=== PATIENT | male | born 1935 | race Caucasian/White ===

== ENCOUNTER → 2016-07-23 | Outpatient (CLI) | payer MEDICARE, BC ==
--- NOTE | 2016-07-23 10:40 | US ---
EXAMINATION TYPE: US thyroid st tissue head/neck DATE OF EXAM: 07/23/2016 10:11 AM COMPARISON: In PACS CLINICAL HISTORY: 80-year-old male follow-up Thyroid Nodules. TECHNIQUE: Multiple sonographic images of the thyroid gland are obtained. FINDINGS: Right Lobe: 4.6 x 2.1 x 1.4 cm Left Lobe: 3.2 x 1.6 x 1.6 cm Isthmus Thickness: 0.5 cm There is heterogeneous glandular parenchyma. NODULES RIGHT: # of nodules measured on right: 3 1. 1.2 X 0.9 x 1.2 cm heterogeneous isoechoic solid nodule at the lower pole. This Nodule is wider than tall and shows intranodular vascularity. Prior size: 1.1 x 1.4 x 1.3 cm, previously biopsied, stable in size to slightly smaller. 2. 0.6 X 0.4 x 0.5 cm hypoechoic solid nodule at the upper pole with well-defined margins and horse identifier ior through transmission. This nodule is wider than tall and shows intranodular vascularity. Prior size: 0.6 x 0.5 x 0.4 cm, stable. 3. 0.5 X 0.4 x 0.5 cm hypoechoic solid nodule at the posterior mid pole with well-defined margins; T his nodule is wider than tall and shows no intranodular vascularity. Prior size: Not visualized on prior LEFT: # of nodules measured on left: 0 ISTHMUS: # of nodules measured in the isthmus: 0 IMPRESSION: 1. 3 nodules in the right lobe, the largest measures 1.2 cm and is stable to slightly smaller and was previously biopsied. 2. A 5 mm nodule in the posterior mid right lobe may be new and can be reassessed at follow-up.
== END | disposition home or self-care (01) ==
LOC: RADUSWWP 09:49
PROVIDERS: ATTEND Family Medicine
DX: E04.2 Nontoxic multinodular goiter (principal)
CPT/HCPCS: 76536

== ENCOUNTER → 2017-02-05 | Outpatient (CLI) | payer MEDICARE, BC ==
--- NOTE | 2017-02-05 09:41 | US ---
EXAMINATION TYPE: US thyroid st tissue head/neck DATE OF EXAM: 02/05/2017 COMPARISON: 2017 US CLINICAL HISTORY: E04.2 Nontoxic multinodular goiter. follow up on known nodules GLAND SIZE: Right Lobe: 4.4 x 1.7 x 1.3 cm Overall Parenchyma: heterogenous Left Lobe: 3.6 x 2.0 x 1.7 cm Overall Parenchyma: heterogeneous Isthmus Thickness: 0.4 cm NODULES RIGHT: # of nodules measured on right: 3 1. 1.2 X 0.9 x 1.3 cm isoechoic solid nodule at the upper pole with well-defined margins. This nod ule is wider than tall and shows intranodular vascularity. Prior size: 1.2 x 0.9 x 1.2 cm 2. 0.6 X 0.3 x 0.5 cm hypoechoic solid nodule at the upper pole with well-defined margins. This nod ule is wider than tall and shows intranodular vascularity. Prior size: 0.6 x 0.4 x 0.5 cm 3. 0.5 X 0.4 x 0.5 cm hypoechoic solid nodule at the posterior mid pole with well-defined margins. This nodule is wider than tall and shows intranodular vascularity. Prior size: 0.5 x 0.4 x 0.5 cm LEFT: # of nodules measured on left: 0 ISTHMUS: # of nodules measured in the isthmus: 0 Bilateral neck scanned, no evidence of lymphadenopathy. Some exam limitations as the thyroid sits very low and scanning needs to work around the sternal notc h. IMPRESSION: Thyroid nodules are stable from comparison 07/23/2016.
== END | disposition home or self-care (01) ==
LOC: RADUSWWP 09:02
PROVIDERS: ATTEND Family Medicine
DX: E04.2 Nontoxic multinodular goiter (principal)
CPT/HCPCS: 76536

== ENCOUNTER → 2017-08-03 | Outpatient (CLI) | payer MEDICARE, BC ==
--- NOTE | 2017-08-03 15:36 | US ---
EXAMINATION TYPE: US thyroid st tissue head/neck DATE OF EXAM: 08/03/2017 COMPARISON: Thyroid ultrasound February 05, 2017 CLINICAL HISTORY: E04.1 Nontoxic single thyroid nodule. follow up exam, not on meds, no symptoms GLAND SIZE: Right Lobe: 2.6 x 1.4 x 2.7 cm Overall Parenchyma: heterogenous Left Lobe: 2.7 x 1.2 x 2.0 cm Overall Parenchyma: heterogeneous Isthmus Thickness: 0.4 cm NODULES RIGHT: # of nodules measured on right: 1 1. 0.7 X 0.7 x 0.6 cm isoechoic solid nodule at the lower pole with well-defined margins. This nod ule is wider than tall and shows intranodular vascularity. Prior size: 1.2 x 0.9 x 1.3 cm LEFT: # of nodules measured on left: 0 ISTHMUS: # of nodules measured in the isthmus: 0 Bilateral neck scanned, no evidence of lymphadenopathy. Difficult to image IMPRESSION: Thyroid gland remains small in size and heterogeneous in appearance with stable poorly defined small nodule right thyroid lobe. Smaller nodules marked by technologist prior study are not marked on today 's study. No worrisome new greater than 1 cm solid or cystic nodules are seen.
== END | disposition home or self-care (01) ==
LOC: RADUSWWP 14:55
PROVIDERS: ATTEND Family Medicine
DX: E04.1 Nontoxic single thyroid nodule (principal)
CPT/HCPCS: 76536

== ENCOUNTER → 2019-01-26 | Outpatient (CLI) | payer MEDICARE, BC ==
--- NOTE | 2019-01-26 16:02 | US ---
EXAMINATION TYPE: US thyroid st tissue head/neck DATE OF EXAM: 01/26/2019 COMPARISON: 08/03/2017 and 02/05/2017. CLINICAL HISTORY: E04.1 nontoxic single thyroid nodule. follow up exam GLAND SIZE: Right Lobe: 4.1 x 1.4 x 2.4 cm Overall Parenchyma: heterogenous Left Lobe: 3.2 x 1.2 x 1.7 cm Overall Parenchyma: heterogeneous Isthmus Thickness: 0.3 cm NODULES RIGHT: # of nodules measured on right: 2 1. 0.7 x 0.5 x 0.4cm hypoechoic solid nodule at the mid pole with margins; . This nodule is taller than wide and shows intranodular vascularity. Prior size:0.6 x 0.5 x 0.3 cm 2. 0.5 X 0.6 x 0.6 cm solid nodule at the lower pole with poorly defined margins. This nodule is wi sharlene than tall and shows intranodular vascularity. Prior size: 0.7 x 0.7 x 0.6 cm LEFT: # of nodules measured on left: 0 ISTHMUS: # of nodules measured in the isthmus: 0 Bilateral neck scanned, no evidence of lymphadenopathy. Multiple subcentimeter nodule seen, measured largest on the right IMPRESSION: Overall similar size of the subcentimeter right thyroid nodules in comparison to the prior of 08/03/19 18 and 02/05/2017.
== END | disposition home or self-care (01) ==
LOC: RADUSWWP 11:09
PROVIDERS: ATTEND Family Medicine
DX: E04.2 Nontoxic multinodular goiter (principal)
CPT/HCPCS: 76536

== ENCOUNTER → 2020-09-05 | Outpatient (CLI) | payer MEDICARE, BC ==
--- NOTE | 2020-09-05 12:00 | US ---
EXAMINATION TYPE: US thyroid st tissue head/neck DATE OF EXAM: 09/05/2020 COMPARISON: US January 26, 2019 CLINICAL HISTORY: E04.1 Non-toxic. F/U previous GLAND SIZE: Right Lobe: 3.3 x 1.6 x 1.1 cm Overall Parenchyma: heterogenous Left Lobe: 2.6 x 1.3 x 1.2 cm Overall Parenchyma: heterogeneous Isthmus Thickness: 0.3 cm NODULES RIGHT: # of nodules measured on right: 2 1. 0.5 X 0.3 x 0.5 cm solid or almost completely solid, isoechoic nodule, which is wider than tall, with ill-defined margins, without echogenic foci. Prior size: 0.5 x 0.6 x 0.6 cm 2. 0.5 X 0.3 x 0.6 cm mixed cystic and solid, hypoechoic nodule, which is wider than tall, with ill -defined margins, without echogenic foci. Prior size: 0.5 x 0.4 x 0.7 cm Bilateral neck scanned, no evidence of lymphadenopathy. Stable sub-centimeter nodules right lobe. Persistent heterogeneous small sized thyroid with stable small right-sided nodules marked by technolo gist. IMPRESSION: As above. No new or enlarging greater than 1 cm solid nodules.
== END ==
LOC: RADUSWWP 10:55
PROVIDERS: ATTEND Family Medicine
DX: E04.2 Nontoxic multinodular goiter (principal)
CPT/HCPCS: 76536

== ENCOUNTER 2021-04-19 08:44 | Inpatient (IN) | payer MEDICARE, BC ==
[2021-04-19] MEDS ORDERED: SODIUM CHLORIDE 0.9% 1,000 ML IV STA (09:23)
[2021-04-19] MEDS ORDERED: KETOROLAC 15 MG/ML 1 ML VIAL IVP STA (09:26)
--- NOTE | 2021-04-19 09:26 | ED ---
Abdominal Pain HPI - General Chief Complaint: Abdominal Pain Stated Complaint: right side abd pain Time Seen by Provider: 04/19/21 08:58 Source: patient, family, RN notes reviewed Mode of arrival: ambulatory Limitations: no limitations - History of Present Illness Initial Comments: 85-year-old female with a prior history of appendectomy who states he had the onset 2 days ago of right lower quadrant abdominal pain constant somewhat achy nonradiating somewhat worse with movement no overt fevers chills or sweats no nausea vomiting diarrhea. He states is feeling somewhat better than had been currently is about 8/10 severity. No dysuria hematuria no history kidney stones he states. No other complaints or modifying factors MD Complaint: abdominal pain - Related Data Home Medications Medication Instructions Recorded Confirmed Cholecalciferol [Vitamin D3 (25 50 mcg PO DAILY 03/21/14 04/19/21 Mcg = 1000 Iu)] Pravastatin Sodium 40 mg PO HS 03/21/14 04/19/21 Potassium Chloride [Klor-Con 20] 20 meq PO HS 02/20/15 04/19/21 Potassium Chloride [Klor-Con 20] 40 meq PO DAILY 02/20/15 04/19/21 metFORMIN HCL [Glucophage] 500 mg PO AC-BID 12/18/15 04/19/21 Aspirin EC [Ecotrin Low Dose] 81 mg PO DAILY 04/19/21 04/19/21 Atenolol/Chlorthalidone 1 tab PO DAILY 04/19/21 04/19/21 [Atenolol/Chlorthalidone 100-25] Melatonin [Melatonin Disolving 10 mg PO HS 04/19/21 04/19/21 Tablet] Vitamin C/Biotin [Hair, Skin and 1 tab PO DAILY 04/19/21 04/19/21 Nails Chew] lisinopriL [Zestril] 2.5 mg PO DAILY 04/19/21 04/19/21 Allergies Allergy/AdvReac Type Severity Reaction Status Date / Time No Known Allergies Allergy Verified 04/19/21 13:34 Review of Systems ROS Statement: Those systems with pertinent positive or pertinent negative responses have been documented in the HPI. ROS Other: All systems not noted in ROS Statement are negative. Past Medical History Past Medical History: Diabetes Mellitus, Hearing Disorder / Deafness, Hyperlipidemia, Hypertension, Osteoarthritis (OA), Prostate Disorder, Thyroid Disorder Additional Past Medical History / Comment(s): 01/02/15 PT admitted to floor s/p total L knee. Other HX: Bradycardia, diet control diabetic, L neck mass which needs to be bx soon, enlarged prostate, hypothyroid, colon polyp, cataracts bilaterally, pain magangement consult for back pain History of Any Multi-Drug Resistant Organisms: None Reported Past Surgical History: Adenoidectomy, Appendectomy, Joint Replacement, Orthope dic Surgery, Tonsillectomy Additional Past Surgical History / Comment(s): 01/02/15 Total L knee arthroplasty, colonoscopy with polypectomy-benign, KNEE ARTHROSCOPIC LEFT X2, L knee injections, hemorrhoidectomy, PAIN CLINIC INJECTIONS Past Anesthesia/Blood Transfusion Reactions: No Reported Reaction Past Psychological History: No Psychological Hx Reported Smoking Status: Never smoker Past Alcohol Use History: None Reported Past Drug Use History: None Reported - Past Family History Father Family Medical History: COPD Additional Family Medical History / Comment(s): Father was a smoker. Brother(s) Family Medical History: Cancer Additional Family Medical History / Comment(s): colon Sister(s) Family Medical History: Cancer Additional Family Medical History / Comment(s): colon Mother Family Medical History: Cancer Additional Family Medical History / Comment(s): colon-had colostomy. at 82yrs. General Exam - General Exam Comments Initial Comments: This is a well-developed well-nourished awake alert oriented 3 male Limitations: no limitations General appearance: alert, in no apparent distress Head exam: Present: atraumatic, normocephalic, normal inspection Eye exam: Present: normal appearance, PERRL, EOMI. Absent: scleral icterus, conjunctival injection, periorbital swelling ENT exam: Present: normal exam, mucous membranes moist Neck exam: Present: normal inspection, full ROM. Absent: tenderness, meningismus, lymphadenopathy Respiratory exam: Present: normal lung sounds bilaterally. Absent: respiratory distress, wheezes, rales, rhonchi, stridor Cardiovascular Exam: Present: regular rate, normal rhythm, normal heart sounds. Absent: systolic murmur, diastolic murmur, rubs, gallop, clicks GI/Abdominal exam: Present: soft, tenderness, normal bowel sounds. Absent: distended, guarding, rebound, rigid, bruit, pulsatile mass, hernia (Tenderness palpation of the right lower quadrant radiating anterior lateral abdomen no localized guarding rebound masses or bruits however) Rectal exam: Present: deferred exam: Present: normal inspection Extremities exam: Present: normal inspection, full ROM, normal capillary refill. Absent: tenderness, pedal edema, joint swelling, calf tenderness Back exam: Present: normal inspection Neurological exam: Present: alert, oriented X3, CN II-XII intact Psychiatric exam: Present: normal affect, normal mood Skin exam: Present: warm, dry, intact, normal color. Absent: rash Course Vital Signs 04/19/21 04/19/21 04/19/21 08:46 09:52 11:07 Temperature 98.2 F Pulse Rate 82 75 72 Respiratory 18 18 18 Rate Blood Pressure 146/90 122/75 117/72 O2 Sat by Pulse 96 96 100 Oximetry 04/19/21 12:34 Temperature Pulse Rate 70 Respiratory 18 Rate Blood Pressure 111/59 O2 Sat by Pulse 95 Oximetry Medical Decision Making - Medical Decision Making I did discuss findings with patient family and Dr. Mcdowell and Dr. Garza. Patient be admitted place an IV antibiotics and further evaluation patient. - Lab Data Result diagrams: 04/19/21 09:47 04/19/21 09:47 Lab Results 04/19/21 04/19/21 04/19/21 Range/Units 09:47 09:47 09:47 WBC 25.1 H (3.8-10.6) k/uL RBC 5.12 (4.30-5.90) m/uL Hgb 15.6 (13.0-17.5) gm/dL Hct 46.2 (39.0-53.0) % MCV 90.2 (80.0-100.0) fL MCH 30.6 (25.0-35.0) pg MCHC 33.9 (31.0-37.0) g/dL RDW 13.4 (11.5-15.5) % Plt Count 255 (150-450) k/uL MPV 6.7 Neutrophils % 85 % Lymphocytes % 8 % Monocytes % 4 % Eosinophils % 1 % Basophils % 0 % Neutrophils # 21.4 H (1.3-7.7) k/uL Lymphocytes # 2.1 (1.0-4.8) k/uL Monocytes # 1.1 H (0-1.0) k/uL Eosinophils # 0.2 (0-0.7) k/uL Basophils # 0.1 (0-0.2) k/uL Sodium 130 L (137-145) mmol/L Potassium 4.1 (3.5-5.1) mmol/L Chloride 97 L (98-107) mmol/L Carbon Dioxide 23 (22-30) mmol/L Anion Gap 10 mmol/L BUN 15 (9-20) mg/dL Creatinine 0.79 (0.66-1.25) mg/dL Est GFR (CKD-EPI)AfAm >90 (>60 ml/min/1.73 sqM) Est GFR (CKD-EPI)NonAf 82 (>60 ml/min/1.73 sqM) Glucose 153 H (74-99) mg/dL Plasma Lactic Acid Mason 1.3 (0.7-2.0) mmol/L Calcium 9.7 (8.4-10.2) mg/dL Total Bilirubin 2.8 H (0.2-1.3) mg/dL AST 20 (17-59) U/L ALT 13 (4-49) U/L Alkaline Phosphatase 54 (38-126) U/L Troponin I (0.000-0.034) ng/mL Total Protein 7.5 (6.3-8.2) g/dL Albumin 4.1 (3.5-5.0) g/dL Amylase 63 (30-110) U/L Lipase 39 (23-300) U/L Urine Color Urine Appearance (Clear) Urine pH (5.0-8.0) Ur Specific [place] (1.001-1.035) Urine Protein (Negative) Urine Glucose (UA) (Negative) Urine Ketones (Negative) Urine Blood (Negative) Urine Nitrite (Negative) Urine Bilirubin (Negative) Urine Urobilinogen (<2.0) mg/dL Ur Leukocyte Esterase (Negative) 04/19/21 04/19/21 Range/Units 09:47 11:07 WBC (3.8-10.6) k/uL RBC (4.30-5.90) m/uL Hgb (13.0-17.5) gm/dL Hct (39.0-53.0) % MCV (80.0-100.0) fL MCH (25.0-35.0) pg MCHC (31.0-37.0) g/dL RDW (11.5-15.5) % Plt Count (150-450) k/uL MPV Neutrophils % % Lymphocytes % % Monocytes % % Eosinophils % % Basophils % % Neutrophils # (1.3-7.7) k/uL Lymphocytes # (1.0-4.8) k/uL Monocytes # (0-1.0) k/uL Eosinophils # (0-0.7) k/uL Basophils # (0-0.2) k/uL Sodium (137-145) mmol/L Potassium (3.5-5.1) mmol/L Chloride (98-107) mmol/L Carbon Dioxide (22-30) mmol/L Anion Gap mmol/L BUN (9-20) mg/dL Creatinine (0.66-1.25) mg/dL Est GFR (CKD-EPI)AfAm (>60 ml/min/1.73 sqM) Est GFR (CKD-EPI)NonAf (>60 ml/min/1.73 sqM) Glucose (74-99) mg/dL Plasma Lactic Acid Mason (0.7-2.0) mmol/L Calcium (8.4-10.2) mg/dL Total Bilirubin (0.2-1.3) mg/dL AST (17-59) U/L ALT (4-49) U/L Alkaline Phosphatase (38-126) U/L Troponin I <0.012 (0.000-0.034) ng/mL Total Protein (6.3-8.2) g/dL Albumin (3.5-5.0) g/dL Amylase (30-110) U/L Lipase (23-300) U/L Urine Color Yellow Urine Appearance Clear (Clear) Urine pH 6.5 (5.0-8.0) Ur Specific [place] 1.015 (1.001-1.035) Urine Protein Trace H (Negative) Urine Glucose (UA) Negative (Negative) Urine Ketones Negative (Negative) Urine Blood Negative (Negative) Urine Nitrite Negative (Negative) Urine Bilirubin Negative (Negative) Urine Urobilinogen 2.0 (<2.0) mg/dL Ur Leukocyte Esterase Negative (Negative) - Radiology Data Radiology results: report reviewed (Imaging reviewed evidence of cholecystitis with cholelithiasis), image reviewed Disposition Clinical Impression: Abdominal pain, Acute cholecystitis, Cholelithiasis, Leukocytosis Disposition: ADMITTED IP TO THIS HOSP Condition: Fair Referrals: Waldemar Phillips DO [Primary Care Provider] - 1-2 days
--- NOTE | 2021-04-19 09:49 | XR ---
KUB HISTORY: Abdominal pain. COMPARISON: None. TECHNIQUE: 2 upright views the abdomen were obtained. FINDINGS: The visualized lung bases are clear. There is no free air beneath the diaphragm. The bowel gas pattern is nonspecific and there is no evidence of obstruction. No suspicious abdominal or pelvic calcification are seen. The osseous structures are intact. There are degenerative changes in the hips and lumbar spine. IMPRESSION: Nonspecific abdomen without evidence of free air or obstruction.
[2021-04-19 09:53] LABS: Basophils # (A) 0.1 k/uL (0-0.2); Basophils % (A) 0 %; Eosinophils # (A) 0.2 k/uL (0-0.7); Eosinophils % (A) 1 %; HCT 46.2 % (39.0-53.0); HGB 15.6 gm/dL (13.0-17.5); Lymphocytes # (A) 2.1 k/uL (1.0-4.8); Lymphocytes % (A) 8 %; MCH 30.6 pg (25.0-35.0); MCHC 33.9 g/dL (31.0-37.0); MCV 90.2 fL (80.0-100.0); Mean Platelet Volume 6.7; Monocytes # (A) 1.1 k/uL (0-1.0); Monocytes % (A) 4 %; Neutrophils # (A) 21.4 k/uL (1.3-7.7); Neutrophils % (A) 85 %; Platelet Count 255 k/uL (150-450); RBC 5.12 m/uL (4.30-5.90); RDW 13.4 % (11.5-15.5); WBC 25.1 k/uL (3.8-10.6)
[2021-04-19 10:26] LABS: ALT 13 U/L (4-49); AST 20 U/L (17-59); African American GFR (CKD) >90 (>60 ml/min/1.73 sqM); Albumin 4.1 g/dL (3.5-5.0); Alkaline Phosphatase 54 U/L (38-126); Amylase 63 U/L (30-110); Anion Gap 10 mmol/L; Blood Urea Nitrogen 15 mg/dL (9-20); Calcium 9.7 mg/dL (8.4-10.2); Carbon Dioxide 23 mmol/L (22-30); Chloride 97 mmol/L (98-107); Glucose 153 mg/dL (74-99); Lipase 39 U/L (23-300); Non-African American GFR(CKD) 82 (>60 ml/min/1.73 sqM); Potassium 4.1 mmol/L (3.5-5.1); Sodium 130 mmol/L (137-145); Total Bilirubin 2.8 mg/dL (0.2-1.3); Total Protein 7.5 g/dL (6.3-8.2)
[2021-04-19 11:32] LABS: Appearance,Urine Clear (Clear); Bilirubin,Urine Negative (Negative); Blood,Urine Negative (Negative); Color,Urine Yellow; Glucose,Urine (UA) Negative (Negative); Ketones,Urine Negative (Negative); Leukocyte Esterase,Urine Negative (Negative); Nitrite,Urine Negative (Negative); PH, Urine 6.5 (5.0-8.0); Protein,Urine Trace (Negative); Specific Gravity,Urine 1.015 (1.001-1.035)
--- NOTE | 2021-04-19 12:41 | CT ---
EXAMINATION TYPE: CT abdomen pelvis w con DATE OF EXAM: 04/19/2021 COMPARISON: None HISTORY: Right-sided abdominal pain CT DLP: 1328 mGycm Automated exposure control for dose reduction was used. TECHNIQUE: Helical acquisition of images was performed from the lung bases through the pelvis. CONTRAST: 100 mL nonionic IV contrast. FINDINGS: There is mild interstitial scarring or atelectasis the right lung base otherwise the visualized lung bases are clear of significant pleural effusion or airspace consolidation. The gallbladder is mildly distended there are multiple gallstones. The wall is mildly thickened and t here is pericholecystic inflammation. The findings are consistent with acute cholecystitis. There is no intrahepatic biliary ductal dilatation. There is no focal mass within the liver, pancreas spleen o r adrenal glands. The kidneys excrete contrast promptly and symmetrically is no solid renal mass or hydronephrosis. The re is a simple cortical cyst of the right kidney. There is no retroperitoneal adenopathy or hemorrhage in the caliber of the abdominal aorta is normal. The bowel loops are normal in caliber and there is no evidence of obstruction. There is marked divert iculosis of the colon but no CT evidence of diverticulitis. There is a suggestion of a mass along rig ht lateral aspect of the urinary bladder but evaluation of bladder is limited due to lack of contrast within the bladder. There is no pelvic adenopathy or free fluid. The osseous structures are grossly intact. IMPRESSION: 1. Findings consistent with acute cholecystitis with cholelithiasis. 2. questionable mass within the urinary bladder and further evaluation is warranted.
[2021-04-19] MEDS ORDERED: PIPERACILLIN-TAZOBACTAM 3.375 GM in SODIUM CHLORIDE 0.9% 100 ML IVPB STA (13:42)
[2021-04-19] MEDS ORDERED: NALOXONE 0.4 MG/ML 1 ML VIAL IV PRN (13:45)
[2021-04-19] MEDS: SODIUM CHLORIDE 0.9% 1,000 ML IV SCH ×2 (14:15→21:11)
--- NOTE | 2021-04-19 18:31 | P.GSCN ---
History of Present Illness Consult date: 04/19/21 History of present illness: CHIEF COMPLAINT: Right upper quadrant abdominal pain 3 days HISTORY OF PRESENT ILLNESS: The patient is a 85 year old male who presents to the emergency room after developing severe right upper quadrant abdominal pain 3 days ago. Patient reports having chicken soup including ice cream. Denies any prior episodes. He had nausea and vomiting. Since admission, he reports abdominal has improved after medications. Denies any significant cardiac disease. PAST MEDICAL HISTORY: See list and reviewed PAST SURGICAL HISTORY: See list and reviewed MEDICATIONS: See list and reviewed ALLERGIES: See list and reviewed SOCIAL HISTORY: See list and reviewed FAMILY HISTORY: See list and reviewed REVIEW OF ORGAN SYSTEMS: CONSTITUTIONAL: No fevers or chills. EYES: Denies any trouble with vision. Wears glasses. HEENT: Has difficulties with hearing. No nosebleeds. No difficulty swallowing. RESPIRATORY: Denies pneumonia. Denies any troubles with breathing or dyspnea on exertion. CARDIOVASCULAR: Denies any chest pain, palpitations, or recent heart attacks. Has hypertensive heart disease. Has hyperlipidemia. GASTROINTESTINAL: Denies fatty food intolerance. Denies change in bowel habits and gas bloat. GENITOURINARY: Denies any blood in urine or increased urinary frequency. He has enlarged prostate. NEUROLOGICAL: Denies any numbness or tingling along the distal extremities. No seizure disorders or headaches. MUSCULOSKELETAL: Has back pain, stiffness or joint arthritis. SKIN: No current skin cancer. No rash. PSYCHIATRIC: Denies current depression or suicidal thoughts. ENDOCRINE: Has hypothyroidism. Has diabetes type 2 [id number] HEME/LYMPHATIC: Denies any lumps and bumps around the neck. No recent deep venous thrombosis. ALLERGY/IMMUNOLOGY: No immunoglobulin therapy. No immune deficiencies. BREAST: Denies current breast lumps, pain or nipple discharge. PHYSICAL EXAM: VITALS: Reviewed CONSTITUTIONAL: Well developed and in no acute distress. EYES: Conjuctivae without sclera icterus. Extraocular movements grossly intact. HEAD, EARS, NOSE, THROAT: Moist buccal mucosa. Head is atraumatic, normocephalic. Hears conversational speech. No nasal drainage. NECK: Supple. No JV distention. No thyroidomegaly. RESPIRATORY: Non-labored respirations and equal bilateral excursions. No gross wheezes. CARDIOVASCULAR: Regular rate and rhythm. Extremities without moderate edema. Palpable 2+ radial pulses. ABDOMEN: Mild tenderness right upper quadrant. No peritonitis. LYMPH: No neck lymphadenopathy. MUSCULOSKELETAL: Nail and fingers with good capillary refill. SKIN: Warm and well perfused with good skin turgor. NEUROLOGIC: Cranial nerves II through XII grossly intact. Sensation upper and extremities intact. No focal or lateralizing signs. PSYCH: Appropriate affect. Alert and oriented to person, place and time. Displays appropriate insight. CLINCAL LABS: Reviewed. WBC elevated over 25,000. Sodium low at 130. Total bilirubin elevated at 2.8. IMAGING: Independently reviewed CT of the abdomen and pelvis independently reviewed demonstrates diverticulosis. Gallstones with dilated gallbladder inflammatory changes identified with cholecystitis. Left inguinal hernia with sigmoid colon identified. RADIOLOGY: Report reviewed of the CT of the abdomen and pelvis demonstrates questionable mass in the bladder. ASSESSMENT: 1. Acute cholecystitis with leukocytosis and sepsis 2. Left inguinal hernia with large bowel 3. Diabetes type 2, [id number]-hkojkbnot 4. Hypertensive heart disease PLAN: 1. IV antibiotics for sepsis and acute cholecystitis 2. 12-lead EKG advised 3. Robotic cholecystectomy reviewed with the patient and wrists due to hypertensive heart disease including diabetes ADVANCE DIRECTIVE: Thank you for this kind consultation. Past Medical History Past Medical History: Diabetes Mellitus, Hearing Disorder / Deafness, Hyperlipidemia, Hypertension, Osteoarthritis (OA), Prostate Disorder, Thyroid Disorder Additional Past Medical History / Comment(s): 01/02/15 PT admitted to floor s/p total L knee. Other HX: Bradycardia, diet control diabetic, L neck mass which needs to be bx soon, enlarged prostate, hypothyroid, colon polyp, cataracts bilaterally, pain magangement consult for back pain History of Any Multi-Drug Resistant Organisms: None Reported Past Surgical History: Adenoidectomy, Appendectomy, Joint Replacement, Orthopedic Surgery, Tonsillectomy Additional Past Surgical History / Comment(s): 01/02/15 Total L knee arthroplasty, colonoscopy with polypectomy-benign, KNEE ARTHROSCOPIC LEFT X2, L knee injections, hemorrhoidectomy, PAIN CLINIC INJECTIONS Past Anesthesia/Blood Transfusion Reactions: No Reported Reaction Past Psychological History: No Psychological Hx Reported Smoking Status: Never smoker Past Alcohol Use History: None Reported Past Drug Use History: None Reported - Past Family History Father Family Medical History: COPD Additional Family Medical History / Comment(s): Father was a smoker. Brother(s) Family Medical History: Cancer Additional Family Medical History / Comment(s): colon Sister(s) Family Medical History: Cancer Additional Family Medical History / Comment(s): colon Mother Family Medical History: Cancer Additional Family Medical History / Comment(s): colon-had colostomy. at 82yrs. Medications and Allergies Home Medications Medication Instructions Recorded Confirmed Type Cholecalciferol [Vitamin D3 (25 50 mcg PO DAILY 03/21/14 04/19/21 History Mcg = 1000 Iu)] Pravastatin Sodium 40 mg PO HS 03/21/14 04/19/21 History Potassium Chloride [Klor-Con 20] 20 meq PO HS 02/20/15 04/19/21 History Potassium Chloride [Klor-Con 20] 40 meq PO DAILY 02/20/15 04/19/21 History metFORMIN HCL [Glucophage] 500 mg PO AC-BID 12/18/15 04/19/21 History Aspirin EC [Ecotrin Low Dose] 81 mg PO DAILY 04/19/21 04/19/21 History Atenolol/Chlorthalidone 1 tab PO DAILY 04/19/21 04/19/21 History [Atenolol/Chlorthalidone 100-25] Melatonin [Melatonin Disolving 10 mg PO HS 04/19/21 04/19/21 History Tablet] Vitamin C/Biotin [Hair, Skin and 1 tab PO DAILY 04/19/21 04/19/21 History Nails Chew] lisinopriL [Zestril] 2.5 mg PO DAILY 04/19/21 04/19/21 History Allergies Allergy/AdvReac Type Severity Reaction Status Date / Time No Known Allergies Allergy Verified 04/19/21 13:34 Surgical - Exam Vital Signs Temp Pulse Resp BP Pulse Ox 98.2 F 82 18 146/90 96 04/19/21 08:46 04/19/21 08:46 04/19/21 08:46 04/19/21 08:46 04/19/21 08:46 Results - Labs 04/19/21 09:47 04/19/21 09:47 Abnormal Lab Results - Last 24 Hours (Table) 04/19/21 04/19/21 04/19/21 Range/Units 09:47 09:47 11:07 WBC 25.1 H (3.8-10.6) k/uL Neutrophils # 21.4 H (1.3-7.7) k/uL Monocytes # 1.1 H (0-1.0) k/uL Sodium 130 L (137-145) mmol/L Chloride 97 L (98-107) mmol/L Glucose 153 H (74-99) mg/dL Total Bilirubin 2.8 H (0.2-1.3) mg/dL Urine Protein Trace H (Negative) Diabetes panel 04/19/21 Range/Units 09:47 Sodium 130 L (137-145) mmol/L Potassium 4.1 (3.5-5.1) mmol/L Chloride 97 L (98-107) mmol/L Carbon Dioxide 23 (22-30) mmol/L BUN 15 (9-20) mg/dL Creatinine 0.79 (0.66-1.25) mg/dL Glucose 153 H (74-99) mg/dL Calcium 9.7 (8.4-10.2) mg/dL AST 20 (17-59) U/L ALT 13 (4-49) U/L Alkaline Phosphatase 54 (38-126) U/L Total Protein 7.5 (6.3-8.2) g/dL Albumin 4.1 (3.5-5.0) g/dL Calcium panel 04/19/21 Range/Units 09:47 Calcium 9.7 (8.4-10.2) mg/dL Albumin 4.1 (3.5-5.0) g/dL Pituitary panel 04/19/21 Range/Units 09:47 Sodium 130 L (137-145) mmol/L Potassium 4.1 (3.5-5.1) mmol/L Chloride 97 L (98-107) mmol/L Carbon Dioxide 23 (22-30) mmol/L BUN 15 (9-20) mg/dL Creatinine 0.79 (0.66-1.25) mg/dL Glucose 153 H (74-99) mg/dL Calcium 9.7 (8.4-10.2) mg/dL Adrenal panel 04/19/21 Range/Units 09:47 Sodium 130 L (137-145) mmol/L Potassium 4.1 (3.5-5.1) mmol/L Chloride 97 L (98-107) mmol/L Carbon Dioxide 23 (22-30) mmol/L BUN 15 (9-20) mg/dL Creatinine 0.79 (0.66-1.25) mg/dL Glucose 153 H (74-99) mg/dL Calcium 9.7 (8.4-10.2) mg/dL Total Bilirubin 2.8 H (0.2-1.3) mg/dL AST 20 (17-59) U/L ALT 13 (4-49) U/L Alkaline Phosphatase 54 (38-126) U/L Total Protein 7.5 (6.3-8.2) g/dL Albumin 4.1 (3.5-5.0) g/dL Assessment and Plan (1) Sepsis Current Visit: Yes Status: Acute Code(s): A41.9 - SEPSIS, UNSPECIFIED ORGANISM SNOMED Code(s): 12094521 (2) Acute cholecystitis Current Visit: Yes Status: Acute Code(s): K81.0 - ACUTE CHOLECYSTITIS SNOMED Code(s): 46384445 (3) Cholelithiasis Current Visit: Yes Status: Acute Code(s): K80.20 - CALCULUS OF GALLBLADDER W/O CHOLECYSTITIS W/O OBSTRUCTION SNOMED Code(s): 716421102 (4) Leukocytosis Current Visit: Yes Status: Acute Code(s): D72.829 - ELEVATED WHITE BLOOD CELL COUNT, UNSPECIFIED SNOMED Code(s): 691329097
--- NOTE | 2021-04-19 18:54 | XR ---
EXAMINATION TYPE: XR chest 2V DATE OF EXAM: 04/19/2021 COMPARISON: 01/17/2011 HISTORY: Short of breath TECHNIQUE: FINDINGS: Heart is normal. There is some minimal reticular nodular density left upper lobe. There is no pulmonary consolidation. There are no hilar masses. Costophrenic angles are clear. Bony thorax is intact. IMPRESSION: Minimal nodular infiltrate left upper lobe appears new compared to old exam. No suspiciou s pulmonary mass. No heart failure.
[2021-04-19] MEDS: HEPARIN SODIUM,PORCINE/PF 5,000 UNIT/0.5 ML SYRINGE SQ SCH (21:11)
[2021-04-19] MEDS: PRAVASTATIN SODIUM 40 MG TAB PO SCH (21:11)
[2021-04-19] MEDS: MELATONIN 5 MG TABLET PO SCH (21:12)
[2021-04-20] MEDS: PIPERACILLIN-TAZOBACTAM 3.375 GM in SODIUM CHLORIDE 0.9% 100 ML IVPB SCH ×3 (00:19→14:55)
[2021-04-20] MEDS: SODIUM CHLORIDE 0.9% 1,000 ML IV SCH ×2 (05:51→14:55)
[2021-04-20] MEDS: HEPARIN SODIUM,PORCINE/PF 5,000 UNIT/0.5 ML SYRINGE SQ SCH ×2 (07:36→21:22)
[2021-04-20] MEDS: atenoloL 50 MG TAB PO SCH (08:32)
--- NOTE | 2021-04-20 10:03 | P.PN ---
Subjective Progress Note Date: 04/20/21 CHIEF COMPLAINT: Right upper quadrant abdominal pain, cholecystitis. HISTORY OF PRESENT ILLNESS: The patient is a 85 year old male who presented to the emergency room with CT findings of acute cholecystitis and leukocytosis WBC over 20k. He reports he feels well. He does see a cook chill technician, "my heart is a little slow." REVIEW OF ORGAN SYSTEMS: "I have a slow heart." Denies active chest pain. No cur rent shortness of breath. No nausea or vomiting. PHYSICAL EXAM: VITALS: Reviewed CONSTITUTIONAL: Well developed and in no acute distress. EYES: Conjuctivae without sclera icterus. Extraocular movements grossly intact. HEAD, EARS, NOSE, THROAT: Moist buccal mucosa. Head is atraumatic, normocep halic. Hears conversational speech. No nasal drainage. Wears glasses. NECK: Supple. No JV distention. No thyroidomegaly. RESPIRATORY: Non-labored respirations and equal bilateral excursions. No gross wheezes. Oxygen saturation low less than 92%, new. CARDIOVASCULAR: Palpable 2+ radial pulses. ABDOMEN: Mild tenderness right upper quadrant. No peritonitis. MUSCULOSKELETAL: Nail and fingers with good capillary refill. SKIN: Warm and well perfused with good skin turgor. NEUROLOGIC: Cranial nerves II through XII grossly intact. Sensation upper and extremities intact. No focal or lateralizing signs. PSYCH: Appropriate affect. Alert and oriented to person, place and time. Displays appropriate insight. CLINCAL LABS: Reviewed. WBC elevated over 25,000. Current labs pending. EKG: Abnormal with right bundle branch block and 1st degree AV block. (no prior for comparison) ASSESSMENT: 1. Acute cholecystitis with leukocytosis and sepsis 2. Left inguinal hernia with large bowel 3. Diabetes type 2, ovz-roirfmd-tcswqztof 4. Hypertensive heart disease 5. 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 With current abnormalities and high risk surgery, recommend cardiac risk stratification with cardiology consultation. 2. Surgery canceled. 3. Alternatives for less invasive procedures available. 4. Will get HIDA scan for possible cholecystostomy tube placement. 5. Continue IV antibiotics. 6. Recommend incentive spirometry. Objective - Vital Signs Vital signs: Vital Signs Temp 97.9 F 04/20/21 08:00 Pulse 71 04/20/21 08:00 Resp 16 04/20/21 08:00 BP 121/77 04/20/21 08:00 Pulse Ox 92 L 04/20/21 08:00 Intake & Output 04/19/21 04/20/21 04/20/21 18:59 06:59 18:59 Intake Total 360 Balance 360 Weight 83.007 kg Intake: Oral 360 Other: Voiding Method Toilet Urinal # Voids 2 - Labs CBC & Chem 7: 04/19/21 09:47 04/19/21 09:47 Labs: Abnormal Lab Results - Last 24 Hours (Table) 04/19/21 04/19/21 Range/Units 09:47 11:07 Sodium 130 L (137-145) mmol/L Chloride 97 L (98-107) mmol/L Glucose 153 H (74-99) mg/dL Total Bilirubin 2.8 H (0.2-1.3) mg/dL Urine Protein Trace H (Negative) Assessment and Plan (1) Sepsis Current Visit: Yes Status: Acute Code(s): A41.9 - SEPSIS, UNSPECIFIED ORGANISM SNOMED Code(s): 20820926 (2) Acute cholecystitis Current Visit: Yes Status: Acute Code(s): K81.0 - ACUTE CHOLECYSTITIS SNOMED Code(s): 89210346 (3) Cholelithiasis Current Visit: Yes Status: Acute Code(s): K80.20 - CALCULUS OF GALLBLADDER W/O CHOLECYSTITIS W/O OBSTRUCTION SNOMED Code(s): 529637263 (4) Leukocytosis Current Visit: Yes Status: Acute Code(s): D72.829 - ELEVATED WHITE BLOOD CELL COUNT, UNSPECIFIED SNOMED Code(s): 383921965 (5) AV block, 1st degree Current Visit: Yes Status: Acute Code(s): I44.0 - ATRIOVENTRICULAR BLOCK, FIRST DEGREE SNOMED Code(s): 073252453 (6) Right bundle branch block (RBBB) Current Visit: Yes Status: Acute Code(s): I45.10 - UNSPECIFIED RIGHT BUNDLE- BRANCH BLOCK SNOMED Code(s): 58551601
--- NOTE | 2021-04-20 10:05 | CONS ---
CONSULTATION CHIEF COMPLAINT: Preop cardiac evaluation. HISTORY OF PRESENT ILLNESS: This is an 85-year-old gentleman with history of [id number]-ufxycdnfp diabetes, hypertension, dyslipidemia, who presented to hospital with right upper quadrant pain and had been diagnosed with acute cholecystitis. He is to undergo surgery by Dr. Tineo today. We have been consulted for preop cardiac evaluation. His EKG shows sinus rhythm with right bundle branch block and first-degree AV block. The patient carries a history of bradycardia and sees my associate Dr. Salazar on a regular basis. There is no prior history of coronary artery disease or congestive heart failure. There is no prior history of syncope. Prior to this admission, patient has been fairly active and did not have shortness of breath, leg edema, PND, orthopnea, chest pain with activity. I will obtain a 2D echo to document his LV function. I do not see any contraindications for surgery under anesthesia at this time. PAST MEDICAL HISTORY: Significant for ozc-bpervgr-zuhxmkzcz diabetes, hypertension, dyslipidemia, and bradycardia. MEDICATIONS: Include Glucophage 500 b.i.d., Zestril 2.5 daily, pravastatin 40 daily, K-Dur 20 daily, melatonin, Tenoretic, aspirin. ALLERGIES: There are no known drug allergies. FAMILY HISTORY: Negative for premature coronary artery disease. SOCIAL HISTORY: Negative for smoking, EtOH abuse, or drug abuse. REVIEW OF SYSTEMS: HEENT is unremarkable. CARDIAC as described above. RESPIRATORY: Negative. GI as described above. GENITOURINARY negative. ALLERGY/IMMUNOLOGY: None. SKIN negative. MUSCULOSKELETAL negative. ENDOCRINE negative. CONSTITUTIONAL: Negative. ONCOLOGICAL: Negative. BAR ATTENDANT negative. Rest of the system review is not relevant. PHYSICAL EXAMINATION: Afebrile. Heart rate is 70 beats per minute. Blood pressure is 120/77, respiratory 16. There is no jugular venous distention. Carotid upstroke is normal. There is no bruit. Chest exam reveals good air entry bilaterally. Heart exam reveals first and second heart sounds and a systolic murmur at the apex. Abdomen is soft. There is mild tenderness in the right upper quadrant. Examination of the EXTREMITIES did not reveal any edema. Peripheral pulses are felt. EKG shows sinus rhythm with right bundle branch block and first-degree AV block. LABS: Labs show that the hemoglobin is 15.6, white cell count is elevated at 25, potassium is 4.1 creatinine is 0.7. Troponin is negative. ASSESSMENT: 1. Preop cardiac evaluation. 2. Acute cholecystitis. 3. Hypertension. 4. Abnormal EKG. 5. History of bradycardia. PLAN: There are no contraindications to surgery under anesthesia at this time. The patient is not in overt heart failure, is not having acute coronary syndrome and physical exam does not reveal aortic stenosis. I will obtain a 2D echo on him to evaluate his LV function, but proceed with surgery. EZEKIEL / EULALIA: [id number] /
[2021-04-20 11:13] LABS: HCT 42.8 % (39.6-50.0); HGB 14.6 g/dL (13.0-17.0); MCH 30.5 pg (27.0-32.0); MCHC 34.1 g/dL (32.0-37.0); MCV 89.5 fL (80.0-97.0); Mean Platelet Volume 9.4 fL (9.5-12.2); Platelet Count 248 X 10*3/uL (140-440); RBC 4.78 X 10*6/uL (4.40-5.60); RDW 14.3 % (11.5-14.5)
[2021-04-20 11:43] LABS: Basophils # (A) 0.07 X 10*3/uL (0.00-0.10); Basophils % (A) 0.3 %; Eosinophils # (A) 0.07 X 10*3/uL (0.04-0.35); Eosinophils % (A) 0.3 %; Lymphocytes # (A) 2.18 X 10*3/uL (0.90-5.00); Lymphocytes % (A) 10.8 %; Monocytes # (A) 1.55 X 10*3/uL (0.20-1.00); Monocytes % (A) 7.7 %; Neutrophils # (A) 16.22 X 10*3/uL (1.80-7.70); Neutrophils % (A) 80.4 %
[2021-04-20 11:56] LABS: African American GFR (CKD) 88.3 (60.0-200.0); Albumin 3.9 g/dL (3.8-4.9); Albumin/Globulin Ratio 1.33 (1.60-3.17); Anion Gap 14.5 mmol/L (4.00-12.00); BUN/Creat Ratio 14.19 Ratio (12.00-20.00); Blood Urea Nitrogen 12.9 mg/dL (9.0-27.0); Globulin 2.9 g/dL (1.6-3.3); Non-African American GFR(CKD) 76.1 (60.0-200.0); Potassium 3.6 mmol/L (3.5-5.5); Total Bilirubin 2.2 mg/dL (0.30-1.20); Total Protein 6.8 g/dL (6.2-8.2)
[2021-04-20] MEDS ORDERED: PIPERACILLIN-TAZOBACTAM 3.375 GM in SODIUM CHLORIDE 0.9% 100 ML IVPB SCH (12:05)
--- NOTE | 2021-04-20 13:42 | P.HPIM ---
History of Present Illness H&P Date: 04/20/21 Chief Complaint: Abdominal pain History of presenting complaint: This is a pleasant 85 year old patient of Dr. Phillips. Chronic stable medical conditions include diabetes, hypertension, osteoarthritis, hyperlipidemia, hypothyroid, BPH chronic back pain. Lives with his . Patient is very active for his age. Walks 2 or 3 blocks everyday. Does water aerobics and plays golf. Patient does deny started having abdominal pain and felt a bit better on Wednesday. Did have some nausea vomiting. Pain came back again. Which was in the upper abdomen. No fever no chills. Otherwise appetite has been good. Ultrasound did show cholecystitis. Patient denies any cardiac history. Review of systems: GEN.: Tired EYES: None HEENT: Decreased hearing NECK: None RESPIRATORY: None CARDIOVASCULAR: None GASTROINTESTINAL: As above GENITOURINARY: None MUSCULOSKELETAL: Joint pains LYMPHATICS: None HEMATOLOGICAL: None PSYCHIATRY: None NEUROLOGICAL: None Past medical history to include: Diabetes mellitus, heart of hearing, hypertension, hyperlipidemia, osteoarthritis, BPH, hypothyroid, left neck mass for workup, colon polyps, low back pain, Social history: . Has been using a cane since August 2014. Does drive a car. No smoking. Occasional cigar. Stopped in 1979. No alcohol. Family history: COPD Physical examination: VITAL SIGNS: 97.9, 71, 16, 121/77, 92% room air GENERAL: BMI 27, sitting up, comfortable,. EYES: Pupils equal. Conjunctiva normal. HEENT: External appearance of nose and ears normal, oral cavity grossly normal. NECK: JVD not raised; masses not palpable. HEART: First and second heart sounds are normal; no edema. LUNGS: Respiratory rate normal; clear to auscultation. ABDOMEN: Soft, right upper quadrant tenderness, no guarding rigidity, liver spleen not palpable, no masses palpable. PSYCH: Alert and oriented x3; mood and affect normal. MUSCULAR skeletal: Evidence of OA NEUROLOGICAL: Cranial nerves grossly intact; no facial asymmetry, power and sensation grossly intact. LYMPHATICS: No lymph nodes palpable in the axilla and neck INVESTIGATIONS, reviewed in the clinical context: April 20: WBC 20.2 hemoglobin 14.6 platelets 248 potassium 3.6 creatinine 0.9 Admission labs: UA negative Coronavirus [PCR]: Not detected Sodium 1:30 WBC 25.1 Chest x-ray film personally reviewed by me-borderline currently. Some chronic changes. EKG tracing personally reviewed by me-normal sinus rhythm. Right bundle-branch block. Rate 69 Computed tomography scan of the abdomen pelvis with contrast: Gallbladder is mildly distended and multiple gallstones. One is mildly taken that is pericholecystic inflammation. Assessment and plan: -Acute cholecystitis with symptoms coming on 3 days ago. Underlying gallstones. IV Zosyn. Surgery consulted. -Diabetes mellitus type 2, on oral hypoglycemic Hold Glucophage. Follow Accu-Cheks -Hard of hearing -Hyperlipidemia Pravastatin 40 mg daily at bedtime -Essential hypertension Zestril 2.5 mg daily -Primary osteoarthritis multiplebilateral Pain medications as needed -BPH Follow clinically Care was discussed with the patient. IV Zosyn. IV fluids. Subcu heparin. Medically stable to proceed for surgery. Cardiovascular perioperative risk assessment: Patient is elderly with some chronic stable medical conditions. Patient has no active cardiac symptoms and no cardiac history. Patient is very active walking 2-3 blocks and is moderate aerobics. Patient is a higher risk for cardiovascular complications with no medical contact indications to proceed for surgery. This was discussed with the patient and conveyed to Dr. Garza. Past Medical History Past Medical History: Diabetes Mellitus, Hearing Disorder / Deafness, Hyp erlipidemia, Hypertension, Osteoarthritis (OA), Prostate Disorder, Thyroid Disorder Additional Past Medical History / Comment(s): 01/02/15 PT admitted to floor s/p total L knee. Other HX: Bradycardia, diet control diabetic, L neck mass which needs to be bx soon, enlarged prostate, hypothyroid, colon polyp, cataracts bilaterally, pain magangement consult for back pain History of Any Multi-Drug Resistant Organisms: None Reported Past Surgical History: Adenoidectomy, Appendectomy, Joint Replacement, Orthopedic Surgery, Tonsillectomy Additional Past Surgical History / Comment(s): 01/02/15 Total L knee arthroplasty, colonoscopy with polypectomy-benign, KNEE ARTHROSCOPIC LEFT X2, L knee injections, hemorrhoidectomy, PAIN CLINIC INJECTIONS Past Anesthesia/Blood Transfusion Reactions: No Reported Reaction Past Psychological History: No Psychological Hx Reported Smoking Status: Never smoker Past Alcohol Use History: None Reported Past Drug Use History: None Reported - Past Family History Father Family Medical History: COPD Additional Family Medical History / Comment(s): Father was a smoker. Brother(s) Family Medical History: Cancer Additional Family Medical History / Comment(s): colon Sister(s) Family Medical History: Cancer Additional Family Medical History / Comment(s): colon Mother Family Medical History: Cancer Additional Family Medical History / Comment(s): colon-had colostomy. at 82yrs. Medications and Allergies Home Medications Medication Instructions Recorded Confirmed Type Cholecalciferol [Vitamin D3 (25 50 mcg PO DAILY 03/21/14 04/19/21 History Mcg = 1000 Iu)] Pravastatin Sodium 40 mg PO HS 03/21/14 04/19/21 History Potassium Chloride [Klor-Con 20] 20 meq PO HS 02/20/15 04/19/21 History Potassium Chloride [Klor-Con 20] 40 meq PO DAILY 02/20/15 04/19/21 History metFORMIN HCL [Glucophage] 500 mg PO AC-BID 12/18/15 04/19/21 History Aspirin EC [Ecotrin Low Dose] 81 mg PO DAILY 04/19/21 04/19/21 History Atenolol/Chlorthalidone 1 tab PO DAILY 04/19/21 04/19/21 History [Atenolol/Chlorthalidone 100-25] Melatonin [Melatonin Disolving 10 mg PO HS 04/19/21 04/19/21 History Tablet] Vitamin C/Biotin [Hair, Skin and 1 tab PO DAILY 04/19/21 04/19/21 History Nails Chew] lisinopriL [Zestril] 2.5 mg PO DAILY 04/19/21 04/19/21 History Allergies Allergy/AdvReac Type Severity Reaction Status Date / Time No Known Allergies Allergy Verified 04/19/21 13:34 Physical Exam Vitals: Vital Signs Temp Pulse Pulse Resp BP BP Pulse Ox 04/20/21 08:00 97.9 F 71 16 121/77 92 L 04/20/21 02:03 98.8 F 89 16 113/72 91 L 04/19/21 19:30 98.6 F 81 18 115/70 91 L 04/19/21 18:17 98.3 F 73 17 123/79 96 04/19/21 14:22 82 18 111/59 100 04/19/21 12:34 70 18 111/59 95 Intake and Output 04/19/21 04/20/21 04/20/21 22:59 06:59 14:59 Intake Total 360 Balance 360 Intake: Oral 360 Other: Voiding Method Toilet Toilet Urinal Urinal # Voids 2 Results CBC & Chem 7: 04/20/21 07:05 04/20/21 07:05 Labs: Abnormal Lab Results - Last 24 Hours (Table) 04/20/21 04/20/21 Range/Units 07:05 07:05 WBC 20.20 H (4.50-10.00) X 10*3/uL MPV 9.4 L (9.5-12.2) fL Immature Gran # 0.11 H (0.00-0.04) X 10*3/uL Neutrophils # 16.22 H (1.80-7.70) X 10*3/uL Monocytes # 1.55 H (0.20-1.00) X 10*3/uL Sodium 134 L (135-145) mmol/L Carbon Dioxide 21.0 L (21.6-31.8) mmol/L Anion Gap 14.50 H (4.00-12.00) mmol/L Total Bilirubin 2.20 H (0.30-1.20) mg/dL Albumin/Globulin Ratio 1.33 L (1.60-3.17) g/dL Thrombosis Risk Factor Assmnt - Choose All That Apply Any of the Below Risk Factors Present?: No
[2021-04-20] MEDS ORDERED: MELATONIN 10 MG PO SCH (21:00)
[2021-04-20] MEDS: PRAVASTATIN SODIUM 40 MG TAB PO SCH (21:22)
[2021-04-20] MEDS: MELATONIN 5 MG TABLET PO SCH (21:22)
[2021-04-21] MEDS: PIPERACILLIN-TAZOBACTAM 3.375 GM in SODIUM CHLORIDE 0.9% 100 ML IVPB SCH ×3 (01:10→21:35)
[2021-04-21] MEDS: SODIUM CHLORIDE 0.9% 1,000 ML IV SCH (05:31)
[2021-04-21 07:19] LABS: Basophils # (A) 0.1 k/uL (0-0.2); Basophils % (A) 0 %; Eosinophils # (A) 0.1 k/uL (0-0.7); Eosinophils % (A) 1 %; HCT 47.2 % (39.0-53.0); HGB 15.8 gm/dL (13.0-17.5); Lymphocytes # (A) 2.4 k/uL (1.0-4.8); Lymphocytes % (A) 10 %; MCH 30.4 pg (25.0-35.0); MCHC 33.4 g/dL (31.0-37.0); MCV 91.1 fL (80.0-100.0); Mean Platelet Volume 6.9; Monocytes # (A) 1.1 k/uL (0-1.0); Monocytes % (A) 5 %; Neutrophils # (A) 18.6 k/uL (1.3-7.7); Neutrophils % (A) 83 %; Platelet Count 260 k/uL (150-450); RBC 5.18 m/uL (4.30-5.90); RDW 13.5 % (11.5-15.5); WBC 22.5 k/uL (3.8-10.6)
[2021-04-21 07:46] LABS: ALT 17 U/L (4-49); AST 28 U/L (17-59); African American GFR (CKD) >90 (>60 ml/min/1.73 sqM); Albumin 3.7 g/dL (3.5-5.0); Alkaline Phosphatase 87 U/L (38-126); Anion Gap 12 mmol/L; Blood Urea Nitrogen 9 mg/dL (9-20); Calcium 9.1 mg/dL (8.4-10.2); Carbon Dioxide 24 mmol/L (22-30); Chloride 98 mmol/L (98-107); Globulin 3.6 g/dL; Glucose 129 mg/dL (74-99); Non-African American GFR(CKD) 83 (>60 ml/min/1.73 sqM); Potassium 3.2 mmol/L (3.5-5.1); Sodium 134 mmol/L (137-145); Total Bilirubin 3.7 mg/dL (0.2-1.3); Total Protein 7.3 g/dL (6.3-8.2)
[2021-04-21] MEDS ORDERED: POTASSIUM CHLORIDE 20 MEQ in WATER FOR INJECTION 1 100ML.BAG IVPB ONE ×2 (10:00→14:00)
--- NOTE | 2021-04-21 11:05 | CDI ---
Documentation Clarification Form Date: 04/21/2021 10:51:21 AM From: Estella Beebe RN CCDS Admit Date: 04/19/2021 01:45:00 PM Patient Name: Mauro Chong Visit Number: [id number] Discharge Date: ATTENTION: The Clinical Documentation Specialists (CDI) and [facility] Coding Staff appreciate your assistance in clarifying documentation. Please respond to the clarification below the line at the bottom and electronically sign. The CDI & [facility] Coding staff will review the response and follow-up if needed. Please note: Queries are made part of the Legal Health Record. If you have any questions, please contact the author of this message via ITS. Dr. Harlan Broussard Sepsis is documented Surgical consult, 04/19 and Surgical progress note 04/20, but is not noted in subsequent documentation. Clarification is requested. History/Risk Factors: 85-year-old male presents to the ED for right lower quadrant pain for two days pain is 8/10. Medical History: Bradycardia, DM diet controlled, HTN and HLD. Clinical Indicators: VSS 04/19: B/P 146/90, HR 82, Temp 98.2 Oral F, RR 18, 96% room air Labs 04/19: Wbc 25.1, Neutrophils 21.4, CT ABD Pelvis 04/19: Findings consistent with acute cholecystitis with cholelithiasis. Treatment: 04/19 Piperacillin 3.375gm IVPB X1, 04/21 to current Piperacillin 3.375 IVPB Q8HR, 04/19 d/c 04/19 0.9ns 130cchr, 04/19 to current 0.9NS 75cchr. Please clarify if the Sepsis is: [ ] Sepsis confirmed, remains under treatment [ ] Sepsis confirmed, resolved [ ] Sepsis ruled out [ ] Other condition, please specify [ ] Unable to determine sepsis ruled out (Template Last Revised: September 2020) MTDD
--- NOTE | 2021-04-21 11:28 | NM ---
Nuclear medicine hepatobiliary scan. HISTORY: Pain. DOSAGE: The patient received 5 mCi of Technetium 99m Choletec. FINDINGS: There is normal hepatic extraction. The gallbladder is not seen by 240 minutes. There is biliary to bowel clearance by 20 minutes. IMPRESSION: 1. All bladder is not seen at 240 minutes correlate for cholecystitis.
[2021-04-21] MEDS: HEPARIN SODIUM,PORCINE/PF 5,000 UNIT/0.5 ML SYRINGE SQ SCH ×2 (11:38→21:36)
[2021-04-21] MEDS: atenoloL 50 MG TAB PO SCH (11:38)
--- NOTE | 2021-04-21 15:06 | P.PN ---
Progress Note - Text Progress Note Date: 04/21/21 Chief Complaint: Abdominal pain History of presenting complaint: This is a pleasant 85 [address] patient of Dr. Phillips. Chronic stable medical conditions include diabetes, hypertension, osteoarthritis, hyperlipidemia, hypothyroid, BPH chronic back pain. Lives with his . Patient is very active for his age. Walks 2 or 3 blocks everyday. Does water aerobics and plays golf. Patient does deny started having abdominal pain and felt a bit better on Wednesday. Did have some nausea vomiting. Pain came back again. Which was in the upper abdomen. No fever no chills. Otherwise appetite has been good. Ultrasound did show cholecystitis. Patient denies any cardiac history. 04/21/2021: Sitting up in a chair. Abdominal pain present. No nausea vomiting. IV Zosyn. IV fluids. Has been placed on low-fat diet by surgery. Surgery planned for tomorrow Review of systems: Was done for constitutional, cardiovascular, GI, pulmonary. relevant finding as above Active Medications Atenolol (Atenolol 50 Mg Tab) 100 mg PO DAILY [facility] Last Admin: 04/21/21 11:38 Dose: 100 mg Documented by: Heparin Sodium (Porcine) (Heparin Sodium,Porcine/Pf 5,000 Unit/0.5 Ml Syringe) 5,000 unit SQ Q12HR [facility] Last Admin: 04/21/21 11:38 Dose: Not Given Documented by: Sodium Chloride (Saline 0.9%) 1,000 mls @ 75 mls/hr IV .[id number] [facility] Last Admin: 04/21/21 05:31 Dose: Not Given Documented by: Piperacillin Sod/Tazobactam (Sod 3.375 gm/ Sodium Chloride) 100 mls @ 200 mls/hr IVPB Q8H [facility] Last Admin: 04/21/21 11:39 Dose: 200 mls/hr Documented by: Potassium Chloride 20 meq/ IV (Solution) 100 mls @ 50 mls/hr IVPB ONCE ONE Stop: 04/21/21 15:59 Lisinopril (Lisinopril 2.5 Mg Tab) 2.5 mg PO DAILY [facility] Last Admin: 04/21/21 11:38 Dose: 2.5 mg Documented by: Melatonin (Melatonin 5 Mg Tablet) 10 mg PO HS [facility] Last Admin: 04/20/21 21:22 Dose: 10 mg Documented by: Naloxone HCl (Naloxone 0.4 Mg/Ml 1 Ml Vial) 0.2 mg IV Q2M PRN PRN Reason: Opioid Reversal Pravastatin Sodium (Pravastatin Sodium 40 Mg Tab) 40 mg PO HS [facility] Last Admin: 04/20/21 21:22 Dose: 40 mg Documented by: Past medical history to include: Diabetes mellitus, heart of hearing, hypertension, hyperlipidemia, osteoarthritis, BPH, hypothyroid, left neck mass for workup, colon polyps, low back pain, Social history: . Has been using a cane since August 2014. Does drive a car. No smoking. Occasional cigar. Stopped in 1979. No alcohol. Family history: COPD Physical examination: VITAL SIGNS: 98.2, 101, 18, 10 7 x 60, 92% room air GENERAL: Sitting up in a chair, but uncomfortable,. EYES: Pupils equal. Conjunctiva normal. HEENT: External appearance of nose and ears normal, oral cavity grossly normal. NECK: JVD not raised; masses not palpable. HEART: First and second heart sounds are normal; no edema. LUNGS: Respiratory rate normal; clear to auscultation. ABDOMEN: Soft, right upper quadrant tenderness, no guarding rigidity, liver spleen not palpable, no masses palpable. PSYCH: Alert and oriented x3; mood and affect normal. MUSCULAR skeletal: Evidence of OA INVESTIGATIONS, reviewed in the clinical context: April 21: WBC 22.5 hemoglobin 15.8 potassium 3.2 creatinine 0.76 April 20: WBC 20.2 hemoglobin 14.6 platelets 248 potassium 3.6 creatinine 0.9 Admission labs: UA negative Coronavirus [PCR]: Not detected Sodium 1:30 WBC 25.1 Chest x-ray film personally reviewed by me-borderline currently. Some chronic changes. EKG tracing personally reviewed by me-normal sinus rhythm. Right bundle-branch block. Rate 69 Computed tomography scan of the abdomen pelvis with contrast: Gallbladder is mildly distended and multiple gallstones. One is mildly taken that is pericholecystic inflammation. Assessment and plan: -Acute cholecystitis with symptoms coming on 3 days ago. Underlying gallstones: Not improving. IV Zosyn. Pending surgery -Diabetes mellitus type 2, on oral hypoglycemic Hold Glucophage. Follow Accu-Cheks -Hard of hearing -Hyperlipidemia Pravastatin 40 mg daily at bedtime -Essential hypertension Zestril 2.5 mg daily -Primary osteoarthritis multiplebilateral Pain medications as needed -BPH Follow clinically -Hypokalemia Replace potassium Continue IV Zosyn. Change IV fluids to LR.. Surgeries being arranged for tomorrow. Replace potassium Cardiovascular perioperative risk assessment: Patient is elderly with some chronic stable medical conditions. Patient has no active cardiac symptoms and no cardiac history. Patient is very active walking 2-3 blocks and is moderate aerobics. Patient is a higher risk for cardiovascular complications with no medical contact indications to proceed for surgery. This was discussed with the patient and conveyed to Dr. Garza.
[2021-04-21] MEDS: LACTATED RINGERS 1,000 ML IV SCH (16:54)
--- NOTE | 2021-04-21 17:07 | P.PN ---
Subjective Progress Note Date: 04/21/21 CHIEF COMPLAINT: Right upper quadrant abdominal pain, cholecystitis. HISTORY OF PRESENT ILLNESS: The patient is a 85 year old male who presented to the emergency room with CT findings of acute cholecystitis and leukocytosis WBC over 20k. Family is at bedside. He had an ECHO and nuclear study on his gal lbladder today. He is tolerating low fat diet. REVIEW OF ORGAN SYSTEMS: Denies active chest pain. No shortness of breath. No nausea or vomiting. No fevers or chills. PHYSICAL EXAM: VITALS: Reviewed CONSTITUTIONAL: Well developed and in no acute distress. EYES: Conjuctivae without sclera icterus. Extraocular movements grossly intact. HEAD, EARS, NOSE, THROAT: Moist buccal mucosa. Head is atraumatic, normocephalic. Hears conversational speech. No nasal drainage. Wears glasses. RESPIRATORY: Non-labored respirations and equal bilateral excursions. CARDIOVASCULAR: Palpable 2+ radial pulses. ABDOMEN: Mild tenderness right upper quadrant. No peritonitis. MUSCULOSKELETAL: Nail and fingers with good capillary refill. SKIN: Warm and well perfused with good skin turgor. NEUROLOGIC: Cranial nerves II through XII grossly intact. Sensation upper and extremities intact. No focal or lateralizing signs. PSYCH: Appropriate affect. Alert and oriented to person, place and time. Displays appropriate insight. CLINCAL LABS: Reviewed. WBC elevated over 25,000 down to 22,000. Hgb A1c 6.0%. LFTs are normal. STUDIES: HIDA scan independently reviewed by me demonstrates no visualization of the gallbladder after 3 hrs. This is my independent interpretation. ASSESSMENT: 1. Acute cholecystitis with leukocytosis and sepsis 2. Left inguinal hernia with large bowel 3. Diabetes type 2, [id number] 4. Hypertensive heart disease 5. 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 Still pending final report from ECHO 2. Robotic cholecystectomy reviewed where he is elevated risk for complications with leukocytosis. Objective - Vital Signs Vital signs: Vital Signs Temp 98.2 F 04/21/21 14:50 Pulse 101 H 04/21/21 14:50 Resp 18 04/21/21 14:50 BP 107/60 04/21/21 14:50 Pulse Ox 92 L 04/21/21 14:50 Intake & Output 04/20/21 04/21/21 04/21/21 18:59 06:59 18:59 Intake Total 550 Balance 550 Intake: Intake, IV Titration 100 Amount Piperacillin-Tazobactam 3 100 .375 gm In Sodium Chloride 0.9% 100 ml @ 200 mls/hr IVPB Q8HR [facility] Rx#:[id number] Oral 450 Other: Voiding Method Toilet Urinal - Labs CBC & Chem 7: 04/21/21 06:56 04/21/21 06:56 Labs: Abnormal Lab Results - Last 24 Hours (Table) 04/21/21 04/21/21 Range/Units 06:56 06:56 WBC 22.5 H (3.8-10.6) k/uL Neutrophils # 18.6 H (1.3-7.7) k/uL Monocytes # 1.1 H (0-1.0) k/uL Sodium 134 L (137-145) mmol/L Potassium 3.2 L (3.5-5.1) mmol/L Glucose 129 H (74-99) mg/dL Total Bilirubin 3.7 H (0.2-1.3) mg/dL Assessment and Plan (1) Sepsis Current Visit: Yes Status: Acute Code(s): A41.9 - SEPSIS, UNSPECIFIED ORGANISM SNOMED Code(s): 47764823 (2) Acute cholecystitis Current Visit: Yes Status: Acute Code(s): K81.0 - ACUTE CHOLECYSTITIS SNOMED Code(s): 44063169 (3) Cholelithiasis Current Visit: Yes Status: Acute Code(s): K80.20 - CALCULUS OF GALLBLADDER W/O CHOLECYSTITIS W/O OBSTRUCTION SNOMED Code(s): 272851427 (4) Leukocytosis Current Visit: Yes Status: Acute Code(s): D72.829 - ELEVATED WHITE BLOOD CELL COUNT, UNSPECIFIED SNOMED Code(s): 898923053 (5) AV block, 1st degree Current Visit: Yes Status: Acute Code(s): I44.0 - ATRIOVENTRICULAR BLOCK, FIRST DEGREE SNOMED Code(s): 713709651 (6) Right bundle branch block (RBBB) Current Visit: Yes Status: Acute Code(s): I45.10 - UNSPECIFIED RIGHT BUNDLE- BRANCH BLOCK SNOMED Code(s): 38154365
--- NOTE | 2021-04-21 17:58 | ECHOF ---
Referral Reason:LV function MEASUREMENTS -------- HEIGHT: 175.3 cm WEIGHT: 83.0 kg BP: 121/77 IVSd: 1.5 cm (0.6 - 1.1) LVIDd: 3.9 cm (3.9 - 5.3) LVPWd: 1.5 cm (0.6 - 1.1) EDV(Teich): 65 ml IVSs: 1.9 cm LVIDs: 2.2 cm LVPWs: 1.9 cm %IVS Thck: 27 % ESV(Teich): 15 ml EF(Teich): 77 % %FS: 45 % SV(Teich): 50 ml RVIDd: 3.8 cm (< 3.3) RA Diam: 3.9 cm LALs A4C: 5.7 cm LAAs A4C: 15.7 cm LAESV A-L A4C: 37 ml LAESV MOD A4C: 34 ml LALs A2C: 5.8 cm LAAs A2C: 21.1 cm LAESV A-L A2C: 64 ml LAESV MOD A2C: 61 ml LAESV(A-L): 49 ml LAESV Index (A-L): 24.70 ml/m Ao Diam: 4.0 cm (2.0 - 3.7) AV Cusp: 1.9 cm (1.5 - 2.6) EPSS: 0.9 cm MV Vmax: 1.46 m/s MV Vmean: 0.80 m/s MV maxP.47 mmHg MV meanP.37 mmHg MV VTI: 25.6 cm AV Vmax: 1.17 m/s AV maxP.47 mmHg TR Vmax: 3.15 m/s TR maxP.61 mmHg RAP: 5.00 mmHg RVSP: 44.61 mmHg MV EF SLOPE: 127.82 mm/s (70 - 150) MV EXCURSION: 16.22 mm (> 18.000) FINDINGS -------- This was a technically adequate study. The left ventricular size is normal. There is moderate concentric left ventricular hypertrophy. O verall left ventricular systolic function is normal with, an EF between 55 - 60 %. The right ventricle is mild to moderately enlarged. Normal LA size by volume 22+/-6 ml/m2. The right atrial size is normal. Interatrial and interventricular septum intact. There is no evidence of aortic regurgitation. There is no evidence of aortic stenosis. Mild mitral regurgitation is present. Ytkq-uj-wvjomqdx tricuspid regurgitation present. There is mild to moderate pulmonary hypertension. The right ventricular systolic pressure, as measured by Doppler, is 44.61mmHg. There is no pulmonic regurgitation present. The aortic root size is normal. IVC Not well visulized. There is no pericardial effusion. CONCLUSIONS -------- 1. The left ventricular size is normal. 2. There is moderate concentric left ventricular hypertrophy. 3. Overall left ventricular systolic function is normal with, an EF between 55 - 60 %. 4. The right ventricle is mild to moderately enlarged. 5. Mild mitral regurgitation is present. 6. Gioh-rb-owwpeuso tricuspid regurgitation present. 7. There is mild to moderate pulmonary hypertension. 8. The right ventricular systolic pressure, as measured by Doppler, is 44.61mmHg. JUNK DEALER: Simin Langford RDCS
[2021-04-21] MEDS ORDERED: HYDROmorphone 1 MG/ML 1 ML SYRINGE IVP PRN (19:46)
[2021-04-21] MEDS: ACETAMINOPHEN IV (For NPO) 1,000 MG in EMPTY BAG 1 BAG IVPB SCH (21:33)
[2021-04-21] MEDS: MELATONIN 5 MG TABLET PO SCH (21:35)
[2021-04-21] MEDS: PRAVASTATIN SODIUM 40 MG TAB PO SCH (21:35)
[2021-04-22] MEDS: ACETAMINOPHEN IV (For NPO) 1,000 MG in EMPTY BAG 1 BAG IVPB SCH ×4 (01:17→18:07)
[2021-04-22] MEDS: PIPERACILLIN-TAZOBACTAM 3.375 GM in SODIUM CHLORIDE 0.9% 100 ML IVPB SCH ×3 (04:48→18:49)
[2021-04-22] MEDS: LACTATED RINGERS 1,000 ML IV SCH ×3 (06:10→18:35)
[2021-04-22 06:22] LABS: Basophils % (A) 0 %; Eosinophils # (A) 0.2 k/uL (0-0.7); Eosinophils % (A) 1 %; HCT 39.7 % (39.0-53.0); HGB 13.2 gm/dL (13.0-17.5); Lymphocytes # (A) 1.9 k/uL (1.0-4.8); Lymphocytes % (A) 11 %; MCH 30.8 pg (25.0-35.0); MCHC 33.2 g/dL (31.0-37.0); MCV 92.8 fL (80.0-100.0); Mean Platelet Volume 7.1; Monocytes # (A) 0.9 k/uL (0-1.0); Monocytes % (A) 6 %; Neutrophils # (A) 13.1 k/uL (1.3-7.7); Neutrophils % (A) 81 %; Platelet Count 257 k/uL (150-450); RBC 4.27 m/uL (4.30-5.90); RDW 13.5 % (11.5-15.5); WBC 16.2 k/uL (3.8-10.6)
[2021-04-22 06:37] LABS: African American GFR (CKD) >90 (>60 ml/min/1.73 sqM); Anion Gap 8 mmol/L; Blood Urea Nitrogen 13 mg/dL (9-20); Calcium 8.1 mg/dL (8.4-10.2); Carbon Dioxide 25 mmol/L (22-30); Chloride 101 mmol/L (98-107); Glucose 116 mg/dL (74-99); Non-African American GFR(CKD) 79 (>60 ml/min/1.73 sqM); Potassium 3.5 mmol/L (3.5-5.1); Sodium 134 mmol/L (137-145)
[2021-04-22] MEDS: HEPARIN SODIUM,PORCINE/PF 5,000 UNIT/0.5 ML SYRINGE SQ SCH ×2 (08:13→21:45)
[2021-04-22] MEDS: atenoloL 50 MG TAB PO SCH (08:14)
--- NOTE | 2021-04-22 09:14 | P.PN ---
Subjective Progress Note Date: 04/22/21 CHIEF COMPLAINT: Right upper quadrant abdominal pain, cholecystitis. HISTORY OF PRESENT ILLNESS: The patient is a 85 year old male who presented with acute cholecystitis and leukocytosis. He has completed his cardiac work-up. Additionally, overnight he had pain moderate 10/10. He is sitting comfortably in the chair at bedside. REVIEW OF ORGAN SYSTEMS: Denies active chest pain. No shortness of breath. No nausea or vomiting. No fevers or chills. PHYSICAL EXAM: VITALS: Reviewed CONSTITUTIONAL: Well developed and in no acute distress. EYES: Conjuctivae without sclera icterus. Extraocular movements grossly intact. HEAD, EARS, NOSE, THROAT: Moist buccal mucosa. Head is atraumatic, normocep halic. Wears glasses. RESPIRATORY: Non-labored respirations and equal bilateral excursions. CARDIOVASCULAR: Palpable 2+ radial pulses. ABDOMEN: Tenderness right upper quadrant. No peritonitis. MUSCULOSKELETAL: Nail and fingers with good capillary refill. SKIN: Warm and well perfused with good skin turgor. NEUROLOGIC: Cranial nerves II through XII grossly intact. No focal or lateralizing signs. PSYCH: Appropriate affect. Alert and oriented to person, place and time. Displays appropriate insight. CLINCAL LABS: Reviewed. WBC elevated over 25,000 down to over 17,000 REPORT: ECHO reviewed with EF over 55%. Mild to moderate pulmonary hypertension. ASSESSMENT: 1. Acute cholecystitis with leukocytosis and sepsis 2. Left inguinal hernia with large bowel 3. Diabetes type 2, mrr-wxyifxk-hhzigjckg 4. Hypertensive heart disease 5. 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 Robotic cholecystectomy reviewed where he is elevated risk for complications including drain placement, injury to the common bile duct and open surgery. 2. All questions reviewed. Objective - Vital Signs Vital signs: Vital Signs Temp 97.5 F L 04/22/21 08:00 Pulse 66 04/22/21 08:00 Resp 20 04/22/21 08:00 BP 116/68 04/22/21 08:00 Pulse Ox 92 L 04/22/21 08:00 Intake & Output 04/21/21 04/22/21 04/22/21 18:59 06:59 18:59 Intake Total 300 Output Total 300 Balance 0 Intake: Oral 300 Output: Urine 300 Other: Voiding Method Toilet # Voids 5 4 # Bowel Movements 0 - Labs CBC & Chem 7: 04/22/21 05:33 04/22/21 05:33 Labs: Abnormal Lab Results - Last 24 Hours (Table) 04/22/21 04/22/21 Range/Units 05:33 05:33 WBC 16.2 H (3.8-10.6) k/uL RBC 4.27 L (4.30-5.90) m/uL Neutrophils # 13.1 H (1.3-7.7) k/uL Sodium 134 L (137-145) mmol/L Glucose 116 H (74-99) mg/dL Calcium 8.1 L (8.4-10.2) mg/dL Assessment and Plan (1) Sepsis Current Visit: Yes Status: Acute Code(s): A41.9 - SEPSIS, UNSPECIFIED ORGANISM SNOMED Code(s): 94839453 (2) Acute cholecystitis Current Visit: Yes Status: Acute Code(s): K81.0 - ACUTE CHOLECYSTITIS SNOMED Code(s): 23813008 (3) Cholelithiasis Current Visit: Yes Status: Acute Code(s): K80.20 - CALCULUS OF GALLBLADDER W/O CHOLECYSTITIS W/O OBSTRUCTION SNOMED Code(s): 797624332 (4) Leukocytosis Current Visit: Yes Status: Acute Code(s): D72.829 - ELEVATED WHITE BLOOD CELL COUNT, UNSPECIFIED SNOMED Code(s): 572393086 (5) AV block, 1st degree Current Visit: Yes Status: Acute Code(s): I44.0 - ATRIOVENTRICULAR BLOCK, FIRST DEGREE SNOMED Code(s): 600870119 (6) Right bundle branch block (RBBB) Current Visit: Yes Status: Acute Code(s): I45.10 - UNSPECIFIED RIGHT BUNDLE- BRANCH BLOCK SNOMED Code(s): 79776754
[2021-04-22] MEDS ORDERED: LACTATED RINGERS 1,000 ML IV ONE ×2 (11:25→15:18)
[2021-04-22] MEDS ORDERED: ONDANSETRON 4 MG/2 ML VIAL ONE (11:29)
[2021-04-22] MEDS ORDERED: ONDANSETRON 4 MG/2 ML VIAL IVP ONE ×2 (11:31→18:04)
[2021-04-22 11:34] LABS: Glucose,Whole Blood 104 mg/dL (75-99)
[2021-04-22] MEDS ORDERED: HEPARIN SODIUM,PORCINE 5,000 UNIT/ML 1 ML VIAL SQ ONE (11:38)
[2021-04-22] MEDS ORDERED: PHENYLEPHRINE-0.9% NACL SYG 1,000 MCG/10 ML SYRINGE ONE (12:56)
[2021-04-22] MEDS ORDERED: GLYCOPYRROLATE 0.2 MG/ML 2 ML VIAL ONE (12:56)
[2021-04-22] MEDS ORDERED: HYDROmorphone (PF) 1 MG/ML ONE (12:56)
[2021-04-22] MEDS ORDERED: INDOCYANINE GREEN 25 MG VIAL IV ONE (12:56)
[2021-04-22] MEDS ORDERED: fentaNYL (PF) 50 MCG/ML 2 ML AMP ONE (12:56)
[2021-04-22] MEDS ORDERED: PROPOFOL 10 MG/ML 20 ML VIAL IV ONE (12:56)
[2021-04-22] MEDS ORDERED: ceFAZolin 1,000 MG VIAL ONE (12:56)
[2021-04-22] MEDS ORDERED: LIDOCAINE 1% INJ 10MG/ML (20 ML MDV) ONE (12:56)
[2021-04-22] MEDS ORDERED: SUCCINYLCHOLINE CHLORIDE 100 MG/5 ML SYR IV ONE (12:56)
[2021-04-22] MEDS ORDERED: SODIUM CHLORIDE 0.9% 100 ML BAG ONE (12:56)
[2021-04-22] MEDS ORDERED: NEOSTIGMINE 1 MG/ML 10 ML VIAL ONE (12:56)
[2021-04-22] MEDS ORDERED: ROCURONIUM 10 MG/ML (5 ML VIAL) IV ONE (12:56)
[2021-04-22] MEDS ORDERED: LIDOCAINE 1%-EPI 1:100,000 20 ML VIAL SQ ONE (13:46)
[2021-04-22] MEDS ORDERED: PIPERACILLIN-TAZOBACTAM 3.375 GM in SODIUM CHLORIDE 0.9% 100 ML IVPB SCH (16:00)
--- NOTE | 2021-04-22 16:15 | P.PN ---
Progress Note - Text Progress Note Date: 04/22/21 Chief Complaint: Abdominal pain History of presenting complaint: This is a pleasant 85 [address] old patient of Dr. Phillips. Chronic stable medical conditions include diabetes, hypertension, osteoarthritis, hyperlipidemia, hypothyroid, BPH chronic back pain. Lives with his . Patient is very active for his age. Walks 2 or 3 blocks everyday. Does water aerobics and plays golf. Patient does deny started having abdominal pain and felt a bit better on Wednesday. Did have some nausea vomiting. Pain came back again. Which was in the upper abdomen. No fever no chills. Otherwise appetite has been good. Ultrasound did show cholecystitis. Patient denies any cardiac history. 04/21/2021: Sitting up in a chair. Abdominal pain present. No nausea vomiting. IV Zosyn. IV fluids. Has been placed on low-fat diet by surgery. Surgery planned for tomorrow 04/22/2021: Sitting up in a chair. Grandson visiting. Pending surgery this afternoon. No new issues. Pain present. Review of systems: Was done for constitutional, cardiovascular, GI, pulmonary. relevant finding as above Active Medications Atenolol (Atenolol 50 Mg Tab) 100 mg PO DAILY [facility] Last Admin: 04/22/21 08:14 Dose: 100 mg Documented by: Heparin Sodium (Porcine) (Heparin Sodium,Porcine/Pf 5,000 Unit/0.5 Ml Syringe) 5,000 unit SQ Q12HR [facility] Last Admin: 04/22/21 08:13 Dose: Not Given Documented by: Hydromorphone HCl (Hydromorphone 1 Mg/Ml 1 Ml Syringe) 1 mg IVP Q3HR PRN PRN Reason: Moderate to Severe Pain Lactated Ringer's (Lactated Ringers) 1,000 mls @ 75 mls/hr IV .[id number] [facility] Last Admin: 04/22/21 06:10 Dose: 75 mls/hr Documented by: Piperacillin Sod/Tazobactam (Sod 3.375 gm/ Sodium Chloride) 100 mls @ 200 mls/hr IVPB Q8HR [facility] Lisinopril (Lisinopril 2.5 Mg Tab) 2.5 mg PO DAILY [facility] Last Admin: 04/22/21 08:14 Dose: 2.5 mg Documented by: Melatonin (Melatonin 5 Mg Tablet) 10 mg PO HS [facility] Last Admin: 04/21/21 21:35 Dose: 10 mg Documented by: Naloxone HCl (Naloxone 0.4 Mg/Ml 1 Ml Vial) 0.2 mg IV Q2M PRN PRN Reason: Opioid Reversal Pravastatin Sodium (Pravastatin Sodium 40 Mg Tab) [address] [facility] Last Admin: 04/21/21 21:35 Dose: 40 mg Documented by: Past medical history to include: Diabetes mellitus, heart of hearing, hypertension, hyperlipidemia, osteoarthritis, BPH, hypothyroid, left neck mass for workup, colon polyps, low back pain, Social history: . Has been using a cane since August 2014. Does drive a car. No smoking. Occasional cigar. Stopped in 1979. No alcohol. Family history: COPD Physical examination: VITAL SIGNS: 97.9, 71, 18, 155/75, 96% room air GENERAL: Sitting up in a chair, awake EYES: Pupils equal. Conjunctiva normal. HEENT: External appearance of nose and ears normal, oral cavity grossly normal. NECK: JVD not raised; masses not palpable. HEART: First and second heart sounds are normal; no edema. LUNGS: Respiratory rate normal; clear to auscultation. ABDOMEN: Soft, right upper quadrant tenderness, no guarding rigidity, liver spleen not palpable, no masses palpable. PSYCH: Alert and oriented x3; mood and affect normal. MUSCULAR skeletal: Evidence of OA INVESTIGATIONS, reviewed in the clinical context: April 22: WBC 16.2 hemoglobin 13.2 potassium 3.5 creatinine 0.84 April 21: WBC 22.5 hemoglobin 15.8 potassium 3.2 creatinine 0.76 April 20: WBC 20.2 hemoglobin 14.6 platelets 248 potassium 3.6 creatinine 0.9 Admission labs: UA negative Coronavirus [PCR]: Not detected Sodium 1:30 WBC 25.1 Chest x-ray film personally reviewed by me-borderline currently. Some chronic changes. EKG tracing personally reviewed by me-normal sinus rhythm. Right bundle-branch block. Rate 69 Computed tomography scan of the abdomen pelvis with contrast: Gallbladder is mildly distended and multiple gallstones. One is mildly taken that is pericholecystic inflammation. Assessment and plan: -Acute cholecystitis with symptoms coming on 3 days ago. Underlying gallstones: Not improving. IV Zosyn. Pending surgery, this afternoon -Diabetes mellitus type 2, on oral hypoglycemic Hold Glucophage. Follow Accu-Cheks -Hard of hearing -Hyperlipidemia Pravastatin 40 mg daily at bedtime -Essential hypertension Zestril 2.5 mg daily -Primary osteoarthritis multiplebilateral Pain medications as needed -BPH Follow clinically -Hypokalemia Replace potassium IV Zosyn. IV fluids. Pending surgery this afternoon. Discussed with the patient and grandson of the bedside.
[2021-04-22] MEDS ORDERED: ONDANSETRON 4 MG/2 ML VIAL IVP PRN (16:37)
[2021-04-22] MEDS: KETOROLAC 15 MG/ML 1 ML VIAL IVP SCH (17:06)
[2021-04-22] MEDS ORDERED: HYDROmorphone 0.5 MG/0.5 ML SYRINGE IVP PRN (18:04)
[2021-04-22] MEDS: TAMSULOSIN 0.4 MG CAP.ER.24H PO SCH (18:07)
[2021-04-22] MEDS: SIMETHICONE 40 MG/0.6 ML DROPS 2,000 MG/30 ML BOTTLE PO SCH ×2 (18:07→21:44)
[2021-04-22] MEDS: MELATONIN 5 MG TABLET PO SCH (21:44)
[2021-04-22] MEDS: PRAVASTATIN SODIUM 40 MG TAB PO SCH (21:44)
[2021-04-22] MEDS: DOCUSATE 100 MG CAP PO SCH (21:44)
[2021-04-23] MEDS: KETOROLAC 15 MG/ML 1 ML VIAL IVP SCH ×5 (00:22→23:30)
[2021-04-23] MEDS: ACETAMINOPHEN IV (For NPO) 1,000 MG in EMPTY BAG 1 BAG IVPB SCH ×3 (00:23→12:19)
[2021-04-23] MEDS: PIPERACILLIN-TAZOBACTAM 3.375 GM in SODIUM CHLORIDE 0.9% 100 ML IVPB SCH ×3 (02:49→16:45)
[2021-04-23] MEDS: LACTATED RINGERS 1,000 ML IV SCH ×2 (06:12→16:48)
[2021-04-23] MEDS: atenoloL 50 MG TAB PO SCH (08:47)
[2021-04-23] MEDS: DOCUSATE 100 MG CAP PO SCH ×2 (08:48→09:09)
[2021-04-23] MEDS: PANTOPRAZOLE 40 MG/10 ML VIAL IV SCH (08:52)
[2021-04-23] MEDS: HEPARIN SODIUM,PORCINE/PF 5,000 UNIT/0.5 ML SYRINGE SQ SCH ×2 (09:03→22:00)
[2021-04-23 10:13] LABS: Basophils # (A) 0.06 X 10*3/uL (0.00-0.10); Basophils % (A) 0.4 %; Eosinophils # (A) 0.19 X 10*3/uL (0.04-0.35); Eosinophils % (A) 1.3 %; HCT 40.3 % (39.6-50.0); HGB 13.3 g/dL (13.0-17.0); Lymphocytes # (A) 1.69 X 10*3/uL (0.90-5.00); Lymphocytes % (A) 11.3 %; MCH 30.4 pg (27.0-32.0); Mean Platelet Volume 9.1 fL (9.5-12.2); Monocytes # (A) 1.08 X 10*3/uL (0.20-1.00); Monocytes % (A) 7.3 %; Neutrophils # (A) 11.72 X 10*3/uL (1.80-7.70); Neutrophils % (A) 78.7 %; Platelet Count 276 X 10*3/uL (140-440); RBC 4.38 X 10*6/uL (4.40-5.60); RDW 14.3 % (11.5-14.5); WBC 14.89 X 10*3/uL (4.50-10.00)
[2021-04-23] MEDS: SIMETHICONE 40 MG/0.6 ML DROPS 2,000 MG/30 ML BOTTLE PO SCH ×5 (10:57→22:00)
[2021-04-23] MEDS: FUROSEMIDE 10 MG/ML 2 ML VIAL IV SCH (12:18)
[2021-04-23 12:33] LABS: African American GFR (CKD) 89.3 (60.0-200.0); Albumin 3.2 g/dL (3.8-4.9); Albumin/Globulin Ratio 1.14 (1.60-3.17); Anion Gap 14.1 mmol/L (4.00-12.00); BUN/Creat Ratio 14.56 Ratio (12.00-20.00); Blood Urea Nitrogen 13.1 mg/dL (9.0-27.0); Calcium 8.2 mg/dL (8.7-10.3); Carbon Dioxide 23.9 mmol/L (21.6-31.8); Globulin 2.8 g/dL (1.6-3.3); Non-African American GFR(CKD) 77.1 (60.0-200.0); Potassium 3.3 mmol/L (3.5-5.5); Total Bilirubin 0.9 mg/dL (0.30-1.20)
--- NOTE | 2021-04-23 16:37 | P.PN ---
Subjective Progress Note Date: 04/23/21 CHIEF COMPLAINT: Right upper quadrant abdominal pain, cholecystitis. HISTORY OF PRESENT ILLNESS: The patient is a 85 year old male status post cholecystectomy, 04/22/2021 with findings of gangrenous cholecystitis. "I filled great." Family is at bedside. He is tolerating diet. Pain is well-controlled. REVIEW OF ORGAN SYSTEMS: Denies active chest pain. No shortness of breath. No nausea or vomiting. No fevers or chills. PHYSICAL EXAM: VITALS: Reviewed CONSTITUTIONAL: Well developed and in no acute distress. EYES: Conjuctivae without sclera icterus. Extraocular movements grossly intact. HEAD, EARS, NOSE, THROAT: Moist buccal mucosa. Head is atraumatic, normocephalic. Wears glasses. RESPIRATORY: Non-labored respirations and equal bilateral excursions. CARDIOVASCULAR: Palpable 2+ radial pulses. ABDOMEN: Dressing clean dry and intact. MUSCULOSKELETAL: Nail and fingers with good capillary refill. SKIN: Warm and well perfused with good skin turgor. NEUROLOGIC: Cranial nerves II through XII grossly intact. No focal or lateralizing signs. PSYCH: Appropriate affect. Alert and oriented to person, place and time. Displays appropriate insight. CLINCAL LABS: Reviewed. WBC elevated over 25,000 down to over 17,000, now 14,000. Liver enzymes improving, total bilirubin normal. ASSESSMENT: 1. Acute cholecystitis with leukocytosis and sepsis 2. Left inguinal hernia with large bowel 3. Diabetes type 2, [id number] 4. Hypertensive heart disease 5. 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 Gangrenous cholecystitis PLAN: 1. Clinically, patient reports moderate improvement of abdominal pain and feels well. 2. Continue hospitalization due to sepsis. 3. Continue IV antibiotics. 4. May need discharge home with oral antibiotics for gangrenous cholecystitis 5. Disposition home in 24-48 hours pending resolution of leukocytosis Objective - Vital Signs Vital signs: Vital Signs Temp 98.1 F 04/23/21 12:59 Pulse 68 04/23/21 12:59 Resp 17 04/23/21 12:59 BP 108/60 04/23/21 12:59 Pulse Ox 96 04/23/21 07:00 Intake & Output 04/22/21 04/23/21 04/23/21 18:59 06:59 18:59 Intake Total 1600 Output Total 20 600 112 Balance 1580 -600 -112 Weight 83.007 kg Intake: IV 1600 Output: Urine 600 Post Void Residual 112 Estimated Blood Loss 20 Other: Voiding Method Toilet Toilet Urinal Urinal # Voids 2 1 - Labs CBC & Chem 7: 04/23/21 06:22 04/23/21 06:22 Labs: Abnormal Lab Results - Last 24 Hours (Table) 04/23/21 04/23/21 Range/Units 06:22 06:22 WBC 14.89 H (4.50-10.00) X 10*3/uL RBC 4.38 L (4.40-5.60) X 10*6/uL MPV 9.1 L (9.5-12.2) fL Immature Gran # 0.15 H (0.00-0.04) X 10*3/uL Neutrophils # 11.72 H (1.80-7.70) X 10*3/uL Monocytes # 1.08 H (0.20-1.00) X 10*3/uL Potassium 3.3 L (3.5-5.5) mmol/L Anion Gap 14.10 H (4.00-12.00) mmol/L Calcium 8.2 L (8.7-10.3) mg/dL AST 46 H (14-35) U/L Total Protein 6.0 L (6.2-8.2) g/dL Albumin 3.2 L (3.8-4.9) g/dL Albumin/Globulin Ratio 1.14 L (1.60-3.17) g/dL Microbiology - Last 24 Hours (Table) 04/22/21 15:33 Gram Stain - Preliminary Abdomen Wound Culture - Preliminary 04/22/21 15:33 Anaerobic Culture - Preliminary Gallbladder Fluid Assessment and Plan (1) Sepsis Current Visit: Yes Status: Acute Code(s): A41.9 - SEPSIS, UNSPECIFIED ORGANISM SNOMED Code(s): 26409149 (2) Acute cholecystitis Current Visit: Yes Status: Acute Code(s): K81.0 - ACUTE CHOLECYSTITIS SNOMED Code(s): 78323902 (3) Cholelithiasis Current Visit: Yes Status: Acute Code(s): K80.20 - CALCULUS OF GALLBLADDER W/O CHOLECYSTITIS W/O OBSTRUCTION SNOMED Code(s): 737546054 (4) Leukocytosis Current Visit: Yes Status: Acute Code(s): D72.829 - ELEVATED WHITE BLOOD CELL COUNT, UNSPECIFIED SNOMED Code(s): 918931337 (5) AV block, 1st degree Current Visit: Yes Status: Acute Code(s): I44.0 - ATRIOVENTRICULAR BLOCK, FIRST DEGREE SNOMED Code(s): 630088867 (6) Right bundle branch block (RBBB) Current Visit: Yes Status: Acute Code(s): I45.10 - UNSPECIFIED RIGHT BUNDLE- BRANCH BLOCK SNOMED Code(s): 90169875 (7) Gangrene of gallbladder in cholecystitis Current Visit: Yes Status: Acute Code(s): K82.A1 - GANGRENE OF GALLBLADDER IN CHOLECYSTITIS SNOMED Code(s): 708697380
[2021-04-23] MEDS: TAMSULOSIN 0.4 MG CAP.ER.24H PO SCH (16:47)
--- NOTE | 2021-04-23 21:19 | P.PN ---
Progress Note - Text Progress Note Date: 04/23/21 Chief Complaint: Abdominal pain History of presenting complaint: This is a pleasant 85 year old patient of Dr. Phillips. Chronic stable medical conditions include diabetes, hypertension, osteoarthritis, hyperlipidemia, hypothyroid, BPH chronic back pain. Lives with his . Patient is very active for his age. Walks 2 or 3 blocks everyday. Does water aerobics and plays golf. Patient does deny started having abdominal pain and felt a bit better on Wednesday. Did have some nausea vomiting. Pain came back again. Which was in the upper abdomen. No fever no chills. Otherwise appetite has been good. Ultrasound did show cholecystitis. Patient denies any cardiac history. 04/21/2021: Sitting up in a chair. Abdominal pain present. No nausea vomiting. IV Zosyn. IV fluids. Has been placed on low-fat diet by surgery. Surgery planned for tomorrow 04/22/2021: Sitting up in a chair. Grandson visiting. Pending surgery this afternoon. No new issues. Pain present. 04/23/2021: Underwent cholecystectomy yesterday. Tolerating a soft bland diet. Family at the bedside. No nausea vomiting. Pain much better controlled. Has been up to the bathroom. Review of systems: Was done for constitutional, cardiovascular, GI, pulmonary. relevant finding as above Active Medications Atenolol (Atenolol 50 Mg Tab) 100 mg PO DAILY [facility] Last Admin: 04/23/21 08:47 Dose: 100 mg Documented by: Docusate Sodium (Docusate 100 Mg Cap) 100 mg PO BID [facility] Last Admin: 04/23/21 09:09 Dose: 100 mg Documented by: Furosemide (Furosemide 10 Mg/Ml 2 Ml Vial) 20 mg IV DAILY [facility] Last Admin: 04/23/21 12:18 Dose: 20 mg Documented by: Heparin Sodium (Porcine) (Heparin Sodium,Porcine/Pf 5,000 Unit/0.5 Ml Syringe) 5,000 unit SQ Q12HR [facility] Last Admin: 04/23/21 09:03 Dose: 5,000 unit Documented by: Hydromorphone HCl (Hydromorphone 1 Mg/Ml 1 Ml Syringe) 1 mg IVP Q3HR PRN PRN Reason: Moderate to Severe Pain Hydromorphone HCl (Hydromorphone 0.5 Mg/0.5 Ml Syringe) 0.5 mg IVP Q5M PRN PRN Reason: Pain Control Stop: 04/23/21 23:00 Lactated Ringer's (Lactated Ringers) 1,000 mls @ 20 mls/hr IV .Q24H [facility] Last Admin: 04/23/21 16:48 Dose: Not Given Documented by: Piperacillin Sod/Tazobactam (Sod 3.375 gm/ Sodium Chloride) 100 mls @ 200 mls/hr IVPB Q8H [facility] Last Admin: 04/23/21 16:45 Dose: 200 mls/hr Documented by: Ketorolac Tromethamine (Ketorolac 15 Mg/Ml 1 Ml Vial) 15 mg IVP Q6HR [facility] Stop: 04/25/21 16:38 Last Admin: 04/23/21 16:43 Dose: 15 mg Documented by: Lisinopril (Lisinopril 2.5 Mg Tab) 2.5 mg PO DAILY [facility] Last Admin: 04/23/21 08:47 Dose: 2.5 mg Documented by: Melatonin (Melatonin 5 Mg Tablet) 10 mg PO [facility] Last Admin: 04/22/21 21:44 Dose: 10 mg Documented by: Naloxone HCl (Naloxone 0.4 Mg/Ml 1 Ml Vial) 0.2 mg IV Q2M PRN PRN Reason: Opioid Reversal Ondansetron HCl (Ondansetron 4 Mg/2 Ml Vial) 4 mg IVP Q6HR PRN PRN Reason: Nausea And Vomiting Pantoprazole Sodium (Pantoprazole 40 Mg/10 Ml Vial) 40 mg IV DAILY [facility] Last Admin: 04/23/21 08:52 Dose: 40 mg Documented by: Pravastatin Sodium (Pravastatin Sodium 40 Mg Tab) 40 mg PO [facility] Last Admin: 04/22/21 21:44 Dose: 40 mg Documented by: Simethicone (Simethicone 40 Mg/0.6 Ml Drops 2,000 Mg/30 Ml Bottle) 80 mg PO [facility] Last Admin: 04/23/21 16:47 Dose: 80 mg Documented by: Tamsulosin HCl (Tamsulosin 0.4 Mg Cap.Er.24h) 0.4 mg PO -SUPPER [facility] Last Admin: 04/23/21 16:47 Dose: 0.4 mg Documented by: Past medical history to include: Diabetes mellitus, heart of hearing, hypertension, hyperlipidemia, osteoarthritis, BPH, hypothyroid, left neck mass for workup, colon polyps, low back pain, Social history: . Has been using a cane since August 2014. Does drive a car. No smoking. Occasional cigar. Stopped in 1979. No alcohol. Family history: COPD Physical examination: VITAL SIGNS: 98.1, 68, 17, 1 8 x 60, 93% on room air GENERAL: Sitting up in a chair, awake EYES: Pupils equal. Conjunctiva normal. HEENT: External appearance of nose and ears normal, oral cavity grossly normal. NECK: JVD not raised; masses not palpable. HEART: First and second heart sounds are normal; no edema. LUNGS: Respiratory rate normal; some basal crackles ABDOMEN: Soft, right upper quadrant tenderness, no guarding rigidity, liver spleen not palpable, no masses palpable. Dressing over the incision site. PSYCH: Alert and oriented x3; mood and affect normal. MUSCULAR skeletal: Evidence of OA INVESTIGATIONS, reviewed in the clinical context: April 23: WBC 14.8 potassium 3.3 creatinine 0.9 April 22: WBC 16.2 hemoglobin 13.2 potassium 3.5 creatinine 0.84 April 21: WBC 22.5 hemoglobin 15.8 potassium 3.2 creatinine 0.76 April 20: WBC 20.2 hemoglobin 14.6 platelets 248 potassium 3.6 creatinine 0.9 Admission labs: UA negative Coronavirus [PCR]: Not detected Sodium 1:30 WBC 25.1 Chest x-ray film personally reviewed by me-borderline currently. Some chronic changes. EKG tracing personally reviewed by me-normal sinus rhythm. Right bundle-branch block. Rate 69 Computed tomography scan of the abdomen pelvis with contrast: Gallbladder is mildly distended and multiple gallstones. One is mildly taken that is pericholecystic inflammation. Assessment and plan: -Acute cholecystitis with symptoms coming on 3 days ago. Underlying gallstones: IV Zosyn. Cholecystectomy in April 22. Diet advanced. -Diabetes mellitus type 2, on oral hypoglycemic Hold Glucophage. Follow Accu-Cheks -Hard of hearing -Hyperlipidemia Pravastatin 40 mg daily at bedtime -Essential hypertension Zestril 2.5 mg daily -Primary osteoarthritis multiplebilateral Pain medications as needed -BPH Follow clinically -Hypokalemia Replace potassium IV Zosyn. DC IV fluids.. 1 dose of IV Lasix 20 mg. Increase activity. Repeat labs. Hopefully home tomorrow.
[2021-04-23] MEDS: PRAVASTATIN SODIUM 40 MG TAB PO SCH (22:00)
[2021-04-23] MEDS: MELATONIN 5 MG TABLET PO SCH (22:00)
[2021-04-23 22:21] LABS: Glucose,Whole Blood 168 mg/dL (75-99)
[2021-04-23] MEDS: INSULIN ASPART (NovoLOG) 100 UNIT/ML VIAL SQ SCH (23:30)
[2021-04-24] MEDS: PIPERACILLIN-TAZOBACTAM 3.375 GM in SODIUM CHLORIDE 0.9% 100 ML IVPB SCH ×3 (02:57→17:01)
[2021-04-24] MEDS: KETOROLAC 15 MG/ML 1 ML VIAL IVP SCH ×3 (06:14→17:01)
[2021-04-24 07:25] LABS: Glucose,Whole Blood 105 mg/dL (75-99)
[2021-04-24] MEDS: INSULIN ASPART (NovoLOG) 100 UNIT/ML VIAL SQ SCH ×4 (07:44→21:45)
[2021-04-24] MEDS: atenoloL 50 MG TAB PO SCH (07:51)
[2021-04-24] MEDS: DOCUSATE 100 MG CAP PO SCH ×2 (07:51→21:44)
[2021-04-24] MEDS: HEPARIN SODIUM,PORCINE/PF 5,000 UNIT/0.5 ML SYRINGE SQ SCH ×2 (07:51→21:44)
[2021-04-24] MEDS: SIMETHICONE 40 MG/0.6 ML DROPS 2,000 MG/30 ML BOTTLE PO SCH ×4 (07:51→21:45)
[2021-04-24] MEDS: FUROSEMIDE 10 MG/ML 2 ML VIAL IV SCH (07:51)
[2021-04-24] MEDS: PANTOPRAZOLE 40 MG/10 ML VIAL IV SCH (07:52)
--- NOTE | 2021-04-24 08:51 | P.OP ---
Date of Procedure: 04/22/21 Procedure(s) Performed: Robotic cholecystectomy for gangrenous cholecysitis. Description of Procedure: SURGEON: MARCOS MORRISON MD PREOPERATIVE DIAGNOSES: 1. Acute cholecystitis with sepsis 2. Symptomatic gallstones 3. Hypertensive heart disease 4. Abnormal EKG with 1st degree AV block 5. Diabetes type 2, [id number] 6. Hyperlipidemia 7. Hearing disorder 8. Obstructive uropathy due to prostate disorder POSTOPERATIVE DIAGNOSES: 1. Acute hemorrhagic gangrenous cholecystitis with cystic duct obstruction due to gallstones 2. Symptomatic gallstones 3. Hypertensive heart disease 4. Abnormal EKG with 1st degree AV block 5. Diabetes type 2, [id number] 6. Hyperlipidemia 7. Hearing disorder 8. Obstructive uropathy due to prostate disorder OPERATION: 1. Robotic-assisted da Lincoln Xi laparoscopic lysis of adhesions over 1 hour 2. Robotic-assisted da Lincoln Xi laparoscopic cholecystectomy, multiport with FIREFLY ESTIMATED BLOOD LOSS: 20 mL. SPECIMENS REMOVED: Gallbladder. COMPLICATIONS: None. OPERATIVE FINDINGS: 1. Acute hemorrhagic gangrenous cholecystitis with hydrops and distended gallbladder 2. Indocyanine green confirms acute cholecystitis with lack of contrast in gallbladder 3. Common bile duct within normal limits, without dilation INDICATIONS: The patient is a 85 year-old female who presents with epigastric right upper quadrant pain, symptomatic gallstones, WBC over 25,000, and clinical features of acute cholecystitis with presentation of sepsis. Antibiotic management including pain management was prescribed to manage her cholecystitis. Cardiac risk assessment was performed prior to surgery. Surgical intervention with cholecystectomy was described. Robotic assisted laparoscopic approach was described. Benefits and risks of the procedure including but not limited to bleeding, infection, injury to the biliary tree was reviewed. Informed consent was obtained. DESCRIPTION OF PROCEDURE: Patient was brought to the operating room, placed in supine position. After general induction, the abdomen had been prepped and draped in standard sterile fashion. The robotic da Lincoln XI system was primed. After a timeout protocol was performed, the patient had been prepped and draped in standard sterile fashion. The patient was injected with indocyanine green. A 5 mm 0 degrees laparoscopic trocar entry was performed along the left upper quadrant. The abdomen insufflated to 15 mmHg pressure which was tolerated well. Diagnostic laparoscopy demonstrated no injury to bowel viscera or mesentery. The liver surface was unremarkable. A moderately distended gallbladder was identified adding complexity to the case. Next, two 8 mm robotic ports were placed along the right upper abdomen. The camera 8-mm port was maintained along the epigastrium. Another 8 mm port was placed along the left upper abdominal wall after exchanging the 5 mm port. Please note that the ports were placed at least 10 to 15 cm away from the target anatomy of the gallbladder. The robot was docked along the left lateral abdomen. The patient was repositioned in reverse Trendelenburg position at 21 with the right side up 7. Using a grasper for arm 3, a grasper for arm 4, including hook cautery for arm 1, the robotic system was docked and primed as described. Instruments were interchanged by the animal assistant including hook cautery, Bovie cautery and clip appliers. Additional instruments including vessel sealer, robotic suction rehabilitation clerk, robotic stapler were made available. I had sat at the console. The gallbladder was encased in surrounding tissue including the proximal small bowel, omentum adding complexity to the case and requiring extensive lysis of adhesions using blunt and sharp dissection using vessel sealer including hook artery for over one hour. The gallbladder was reflected towards the dome of the liver. The gallbladder was moderately distended adding complexity to the case. Edema was found along the cystic triangle including infundibulum. Initial dissection was performed on the gallbladder infundibulum using indocyanine green to illuminate the cystic duct and common bile duct. Due to moderate distention of the infundibulum, dome down technique was performed removing the gallbladder from the hepatic fossa starting from the fundus towards the infundibulum. Using a sponge, the liver was reflected towards the diaphragm and starting at the gallbladder fundus, hook cautery was used between the liver and the gallbladder. The patient pre-existing easy bleeding from her skin incisions and from the liver bed requiring hemostatic agents such as fibular. As the gallbladder was dissected from the hepatic fossa, hemostasis was checked using vessel sealer along the posterior gallbladder. Next, indocyanine green was used to confirm the common bile duct as well as cystic duct. The entire gallbladder was without contrast consistent with acute cholecystitis. The gallbladder was decompressed to allow manipulation of the gallbladder. The infundibulum was retracted laterally away from the common bile duct. The left upper quadrant trocar was exchanged for a 12 mm robotic trocar. FIREFLY was used to identify the common bile duct. Robotic 45 mm blue staple loads were fired across the infundibulum as the cystic duct and cystic structures were moderately edematous. Additionally, gallstone was impacted along the neck of the gallbladder. Bleeding along the liver bed was controlled and hemostatic agents. The abdomen was irrigated with normal saline solution of 1 L. Indocyanine green was used to confirm no bile leak from the staple line. Sponges were removed from the abdomen. The robot was undocked. I re-scrubbed into the case. A 10 mm Endo Catch bag was used to remove the gallbladder in total via the left upper quadrant incision after widening the incision. The specimen was removed from the abdominal cavity. Kp Adorno and 0 Vicryl was used to close the fascial defect of the left upper quadrant. All pneumoperitoneum instruments were evacuated from the abdominal cavity. The incisions were cleansed using dilute hydrogen peroxide. The incisions were reapproximated using 4-0 Monocryl in an interrupted subcuticular fashion. P lease note along the trocar sites, local anesthetic was placed as a field block prior to insertion of all instruments. Liquid glue was applied to the skin. Optifoam was placed along left upper quad rant. At the end of the procedure needle, sponge, and instrument count had been verified correct by the catheterization laboratory technician. The patient was transferred to postanesthesia care unit in stable condition. Intraoperative films were shared with the patient's family who were pleased with the level of care.
[2021-04-24 09:53] LABS: Basophils # (A) 0.05 X 10*3/uL (0.00-0.10); Basophils % (A) 0.4 %; Eosinophils # (A) 0.31 X 10*3/uL (0.04-0.35); Eosinophils % (A) 2.6 %; HCT 37.6 % (39.6-50.0); HGB 12.9 g/dL (13.0-17.0); Lymphocytes # (A) 1.46 X 10*3/uL (0.90-5.00); Lymphocytes % (A) 12.1 %; MCH 30.8 pg (27.0-32.0); MCHC 34.3 g/dL (32.0-37.0); MCV 89.7 fL (80.0-97.0); Mean Platelet Volume 9.4 fL (9.5-12.2); Monocytes # (A) 0.91 X 10*3/uL (0.20-1.00); Monocytes % (A) 7.5 %; Neutrophils # (A) 9.21 X 10*3/uL (1.80-7.70); Neutrophils % (A) 76.3 %; Platelet Count 273 X 10*3/uL (140-440); RBC 4.19 X 10*6/uL (4.40-5.60); RDW 14.2 % (11.5-14.5); WBC 12.07 X 10*3/uL (4.50-10.00)
[2021-04-24 12:07] LABS: Glucose,Whole Blood 122 mg/dL (75-99)
--- NOTE | 2021-04-24 13:28 | P.PN ---
Subjective Progress Note Date: 04/24/21 CHIEF COMPLAINT: Right upper quadrant abdominal pain, cholecystitis. HISTORY OF PRESENT ILLNESS: The patient is a 85 year old male status post cholecystectomy, 04/22/2021 with findings of gangrenous cholecystitis. Family is at bedside. Patient reports inability to sleep as he takes melatonin 10 mg each night and sleeps 3 hours. No reports of abdominal pain. REVIEW OF ORGAN SYSTEMS: Denies active chest pain. No shortness of breath. No nausea or vomiting. No fevers or chills. PHYSICAL EXAM: VITALS: Reviewed CONSTITUTIONAL: Well developed and in no acute distress. EYES: Conjuctivae without sclera icterus. Extraocular movements grossly intact. HEAD, EARS, NOSE, THROAT: Moist buccal mucosa. Head is atraumatic, normocephalic. Wears glasses. RESPIRATORY: Non-labored respirations and equal bilateral excursions. CARDIOVASCULAR: Palpable 2+ radial pulses. ABDOMEN: Incisions clean dry and intact. MUSCULOSKELETAL: Nail and fingers with good capillary refill. SKIN: Warm and well perfused with good skin turgor. NEUROLOGIC: Cranial nerves II through XII grossly intact. No focal or la teralizing signs. PSYCH: Appropriate affect. Alert and oriented to person, place and time. Displays appropriate insight. CLINCAL LABS: Reviewed. WBC elevated over 25,000 down 12,000. Liver enzymes almost normal. ASSESSMENT: 1. Acute cholecystitis with leukocytosis and sepsis 2. Left inguinal hernia with large bowel 3. Diabetes type 2, [id number] 4. Hypertensive heart disease 5. 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 Gangrenous cholecystitis PLAN: 1. His white count is trending downward however continue IV antibiotics due to gangrenous cholecystitis. 2. Likely disposition in 24 hours. 3. Medications for sleep reviewed. 4. Continue low-fat diet. Objective - Vital Signs Vital signs: Vital Signs Temp 98.3 F 04/24/21 08:00 Pulse 81 04/24/21 08:00 Resp 16 04/24/21 08:00 BP 123/81 04/24/21 08:00 Pulse Ox 94 L 04/24/21 10:17 Intake & Output 04/23/21 04/24/21 04/24/21 18:59 06:59 18:59 Output Total 112 Balance -112 Output: Post Void Residual 112 Other: Voiding Method Toilet Toilet Urinal # Voids 1 - Labs CBC & Chem 7: 04/24/21 05:59 04/23/21 06:22 Labs: Abnormal Lab Results - Last 24 Hours (Table) 04/23/21 04/24/21 04/24/21 Range/Units 22:19 05:59 07:05 WBC 12.07 H (4.50-10.00) X 10*3/uL RBC 4.19 L (4.40-5.60) X 10*6/uL Hgb 12.9 L (13.0-17.0) g/dL Hct 37.6 L (39.6-50.0) % MPV 9.4 L (9.5-12.2) fL Immature Gran # 0.13 H (0.00-0.04) X 10*3/uL Neutrophils # 9.21 H (1.80-7.70) X 10*3/uL POC Glucose (mg/dL) 168 H 105 H (75-99) mg/dL 04/24/21 Range/Units 12:00 WBC (4.50-10.00) X 10*3/uL RBC (4.40-5.60) X 10*6/uL Hgb (13.0-17.0) g/dL Hct (39.6-50.0) % MPV (9.5-12.2) fL Immature Gran # (0.00-0.04) X 10*3/uL Neutrophils # (1.80-7.70) X 10*3/uL POC Glucose (mg/dL) 122 H (75-99) mg/dL Microbiology - Last 24 Hours (Table) 04/22/21 15:33 Gram Stain - Preliminary Abdomen Wound Culture - Preliminary Assessment and Plan (1) Sepsis Current Visit: Yes Status: Acute Code(s): A41.9 - SEPSIS, UNSPECIFIED ORGANISM SNOMED Code(s): 07040619 (2) Acute cholecystitis Current Visit: Yes Status: Acute Code(s): K81.0 - ACUTE CHOLECYSTITIS SNOMED Code(s): 03172327 (3) Cholelithiasis Current Visit: Yes Status: Acute Code(s): K80.20 - CALCULUS OF GALLBLADDER W/O CHOLECYSTITIS W/O OBSTRUCTION SNOMED Code(s): 731441469 (4) Leukocytosis Current Visit: Yes Status: Acute Code(s): D72.829 - ELEVATED WHITE BLOOD CELL COUNT, UNSPECIFIED SNOMED Code(s): 150388855 (5) AV block, 1st degree Current Visit: Yes Status: Acute Code(s): I44.0 - ATRIOVENTRICULAR BLOCK, FIRST DEGREE SNOMED Code(s): 721880789 (6) Right bundle branch block (RBBB) Current Visit: Yes Status: Acute Code(s): I45.10 - UNSPECIFIED RIGHT BUNDLE- BRANCH BLOCK SNOMED Code(s): 31010353 (7) Gangrene of gallbladder in cholecystitis Current Visit: Yes Status: Acute Code(s): K82.A1 - GANGRENE OF GALLBLADDER IN CHOLECYSTITIS SNOMED Code(s): 769055974
[2021-04-24 13:44] VITALS: BMI 27.0
[2021-04-24] MEDS ORDERED: FUROSEMIDE 10 MG/ML 2 ML VIAL IV ONE (14:00)
[2021-04-24 15:56] LABS: African American GFR (CKD) 85.5 (60.0-200.0); Albumin/Globulin Ratio 1.18 (1.60-3.17); Anion Gap 13.1 mmol/L (4.00-12.00); BUN/Creat Ratio 16.83 Ratio (12.00-20.00); Blood Urea Nitrogen 15.7 mg/dL (9.0-27.0); Calcium 8.1 mg/dL (8.7-10.3); Carbon Dioxide 23.7 mmol/L (21.6-31.8); Globulin 2.6 g/dL (1.6-3.3); Non-African American GFR(CKD) 73.8 (60.0-200.0); Potassium 3.2 mmol/L (3.5-5.5); Total Bilirubin 0.6 mg/dL (0.30-1.20); Total Protein 5.6 g/dL (6.2-8.2)
--- NOTE | 2021-04-24 16:35 | XR ---
EXAMINATION TYPE: XR chest 2V DATE OF EXAM: 04/24/2021 COMPARISON: 04/19/2021 HISTORY: Shortness of breath TECHNIQUE: Frontal and lateral views of the chest are obtained. FINDINGS: Scattered senescent parenchymal changes noted. Hyperinflation compatible with COPD. Minimal reticulonodular infiltrate left upper lobe is stable and of uncertain chronicity. Heart size is stable. Mediastinal structures are stable and grossly unremarkable. No evidence for hilar prominence. Degenerative changes dorsal spine. IMPRESSION: 1. Minimal reticulonodular infiltrate left upper lobe is stable and of uncertain chronicity.
[2021-04-24 16:49] LABS: Glucose,Whole Blood 139 mg/dL (75-99)
[2021-04-24] MEDS: TAMSULOSIN 0.4 MG CAP.ER.24H PO SCH (17:00)
[2021-04-24] MEDS: LACTATED RINGERS 1,000 ML IV SCH (17:01)
[2021-04-24 20:30] LABS: Glucose,Whole Blood 118 mg/dL (75-99)
[2021-04-24] MEDS: MELATONIN 5 MG TABLET PO SCH (21:44)
[2021-04-24] MEDS: PRAVASTATIN SODIUM 40 MG TAB PO SCH (21:44)
--- NOTE | 2021-04-25 00:24 | P.PN ---
Progress Note - Text Progress Note Date: 04/24/21 Chief Complaint: Abdominal pain History of presenting complaint: This is a pleasant 85 year old patient of Dr. Phillips. Chronic stable medical conditions include diabetes, hypertension, osteoarthritis, hyperlipidemia, hypothyroid, BPH chronic back pain. Lives with his . Patient is very active for his age. Walks 2 or 3 blocks everyday. Does water aerobics and plays golf. Patient does deny started having abdominal pain and felt a bit better on Wednesday. Did have some nausea vomiting. Pain came back again. Which was in the upper abdomen. No fever no chills. Otherwise appetite has been good. Ultrasound did show cholecystitis. Patient denies any cardiac history. 04/21/2021: Sitting up in a chair. Abdominal pain present. No nausea vomiting. IV Zosyn. IV fluids. Has been placed on low-fat diet by surgery. Surgery planned for tomorrow 04/22/2021: Sitting up in a chair. Grandson visiting. Pending surgery this afternoon. No new issues. Pain present. 04/23/2021: Underwent cholecystectomy yesterday. Tolerating a soft bland diet. Family at the bedside. No nausea vomiting. Pain much better controlled. Has been up to the bathroom. 04/24/2021: Was given 1 dose of Lasix yesterday. Naselle to be fluid overloaded. From IV fluids. Pulse ox 89% room air. On nasal cannula. Some shortness of breath. 2 more doses of IV Lasix ordered. Check stat x-ray ordered. Abdominal pain better. Review of systems: Was done for constitutional, cardiovascular, GI, pulmonary. relevant finding as above Active Medications Atenolol (Atenolol 50 Mg Tab) 100 mg PO DAILY [facility] Last Admin: 04/24/21 07:51 Dose: 100 mg Documented by: Docusate Sodium (Docusate 100 Mg Cap) 100 mg PO BID [facility] Last Admin: 04/24/21 21:44 Dose: 100 mg Documented by: Furosemide (Furosemide 10 Mg/Ml 2 Ml Vial) 20 mg IV DAILY [facility] Last Admin: 04/24/21 07:51 Dose: 20 mg Documented by: Heparin Sodium (Porcine) (Heparin Sodium,Porcine/Pf 5,000 Unit/0.5 Ml Syringe) 5,000 unit SQ Q12HR [facility] Last Admin: 04/24/21 21:44 Dose: 5,000 unit Documented by: Hydromorphone HCl (Hydromorphone 1 Mg/Ml 1 Ml Syringe) 1 mg IVP Q3HR PRN PRN Reason: Moderate to Severe Pain Lactated Ringer's (Lactated Ringers) 1,000 mls @ 20 mls/hr IV .Q24H [facility] Last Admin: 04/24/21 17:01 Dose: Not Given Documented by: Piperacillin Sod/Tazobactam (Sod 3.375 gm/ Sodium Chloride) 100 mls @ 200 mls/hr IVPB Q8H [facility] Last Admin: 04/24/21 17:01 Dose: 200 mls/hr Documented by: Insulin Aspart (Insulin Aspart (Novolog) 100 Unit/Ml Vial) 0 unit SQ [facility]; Protocol Last Admin: 04/24/21 21:45 Dose: Not Given Documented by: Ketorolac Tromethamine (Ketorolac 15 Mg/Ml 1 Ml Vial) 15 mg IVP Q6HR [facility] Stop: 04/25/21 16:38 Last Admin: 04/24/21 17:01 Dose: 15 mg Documented by: Lisinopril (Lisinopril 2.5 Mg Tab) 2.5 mg PO DAILY [facility] Last Admin: 04/24/21 07:50 Dose: 2.5 mg Documented by: Melatonin (Melatonin 5 Mg Tablet) 10 mg PO [facility] Last Admin: 04/24/21 21:44 Dose: 10 mg Documented by: Naloxone HCl (Naloxone 0.4 Mg/Ml 1 Ml Vial) 0.2 mg IV Q2M PRN PRN Reason: Opioid Reversal Ondansetron HCl (Ondansetron 4 Mg/2 Ml Vial) 4 mg IVP Q6HR PRN PRN Reason: Nausea And Vomiting Pantoprazole Sodium (Pantoprazole 40 Mg/10 Ml Vial) 40 mg IV DAILY [facility] Last Admin: 04/24/21 07:52 Dose: 40 mg Documented by: Pravastatin Sodium (Pravastatin Sodium 40 Mg Tab) 40 mg PO [facility] Last Admin: 04/24/21 21:44 Dose: 40 mg Documented by: Simethicone (Simethicone 40 Mg/0.6 Ml Drops 2,000 Mg/30 Ml Bottle) 80 mg PO [facility] Last Admin: 04/24/21 21:45 Dose: 80 mg Documented by: Tamsulosin HCl (Tamsulosin 0.4 Mg Cap.Er.24h) 0.4 mg PO PC-SUPPER [facility] Last Admin: 04/24/21 17:00 Dose: 0.4 mg Documented by: Past medical history to include: Diabetes mellitus, heart of hearing, hypertension, hyperlipidemia, osteoarthritis, BPH, hypothyroid, left neck mass for workup, colon polyps, low back pain, Social history: . Has been using a cane since August 2014. Does drive a car. No smoking. Occasional cigar. Stopped in 1979. No alcohol. Family history: COPD Physical examination: VITAL SIGNS: 97.8, 86, 16, 123 with 78, 89% on room air GENERAL: Sitting up in a chair, awake EYES: Pupils equal. Conjunctiva normal. HEENT: External appearance of nose and ears normal, oral cavity grossly normal. NECK: JVD not raised; masses not palpable. HEART: First and second heart sounds are normal; no edema. LUNGS: Respiratory rate normal; some basal crackles ABDOMEN: Soft, right upper quadrant tenderness, no guarding rigidity, liver spleen not palpable, no masses palpable. Dressing over the incision site. PSYCH: Alert and oriented x3; mood and affect normal. MUSCULAR skeletal: Evidence of OA INVESTIGATIONS, reviewed in the clinical context: April 24: WBC 12 globin 12.9 potassium 3.2 creatinine 0.9 April 23: WBC 14.8 potassium 3.3 creatinine 0.9 April 22: WBC 16.2 hemoglobin 13.2 potassium 3.5 creatinine 0.84 April 21: WBC 22.5 hemoglobin 15.8 potassium 3.2 creatinine 0.76 April 20: WBC 20.2 hemoglobin 14.6 platelets 248 potassium 3.6 creatinine 0.9 Admission labs: UA negative Coronavirus [PCR]: Not detected Sodium 1:30 WBC 25.1 Chest x-ray film personally reviewed by me-borderline currently. Some chronic changes. EKG tracing personally reviewed by me-normal sinus rhythm. Right bundle-branch block. Rate 69 Computed tomography scan of the abdomen pelvis with contrast: Gallbladder is mildly distended and multiple gallstones. One is mildly taken that is pericholecystic inflammation. Assessment and plan: -Acute cholecystitis with symptoms coming on 3 days ago. Underlying gallstones: IV Zosyn. Cholecystectomy in April 22. Diet advanced. -Acute pulmonary edema from IV fluids IV Lasix. DC IV fluids. -Acute hypoxic respiratory failure from pulmonary edema Oxygen supplement -Diabetes mellitus type 2, on oral hypoglycemic Hold Glucophage. Follow Accu-Cheks -Hard of hearing -Hyperlipidemia Pravastatin 40 mg daily at bedtime -Essential hypertension Zestril 2.5 mg daily -Primary osteoarthritis multiplebilateral Pain medications as needed -BPH Follow clinically -Hypokalemia Replace potassium IV Zosyn. IV Lasix 20 mg 2 today. Care was discussed with the patient. X-ray repeated late in the afternoon. Repeat labs in the morning.
[2021-04-25] MEDS: KETOROLAC 15 MG/ML 1 ML VIAL IVP SCH ×3 (00:51→11:48)
[2021-04-25] MEDS: PIPERACILLIN-TAZOBACTAM 3.375 GM in SODIUM CHLORIDE 0.9% 100 ML IVPB SCH ×2 (02:33→09:12)
[2021-04-25 04:30] LABS: Basophils % (A) 0 %; Eosinophils # (A) 0.3 k/uL (0-0.7); Eosinophils % (A) 3 %; HCT 38.1 % (39.0-53.0); HGB 12.5 gm/dL (13.0-17.5); Lymphocytes # (A) 1.8 k/uL (1.0-4.8); Lymphocytes % (A) 16 %; MCH 30.1 pg (25.0-35.0); MCHC 32.9 g/dL (31.0-37.0); MCV 91.4 fL (80.0-100.0); Mean Platelet Volume 6.8; Monocytes # (A) 0.7 k/uL (0-1.0); Monocytes % (A) 6 %; Neutrophils # (A) 8.7 k/uL (1.3-7.7); Neutrophils % (A) 74 %; Platelet Count 290 k/uL (150-450); RBC 4.16 m/uL (4.30-5.90); RDW 13.4 % (11.5-15.5); WBC 11.7 k/uL (3.8-10.6)
[2021-04-25 04:37] LABS: ALT 29 U/L (4-49); AST 34 U/L (17-59); African American GFR (CKD) >90 (>60 ml/min/1.73 sqM); Albumin 2.9 g/dL (3.5-5.0); Alkaline Phosphatase 70 U/L (38-126); Anion Gap 9 mmol/L; Blood Urea Nitrogen 18 mg/dL (9-20); Carbon Dioxide 25 mmol/L (22-30); Chloride 99 mmol/L (98-107); Glucose 117 mg/dL (74-99); Non-African American GFR(CKD) 80 (>60 ml/min/1.73 sqM); Potassium 3.1 mmol/L (3.5-5.1); Sodium 133 mmol/L (137-145); Total Bilirubin 0.9 mg/dL (0.2-1.3); Total Protein 5.9 g/dL (6.3-8.2)
[2021-04-25] MEDS: INSULIN ASPART (NovoLOG) 100 UNIT/ML VIAL SQ SCH ×2 (07:03→12:04)
[2021-04-25 07:10] LABS: Glucose,Whole Blood 99 mg/dL (75-99)
[2021-04-25] MEDS: SIMETHICONE 40 MG/0.6 ML DROPS 2,000 MG/30 ML BOTTLE PO SCH ×2 (08:08→12:48)
[2021-04-25] MEDS: DOCUSATE 100 MG CAP PO SCH (08:08)
[2021-04-25] MEDS: atenoloL 50 MG TAB PO SCH (08:08)
[2021-04-25] MEDS: HEPARIN SODIUM,PORCINE/PF 5,000 UNIT/0.5 ML SYRINGE SQ SCH (08:08)
[2021-04-25] MEDS: PANTOPRAZOLE 40 MG/10 ML VIAL IV SCH (08:37)
[2021-04-25] MEDS: FUROSEMIDE 10 MG/ML 2 ML VIAL IV SCH (08:37)
[2021-04-25] MEDS ORDERED: POTASSIUM CHLORIDE ER 20 MEQ TAB.ER PO SCH (09:00)
[2021-04-25 09:50] VITALS: BP 144/88; PULSE 78; RESP 16; TEMP 98
[2021-04-25] MEDS: LACTATED RINGERS 1,000 ML IV SCH (11:49)
[2021-04-25 11:51] LABS: Glucose,Whole Blood 106 mg/dL (75-99)
--- NOTE | 2021-04-25 14:56 | P.PN ---
Subjective Progress Note Date: 04/25/21 CHIEF COMPLAINT: Right upper quadrant abdominal pain, cholecystitis. HISTORY OF PRESENT ILLNESS: The patient is a 85 year old male status post cholecystectomy, 04/22/2021 with findings of gangrenous cholecystitis. Family is at bedside. Patient reports inability to sleep as he takes melatonin 10 mg each night and sleeps 3 hours. No reports of abdominal pain. Patient had 2 bowel movements yesterday and 3 today. REVIEW OF ORGAN SYSTEMS: Denies active chest pain. No shortness of breath. No nausea or vomiting. No fevers or chills. PHYSICAL EXAM: VITALS: Reviewed CONSTITUTIONAL: Well developed and in no acute distress. EYES: Conjuctivae without sclera icterus. Extraocular movements grossly intact. HEAD, EARS, NOSE, THROAT: Moist buccal mucosa. Head is atraumatic, normocephalic. Wears glasses. RESPIRATORY: Non-labored respirations and equal bilateral excursions. CARDIOVASCULAR: Palpable 2+ radial pulses. ABDOMEN: Incisions clean dry and intact. MUSCULOSKELETAL: Nail and fingers with good capillary refill. SKIN: Warm and well perfused with good skin turgor. NEUROLOGIC: Cranial nerves II through XII grossly intact. No focal or lateralizing signs. PSYCH: Appropriate affect. Alert and oriented to person, place and time. Displays appropriate insight. CLINCAL LABS: Reviewed. WBC elevated over 25,000 down 11,700. Liver enzymes normal. ASSESSMENT: 1. Acute cholecystitis with leukocytosis and sepsis 2. Left inguinal hernia with large bowel 3. Diabetes type 2, [id number] 4. Hypertensive heart disease 5. 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 Gangrenous cholecystitis PLAN: 1. His white count is trending downward however recommend outpatient antibiotics, which have been sent to pharmacy 2. Continue low-fat diet 3. The patient is cleared from general surgery for discharge once otherwise medically stable The impression and plan of care has been dictated as directed. I performed a history and examination of this patient, discussed the same with the dictator. I agree with the dictator's note ,documented as a scribe. Any additional findings or plans will be noted. Objective - Vital Signs Vital signs: Vital Signs Temp 98 F 04/25/21 08:00 Pulse 78 04/25/21 08:00 Resp 16 04/25/21 08:00 BP 144/88 04/25/21 08:00 Pulse Ox 93 L 04/25/21 08:00 Intake & Output 04/24/21 04/25/21 04/25/21 18:59 06:59 18:59 Intake Total 400 500 Output Total 3 Balance 400 -3 500 Weight 83.007 kg Intake: Oral 400 500 Output: Urine 3 Other: Voiding Method Toilet Toilet # Voids 2 - Labs CBC & Chem 7: 04/25/21 03:47 04/25/21 03:47 Labs: Abnormal Lab Results - Last 24 Hours (Table) 04/24/21 04/24/21 04/24/21 Range/Units 05:59 16:47 20:28 WBC (3.8-10.6) k/uL RBC (4.30-5.90) m/uL Hgb (13.0-17.5) gm/dL Hct (39.0-53.0) % Neutrophils # (1.3-7.7) k/uL Sodium (137-145) mmol/L Potassium 3.2 L (3.5-5.5) mmol/L Anion Gap 13.10 H (4.00-12.00) mmol/L Glucose 115 H (70-110) mg/dL POC Glucose (mg/dL) 139 H 118 H (75-99) mg/dL Calcium 8.1 L (8.7-10.3) mg/dL Total Protein 5.6 L (6.2-8.2) g/dL Albumin 3.0 L (3.8-4.9) g/dL Albumin/Globulin Ratio 1.18 L (1.60-3.17) g/dL 04/25/21 04/25/21 04/25/21 Range/Units 03:47 03:47 11:50 WBC 11.7 H (3.8-10.6) k/uL RBC 4.16 L (4.30-5.90) m/uL Hgb 12.5 L (13.0-17.5) gm/dL Hct 38.1 L (39.0-53.0) % Neutrophils # 8.7 H (1.3-7.7) k/uL Sodium 133 L (137-145) mmol/L Potassium 3.1 L (3.5-5.5) mmol/L Anion Gap (4.00-12.00) mmol/L Glucose 117 H (70-110) mg/dL POC Glucose (mg/dL) 106 H (75-99) mg/dL Calcium 8.0 L (8.7-10.3) mg/dL Total Protein 5.9 L (6.2-8.2) g/dL Albumin 2.9 L (3.8-4.9) g/dL Albumin/Globulin Ratio (1.60-3.17) g/dL Microbiology - Last 24 Hours (Table) 04/22/21 15:33 Anaerobic Culture - Preliminary Gallbladder Fluid 04/22/21 15:33 Gram Stain - Final Abdomen Wound Culture - Final Assessment and Plan (1) AV block, 1st degree Status: Acute Code(s): I44.0 - ATRIOVENTRICULAR BLOCK, FIRST DEGREE SNOMED Code(s): 781619726 (2) Acute cholecystitis Status: Acute Code(s): K81.0 - ACUTE CHOLECYSTITIS SNOMED Code(s): 67861237 (3) Cholelithiasis Status: Acute Code(s): K80.20 - CALCULUS OF GALLBLADDER W/O CHOLECYSTITIS W/O OBSTRUCTION SNOMED Code(s): 825053292 (4) Gangrene of gallbladder in cholecystitis Status: Acute Code(s): K82.A1 - GANGRENE OF GALLBLADDER IN CHOLECYSTITIS SNOMED Code(s): 382705943 (5) Leukocytosis Status: Acute Code(s): D72.829 - ELEVATED WHITE BLOOD CELL COUNT, UNSPECIFIED SNOMED Code(s): 331307526 (6) Right bundle branch block (RBBB) Status: Acute Code(s): I45.10 - UNSPECIFIED RIGHT BUNDLE-BRANCH BLOCK SNOMED Code(s): 85600515 (7) Sepsis Status: Acute Code(s): A41.9 - SEPSIS, UNSPECIFIED ORGANISM SNOMED Code(s): 50101221
--- NOTE | 2021-04-25 17:39 | P.DS ---
Providers Date of admission: 04/19/21 13:45 Expected date of discharge: 04/25/21 Attending physician: Harlan Broussard Consults: 04/19/21 13:46 Consult Physician Urgent Consulting Provider: Lisa Tineo Consult Reason/Comments: Cholecystitis with cholelithiasis Do you want consulting provider notified?: Already Contacted 04/19/21 16:19 Consult Physician Routine Consulting Provider: [facility] Consult Reason/Comments: [facility] Do you want consulting provider notified?: Yes Primary care physician: [facility] Course: Chief Complaint: Abdominal pain History of presenting complaint: This is a pleasant 85 [address] old patient of Dr. Phillips. Chronic stable medical conditions include diabetes, hypertension, osteoarthritis, hyperlipidemia, hypothyroid, BPH chronic back pain. Lives with his . Patient is very active for his age. Walks 2 or 3 blocks everyday. Does water aerobics and plays golf. Patient does deny started having abdominal pain and felt a bit better on Wednesday. Did have some nausea vomiting. Pain came back again. Which was in the upper abdomen. No fever no chills. Otherwise appetite has been good. Ultrasound did show cholecystitis. Patient denies any cardiac history. April 22 patient underwent cholecystectomy. Subsequently had pulmonary edema from IV fluids. He required IV Lasix. Respond well. Also IV Zosyn. Today: Sitting up in chair. Breathing well. Fair oral intake. Feeling well. Care was discussed with the patient. Also with Dr. Garza. Cleared for discharge. Home with antibiotics. Discussion and discharge planning more than 35 minutes Consultation: Dr. Garza from [facility] Past medical history to include: Diabetes mellitus, heart of hearing, hypertension, hyperlipidemia, osteoarthritis, BPH, hypothyroid, left neck mass for workup, colon polyps, low back pain, Social history: . Has been using a cane since August 2014. Does drive a car. No smoking. Occasional cigar. Stopped in 1979. No alcohol. Family history: COPD Physical examination: VITAL SIGNS: 98, 78, 16, 144 cans 88, 93% room air GENERAL: Sitting up in a chair, awake EYES: Pupils equal. Conjunctiva normal. HEENT: External appearance of nose and ears normal, oral cavity grossly normal. NECK: JVD not raised; masses not palpable. HEART: First and second heart sounds are normal; no edema. LUNGS: Respiratory rate normal; improved air entry ABDOMEN: Soft, minimal right upper quadrant tenderness, no guarding rigidity, li nick spleen not palpable, no masses palpable. Dressing over the incision site. PSYCH: Alert and oriented x3; mood and affect normal. MUSCULAR skeletal: Evidence of OA INVESTIGATIONS, reviewed in the clinical context: April 25: WBC 11.7 hemoglobin 12.5 potassium 3.1 creatinine 0.83 April 20: WBC 20.2 hemoglobin 14.6 platelets 248 potassium 3.6 creatinine 0.9 Admission labs: UA negative Coronavirus [PCR]: Not detected Sodium 1:30 WBC 25.1 Chest x-ray film personally reviewed by me-borderline currently. Some chronic changes. EKG tracing personally reviewed by me-normal sinus rhythm. Right bundle-branch block. Rate 69 Computed tomography scan of the abdomen pelvis with contrast: Gallbladder is mildly distended and multiple gallstones. One is mildly taken that is pericholecystic inflammation. Assessment and plan: -Acute cholecystitis with symptoms coming on 3 days ago. Underlying gallstones: IV Zosyn. Cholecystectomy in April 22. Diet tolerated. Discharged on Augmentin for 10 days -Acute pulmonary edema from IV fluids IV Lasix. Given -Acute hypoxic respiratory failure from pulmonary edema, improved Oxygen supplement -Diabetes mellitus type 2, on oral hypoglycemic Glucophage. Follow Accu-Cheks -Hard of hearing -Hyperlipidemia Pravastatin 40 mg daily at bedtime -Essential hypertension Zestril 2.5 mg daily -Primary osteoarthritis multiplebilateral Pain medications as needed -BPH Follow clinically -Hypokalemia Replace potassium Disposition: Home Patient Condition at Discharge: Fair Plan - Discharge Summary Discharge Rx Participant: No New Discharge Prescriptions: New Acetaminophen Tab [Tylenol Tab] 1,000 mg PO Q6HR PRN #30 tablet PRN Reason: Pain Tamsulosin [Flomax] 0.4 mg PO PC-SUPPER #30 Tamsulosin [Flomax] 0.4 mg PO PC-SUPPER #30 cap Simethicone [Gas-X] 125 mg PO AC-TID PRN #20 cap PRN Reason: Pain Ibuprofen [Motrin] 600 mg PO Q8HR PRN #30 tab PRN Reason: Pain Amoxic-Pot Clav 875-125Mg [Augmentin 875-125] 1 each PO Q12HR #20 tab Continue Pravastatin Sodium 40 mg PO HS Cholecalciferol [Vitamin D3 (25 Mcg = 1000 Iu)] 50 mcg PO DAILY Potassium Chloride [Klor-Con 20] 40 meq PO DAILY Potassium Chloride [Klor-Con 20] 20 meq PO HS metFORMIN HCL [Glucophage] 500 mg PO AC-BID Vitamin C/Biotin [Hair, Skin and Nails Chew] 1 tab PO DAILY Aspirin EC [Ecotrin Low Dose] 81 mg PO DAILY lisinopriL [Zestril] 2.5 mg PO DAILY Melatonin [Melatonin Disolving Tablet] 10 mg PO HS Atenolol/Chlorthalidone [Atenolol/Chlorthalidone 100-25] 1 tab PO DAILY Discharge Medication List Cholecalciferol [Vitamin D3 (25 Mcg = 1000 Iu)] 50 mcg PO DAILY 03/21/14 [History] Pravastatin Sodium 40 mg PO HS 03/21/14 [History] Potassium Chloride [Klor-Con 20] 20 meq PO HS 02/20/15 [History] Potassium Chloride [Klor-Con 20] 40 meq PO DAILY 02/20/15 [History] metFORMIN HCL [Glucophage] 500 mg PO AC-BID 12/18/15 [History] Aspirin EC [Ecotrin Low Dose] 81 mg PO DAILY 04/19/21 [History] Atenolol/Chlorthalidone [Atenolol/Chlorthalidone 100-25] 1 tab PO DAILY 04/19/21 [History] Melatonin [Melatonin Disolving Tablet] 10 mg PO HS 04/19/21 [History] Vitamin C/Biotin [Hair, Skin and Nails Chew] 1 tab PO DAILY 04/19/21 [History] lisinopriL [Zestril] 2.5 mg PO DAILY 04/19/21 [History] Acetaminophen Tab [Tylenol Tab] 1,000 mg PO Q6HR PRN #30 tablet 04/24/21 [Rx] Ibuprofen [Motrin] 600 mg PO Q8HR PRN #30 tab 04/24/21 [Rx] Simethicone [Gas-X] 125 mg PO AC-TID PRN #20 cap 04/24/21 [Rx] Amoxic-Pot Clav 875-125Mg [Augmentin 875-125] 1 each PO Q12HR #20 tab 04/25/21 [Rx] Tamsulosin [Flomax] 0.4 mg PO PC-SUPPER #30 04/25/21 [Rx] Tamsulosin [Flomax] 0.4 mg PO PC-SUPPER #30 cap 04/25/21 [Rx] Follow up Appointment(s)/Referral(s): Waldemar Phillips DO [Primary Care Provider] - 06/12/21 1:40 pm (They are putting you on the cancelation list they will call you if they have a cancelation. ) Lisa Tineo MD [STAFF PHYSICIAN] - 04/29/21 1:30 pm Patient Instructions/Handouts: *[facility] - Managing Your Pain After Surgery Without Opioids, How to Use an Incentive Spirometer (DC), Low Fat Diet (DC), Laparoscopic Cholecystectomy (GEN) Activity/Diet/Wound Care/Special Instructions: GRAB MEDICATIONS FROM PHARMACY THAT ARE LOCKED UP. TICKET IN CHART THANK YOU Recommend low-fat diet for the next 2 days. No lifting over 10 pounds in 2 weeks until May 06. November shower. No bath tub soaks for two weeks until May 06. Diet as tolerated. Use Tylenol, simethicone and ibuprofen or Aleve scheduled for the next 24-48 hours for best pain relief. Use ice along incisions for today to prevent swelling. Discharge Disposition: HOME SELF-CARE
== END 2021-04-25 13:55 | disposition home or self-care (01) | DRG 417 ==
LOC: EC 08:44 → 5NMEDONC 13:45 → 4SSUR 16:49
PROVIDERS: ADMIT Hospitalist; ATTEND Hospitalist
PROC: 0FN44ZZ Release Gallbladder, Percutaneous Endoscopic Approach (ICD-10-PCS; 2021-04-22)
PROC: 8E0W4CZ Robotic Assisted Procedure of Trunk Region, Percutaneous Endoscopic Approach (ICD-10-PCS; 2021-04-22)
PROC: BF53200 Other Imaging of Gallbladder and Bile Ducts using Fluorescing Agent, Indocyanine Green Dye, Intraoperative (ICD-10-PCS; 2021-04-22)
PROC: 0FT44ZZ Resection of Gallbladder, Percutaneous Endoscopic Approach (ICD-10-PCS; principal; 2021-04-22 12:30)
DX: K80.01 Calculus of gallbladder with acute cholecystitis with obstruction (principal); J81.0 Acute pulmonary edema; J96.01 Acute respiratory failure with hypoxia; N13.8 Other obstructive and reflux uropathy; J81.1 Chronic pulmonary edema; E03.9 Hypothyroidism, unspecified; K80.10 Calculus of gallbladder with chronic cholecystitis without obstruction; E11.9 Type 2 diabetes mellitus without complications; E78.5 Hyperlipidemia, unspecified; Z20.822 Contact with and (suspected) exposure to COVID-19; E87.6 Hypokalemia; E87.70 Fluid overload, unspecified; F17.290 Nicotine dependence, other tobacco product, uncomplicated; G47.00 Insomnia, unspecified; G89.29 Other chronic pain; H91.90 Unspecified hearing loss, unspecified ear; I11.9 Hypertensive heart disease without heart failure; R00.1 Bradycardia, unspecified; M54.9 Dorsalgia, unspecified; I44.0 Atrioventricular block, first degree; I45.10 Unspecified right bundle-branch block; K40.90 Unilateral inguinal hernia, without obstruction or gangrene, not specified as recurrent; K82.A1 Gangrene of gallbladder in cholecystitis; M19.91 Primary osteoarthritis, unspecified site; N40.1 Benign prostatic hyperplasia with lower urinary tract symptoms; Z79.84 Long term (current) use of oral hypoglycemic drugs; Z79.899 Other long term (current) drug therapy; Z82.5 Family history of asthma and other chronic lower respiratory diseases; Z96.652 Presence of left artificial knee joint; Z79.82 Long term (current) use of aspirin
CPT/HCPCS: 36415; 71046; 74018; 74177; 78226; 80048; 80053; 81003; 82150; 83036; 83605; 83690; 84484; 85025; 87070; 87075; 87205; 87635; 88304; 93005; 93306; 96365; 96366; 96375; 99285

== ENCOUNTER → 2021-05-02 | Outpatient (CLI) | payer MEDICARE, BC ==
[2021-05-02 19:43] LABS: Basophils # (A) 0.09 X 10*3/uL (0.00-0.10); Basophils % (A) 0.7 %; Eosinophils # (A) 0.36 X 10*3/uL (0.04-0.35); Eosinophils % (A) 2.8 %; HGB 13.4 g/dL (13.0-17.0); Lymphocytes # (A) 2.35 X 10*3/uL (0.90-5.00); Lymphocytes % (A) 18.4 %; MCH 29.6 pg (27.0-32.0); MCHC 32.7 g/dL (32.0-37.0); MCV 90.7 fL (80.0-97.0); Mean Platelet Volume 8.7 fL (9.5-12.2); Monocytes % (A) 6.3 %; Neutrophils # (A) 9.01 X 10*3/uL (1.80-7.70); Neutrophils % (A) 70.6 %; Platelet Count 518 X 10*3/uL (140-440); RBC 4.52 X 10*6/uL (4.40-5.60); RDW 13.9 % (11.5-14.5); WBC 12.76 X 10*3/uL (4.50-10.00)
[2021-05-02 20:09] LABS: African American GFR (CKD) 78.6 (60.0-200.0); Albumin 3.9 g/dL (3.8-4.9); Albumin/Globulin Ratio 1.22 (1.60-3.17); BUN/Creat Ratio 13.4 Ratio (12.00-20.00); Blood Urea Nitrogen 13.4 mg/dL (9.0-27.0); Calcium 9.5 mg/dL (8.7-10.3); Globulin 3.2 g/dL (1.6-3.3); Non-African American GFR(CKD) 67.8 (60.0-200.0); Potassium 5.1 mmol/L (3.5-5.5); Total Bilirubin 0.5 mg/dL (0.30-1.20); Total Protein 7.1 g/dL (6.2-8.2)
== END | disposition home or self-care (01) ==
LOC: LABWHC1 12:00
PROVIDERS: ATTEND Surgery Plastic and Reconstructive Surgery
DX: K80.10 Calculus of gallbladder with chronic cholecystitis without obstruction (principal)
CPT/HCPCS: 36415; 80053; 85025

== ENCOUNTER → 2021-10-15 | Outpatient (CLI) | payer MEDICARE, BC ==
--- NOTE | 2021-10-16 10:44 | US ---
EXAMINATION TYPE: US thyroid st tissue head/neck DATE OF EXAM: 10/15/2021 COMPARISON: 09/05/2020 CLINICAL HISTORY: 85-year-old male E04.1. Follow up thyroid nodules. TECHNIQUE: Multiple sonographic images of the thyroid gland are obtained. FINDINGS: GLAND SIZE: Right Lobe: 2.9 x 1.7 x 1.8 cm Overall Parenchyma: Left Lobe: 2.0 x 1.1 x 1.3 cm Overall Parenchyma: Isthmus Thickness: 0.1 cm NODULES RIGHT: # of nodules measured on right: 2 1. 0.5 X 0.4 x 0.4 cm, upper , solid or almost completely solid, hypoechoic nodule, which is wider than tall, with smooth margins, without echogenic foci. Prior size: 0.5 x 0.3 x 0.5 cm 2. 0.5 X 0.3 x 0.4 cm, medial, mixed cystic and solid, hypoechoic nodule, which is wider than tall, with smooth margins, without echogenic foci. Prior size: 0.5 x 0.3 x 0.6 cm There is an additional rounded area seen on the provided images. Exhibit Carpenter reports that this is par tial volume imaging and represents adjacent soft tissue outside of the thyroid gland parenchyma. LEFT: # of nodules measured on left: 0 ISTHMUS: # of nodules measured in the isthmus: 0 Bilateral neck scanned, no evidence of lymphadenopathy. IMPRESSION: 1. Small thyroid gland may reflect chronic hypothyroidism. Clinically correlate. 2. A couple small nodules on the right measuring up to 5 mm. Not significantly changed.
== END | disposition home or self-care (01) ==
LOC: RADUSWWP 16:15
PROVIDERS: ATTEND Family Medicine
DX: E04.1 Nontoxic single thyroid nodule (principal)
CPT/HCPCS: 76536

== ENCOUNTER 2022-01-05 07:21 | Emergency (ER) | payer MEDICARE, BC ==
[2022-01-05 07:27] VITALS: RESP 18; TEMP 97.6
[2022-01-05] MEDS ORDERED: ALBUTEROL HFA INHALER INHALATION STA (07:37)
--- NOTE | 2022-01-05 07:45 | ED ---
URI HPI - General Chief Complaint: Upper Respiratory Infection Stated Complaint: Congestion Time Seen by Provider: 01/05/22 07:30 Source: patient, family, RN notes reviewed, old records reviewed Mode of arrival: ambulatory Limitations: no limitations - History of Present Illness Initial Comments: This is a well-appearing 86-year-old male who presents ambulatory with his complaining of cough, congestion and sore throat for the past 4 days. No nausea, vomiting, diarrhea or abdominal pain. Patient denies any fevers. No chest pain. States that his cough is productive and green in color. States he has been trying ALLERGY medication recommended by the pharmacist which has helped. is at bedside concerned for viral illness, states that she is going out of the country soon. Patient has gotten his coronavirus vaccine and booster. MD Complaint: cough, sore throat, nasal congestion -: days(s) (4) Severity scale (1-10): 0 Associated Symptoms: nasal congestion, sore throat, cough Treatments Prior to Arrival: other (allergy medication) - Related Data Home Medications Medication Instructions Recorded Confirmed Cholecalciferol [Vitamin D3 (25 50 mcg PO DAILY 03/21/14 04/19/21 Mcg = 1000 Iu)] Pravastatin Sodium 40 mg PO HS 03/21/14 04/19/21 Potassium Chloride [Klor-Con 20] 20 meq PO HS 02/20/15 04/19/21 Potassium Chloride [Klor-Con 20] 40 meq PO DAILY 02/20/15 04/19/21 metFORMIN HCL [Glucophage] 500 mg PO AC-BID 12/18/15 04/19/21 Aspirin EC [Ecotrin Low Dose] 81 mg PO DAILY 04/19/21 04/19/21 Atenolol/Chlorthalidone 1 tab PO DAILY 04/19/21 04/19/21 [Atenolol/Chlorthalidone 100-25] Melatonin [Melatonin Dissolving 10 mg PO HS 04/19/21 04/19/21 Tablet] Vitamin C/Biotin [Hair, Skin and 1 tab PO DAILY 04/19/21 04/19/21 Nails Chew] lisinopriL [Zestril] 2.5 mg PO DAILY 04/19/21 04/19/21 Previous Rx's Medication Instructions Recorded Acetaminophen Tab [Tylenol Tab] 1,000 mg PO Q6HR PRN #30 tablet 04/24/21 Ibuprofen [Motrin] 600 mg PO Q8HR PRN #30 tab 04/24/21 Simethicone [Gas-X] 125 mg PO AC-TID PRN #20 cap 04/24/21 Amoxic-Pot Clav 875-125Mg 1 each PO Q12HR #20 tab 04/25/21 [Augmentin 875-125] Tamsulosin [Flomax] 0.4 mg PO PC-SUPPER #30 04/25/21 Tamsulosin [Flomax] 0.4 mg PO PC-SUPPER #30 cap 04/25/21 Azithromycin [Zithromax] 500 mg PO DAILY 3 Days #3 tab 01/05/22 Allergies Allergy/AdvReac Type Severity Reaction Status Date / Time No Known Allergies Allergy Verified 01/05/22 07:27 Review of Systems ROS Statement: Those systems with pertinent positive or pertinent negative responses have been documented in the HPI. ROS Other: All systems not noted in ROS Statement are negative. Past Medical History Past Medical History: Diabetes Mellitus, Hearing Disorder / Deafness, Hyperlipidemia, Hypertension, Osteoarthritis (OA), Prostate Disorder, Thyroid Disorder Additional Past Medical History / Comment(s): 01/02/15 PT admitted to floor s/p total L knee. Other HX: Bradycardia, diet control diabetic, L neck mass which needs to be bx soon, enlarged prostate, hypothyroid, colon polyp, cataracts bilaterally, pain magangement consult for back pain History of Any Multi-Drug Resistant Organisms: None Reported Past Surgical History: Adenoidectomy, Appendectomy, Joint Replacement, Orthopedic Surgery, Tonsillectomy Additional Past Surgical History / Comment(s): 01/02/15 Total L knee arthroplasty, colonoscopy with polypectomy-benign, KNEE ARTHROSCOPIC LEFT X2, L knee injections, hemorrhoidectomy, PAIN CLINIC INJECTIONS Past Anesthesia/Blood Transfusion Reactions: No Reported Reaction Past Psychological History: No Psychological Hx Reported Smoking Status: Never smoker Past Alcohol Use History: None Reported Past Drug Use History: None Reported - Past Family History Father Family Medical History: COPD Additional Family Medical History / Comment(s): Father was a smoker. Brother(s) Family Medical History: Cancer Additional Family Medical History / Comment(s): colon Sister(s) Family Medical History: Cancer Additional Family Medical History / Comment(s): colon Mother Family Medical History: Cancer Additional Family Medical History / Comment(s): colon-had colostomy. at 82yrs. General Exam Limitations: no limitations General appearance: alert, in no apparent distress Eye exam: Absent: scleral icterus, conjunctival injection ENT exam: Present: mucous membranes moist, other (Erythematous oropharynx) Expanded Mouth exam: Present: tongue normal. Absent: drooling, trismus, muffled voice Throat exam: negative: tonsillar erythema, tonsillomegaly, tonsillar exudate, R peritonsillar mass, L peritonsillar mass Neck exam: Present: full ROM. Absent: tenderness, meningismus Respiratory exam: Present: normal lung sounds bilaterally. Absent: respiratory distress, rhonchi, stridor, accessory muscle use Cardiovascular Exam: Present: regular rate, normal rhythm GI/Abdominal exam: Present: soft. Absent: distended, tenderness Extremities exam: Present: normal inspection, full ROM, normal capillary refill. Absent: tenderness, pedal edema Back exam: Absent: tenderness, CVA tenderness (R), CVA tenderness (L), rash noted Neurological exam: Present: alert, oriented X3, normal gait Psychiatric exam: Present: normal affect, normal mood Skin exam: Present: warm, dry, normal color. Absent: cyanosis, diaphoretic, petechiae, pallor Course Vital Signs 01/05/22 01/05/22 01/05/22 07:23 07:50 09:28 Temperature 97.6 F Pulse Rate 82 72 Respiratory 18 18 Rate Blood Pressure 165/92 122/74 O2 Sat by Pulse 97 94 L 91 L Oximetry Medical Decision Making - Medical Decision Making 86-year-old well-appearing male presents ambulatory with complaints of congestion for 4 days with productive green cough and sore throat. States his symptoms are getting better after starting ALLERGY medication. He has received his coronavirus vaccine and booster. Denies chest pain or difficulty in breathing. No fevers, abdominal pain, nausea, vomiting or diarrhea. Last normal bowel movement was today. Patient denies any chronic lung disease. Lungs sounds are clear to auscultation oxygen saturation 97%. Chest x-ray done shows no acute cardiopulmonary disease, COPD changes. Considering patient's symptoms of 4 days of productive green sputum and x-ray showing COPD changes, patient was placed on Zithromax. They were directed to return back to the emergency room with any new or concerning symptoms including difficulty breathing or chest pain. He was instructed to follow up with his primary care doctor next week. Patient and his are agreeable to this plan of care. Case discussed with Dr. Joel. - Lab Data Lab Results 01/05/22 01/05/22 Range/Units 07:41 07:41 Coronavirus (PCR) Not Detected (Not Detectd) Influenza Type A RNA Not Detected (Not Detectd) Influenza Type B (PCR) Not Detected (Not Detectd) Disposition Clinical Impression: Bronchitis, Acute upper respiratory infection Disposition: HOME SELF-CARE Condition: Good Instructions (If sedation given, give patient instructions): Upper Respiratory Infection (ED), Acute Bronchitis (ED) Additional Instructions: Increase your fluid intake. Continue taking ALLERGY medicine in addition to taking the Zithromax antibiotic as prescribed. Follow-up with the primary care doctor next week. Return to the emergency room with any new or concerning symptoms including chest pain or difficulty breathing. Prescriptions: Azithromycin [Zithromax] 500 mg PO DAILY 3 Days #3 tab Is patient prescribed a controlled substance at d/c from ED?: No Referrals: Waldemar Phillips DO [Primary Care Provider] - 1-2 days Time of Disposition: 08:48
--- NOTE | 2022-01-05 08:02 | XR ---
EXAMINATION TYPE: XR chest 2V DATE OF EXAM: 01/05/2022 7:51 AM COMPARISON: Chest radiographs from 04/24/2021 TECHNIQUE: XR chest 2V Frontal and lateral views of the chest. CLINICAL INDICATION:Male, 86 years old with history of cough; FINDINGS: Lungs/Pleura: There is flattening of the diaphragm with increased lucency of the lungs. No evidence o f pneumothorax, pleural effusion or focal consolidation. Pulmonary vascularity: Unremarkable. Heart/mediastinum: Cardiomediastinal silhouette is unremarkable. Musculoskeletal: No acute osseous pathology. IMPRESSION: 1. No acute cardiopulmonary disease/process no significant change from priors given patient position ing. 2. COPD changes
[2022-01-05 09:28] VITALS: BP 122/74; PULSE 72
== END 2022-01-05 09:33 | disposition home or self-care (01) ==
LOC: EC 07:21
DX: J40 Bronchitis, not specified as acute or chronic (principal); E11.9 Type 2 diabetes mellitus without complications; E78.5 Hyperlipidemia, unspecified; I10 Essential (primary) hypertension; Z20.822 Contact with and (suspected) exposure to COVID-19
CPT/HCPCS: 71046; 87502; 87635; 99284

== ENCOUNTER → 2022-09-22 | Outpatient (CLI) | payer MEDICARE, BC ==
--- NOTE | 2022-09-22 14:39 | US ---
EXAMINATION TYPE: US thyroid st tissue head/neck DATE OF EXAM: 09/22/2022 COMPARISON: US October 2021 CLINICAL HISTORY: E04.1 Thyroid nodule. follow up on known right nodules GLAND SIZE: Right Lobe: 3.2 x 1.7 x 1.3 cm Overall Parenchyma: somewhat heterogeneous Left Lobe: 3.4 x 1.2 0.8 cm Overall Parenchyma: homogeneous Isthmus Thickness: 0.4 cm NODULES RIGHT: # of nodules measured on right: 3; scattered small nodules 1. 0.6 X 0.4 x 0.7 cm, lower mid, solid or almost completely solid, isoechoic nodule, which is wide r than tall, with smooth margins, without echogenic foci. Prior size: 0.5 x 0.3 x 0.4 cm 2. 0.6 X 0.4 x 0.5 cm, mid mid, solid or almost completely solid, hypoechoic nodule, which is wider than tall, with smooth margins, without echogenic foci. Prior size: 0.5 x 0.4 x 0.4 cm 3. 0.9 X 0.6 x 0.8 cm, lower mid, solid or almost completely solid, hyperechoic nodule, which is wi sharlene than tall, with smooth margins, without echogenic foci. Prior size: no prior measurements LEFT: # of nodules measured on left: 0 ISTHMUS: # of nodules measured in the isthmus: 0 Bilateral neck scanned, no evidence of lymphadenopathy. IMPRESSION: 1. Scattered small thyroid nodules. No suspicious nodules are evident.
== END | disposition home or self-care (01) ==
LOC: RADUSWWP 13:44
PROVIDERS: ATTEND Family Medicine
DX: E04.2 Nontoxic multinodular goiter (principal)
CPT/HCPCS: 76536

== ENCOUNTER → 2023-05-12 | Outpatient (CLI) | payer MEDICARE, BC ==
[2023-05-12 17:01] LABS: Blood Urea Nitrogen 18.2 mg/dL (9.0-27.0); Carbon Dioxide 24.4 mmol/L (21.6-31.8); Chloride 100 mmol/L (96-109); Potassium 4.7 mmol/L (3.5-5.5); Sodium 136 mmol/L (135-145)
[2023-05-12 17:17] LABS: HCT 49.5 % (39.6-50.0); HGB 16.7 g/dL (13.0-17.0); MCH 29.7 pg (27.0-32.0); MCHC 33.7 g/dL (32.0-37.0); MCV 88.1 FL (80.0-97.0); NRBC Per 100 WBC 0 X 10*3/uL (0.00-0.01); Platelet Count 268 X 10*3/uL (140-440); RBC 5.62 X 10*6/uL (4.40-5.60); RDW 14.2 % (11.5-14.5); WBC 9.33 X 10*3/uL (4.50-10.00)
== END | disposition home or self-care (01) ==
LOC: LABPAT 09:53
PROVIDERS: ATTEND Internal Medicine Interventional Cardiology
DX: Z01.812 Encounter for preprocedural laboratory examination (principal); R06.02 Shortness of breath
CPT/HCPCS: 80051; 82565; 84520; 85027

== ENCOUNTER → 2023-05-24 | Day surgery (SDC) | payer MEDICARE, BC ==
[~2023-05-24] MED LIST: ALPRAZolam 0.25 MG TAB PO PRN; ALPRAZolam 0.5 MG TAB PO PRN; ASPIRIN 325 MG TAB PO STA; HEPARIN SODIUM 1,000 UN/ML (10ML VL) IV ONE; HEPARIN SODIUM 1,000 UN/ML (10ML VL) ONE; HEPARIN SODIUM,PORCINE (1 ML) 2,500 UNIT in SODIUM CHLORIDE 0.9% 250 ML IRRIGATION PRN; HEPARIN SODIUM,PORCINE 10,000 UNIT in SODIUM CHLORIDE 0.9% 1,000 ML IRRIGATION PRN; IOPAMIDOL-370 100ML BTL INJ ONE; LIDOCAINE 1% INJ 10MG/ML (20 ML MDV) SQ ONE; METOPROLOL SUCCINATE (ER) 25 MG TAB.ER.24H PO SCH; MIDAZOLAM 2 MG/2 ML VIAL IVP ONE; NITROGLYCERIN SL TABS 0.4 MG TAB SUBLINGUAL PRN; RX INFO: IV CONTRAST WAS GIVEN 1 EACH MISC MISCELLANE PRN; SODIUM CHLORIDE 0.9% 1,000 ML IV ONE; SODIUM CHLORIDE 0.9% 1,000 ML IV SCH; SODIUM CHLORIDE 0.9% 1,000 ML in EMPTY BAG 1 BAG IV SCH; VERAPAMIL 2.5 MG/ML 2 ML AMP ONE; VERAPAMIL SYRINGE (5 MG/10 ML) INTRAARTER ONE
[2023-05-24 08:58] VITALS: RESP 16; TEMP 97.1
[2023-05-24 09:01] LABS: Glucose,Whole Blood 91 mg/dL (70-110)
--- NOTE | 2023-05-24 10:13 | P.PCN ---
Date of Procedure: 05/24/23 Operative Findings: CARDIAC CATHETERIZATION PERFORMING PHYSICIAN: Henry Jarrell MD, RPVI PROCEDURE PERFORMED: 1. Selective right and left coronary angiogram 2. Left heart catheterization 3. Ultrasound-guided access of the right radial artery INDICATION: This is an 87-year-old gentleman with diabetes and hypertension and dyslipidemia who was experiencing symptoms of shortness of breath with exertion. He underwent myocardial perfusion imaging stress test and that showed an anterior ischemia and in the light of that a heart catheterization was advised COMPLICATION: None APPROACH: Right radial artery LEVEL OF SEDATION: Moderate with a sedation length of 16 minutes PROCEDURE DESCRIPTION: After obtaining an informed consent, the patient was brought to cardiac section laborer. Local anesthesia was performed using lidocaine subcutaneously. The right radial artery was cannulated using Seldinger technique, the guidewire passed easily, following that we advanced a 5-Malay sheath dilator assembly, the wire and dilator were removed and sheath was flushed. Following that, 2 mg of verapamil along with 5000 unit heparin were given. Selective right and left coronary angiogram using a 6-Malay JR4 and JL 3.5 catheters. Following that we did left heart catheterization using 6-Malay pigtail catheter. The procedure was completed there was no complication. SELECTIVE CORONARY ANGIOGRAM: The right coronary artery: Large caliber vessel and a dominant vessel. The RCA in the proximal and mid and distal portions appear to have mild disease only. Gives rises into PDA and PLV branches. The PDA has intermediate lesion appeared to be in the range of 50% Left main: Large-caliber vessel with severe disease distally appears to be in the range of of 70-80% with hazy lesion. The left circumflex: Large caliber vessel none dominant vessel. The LCx gives rises into an OM which appears to be angiographically normal. Proximal to that has intermediate to severe lesion. The left anterior descending artery: The LAD proximally is a large caliber vessel with no severe disease. The LAD appeared to be dual LAD system and gives rises into a large diagonal branch seems to be as big as the LAD with mild disease only. CONCLUSION: 1. Severe distal left main disease with hazy lesion appeared to be in the range of 70% 2. Intermediate to severe disease involving the PDA branch of the RCA and left circumflex coronary artery POSTPROCEDURE MANAGEMENT: Consult surgeon further evaluation of CABG
--- NOTE | 2023-05-24 10:35 | XR ---
EXAMINATION TYPE: XR chest 1V portable DATE OF EXAM: 05/24/2023 10:30 AM CLINICAL INDICATION:Male, 87 years old with history of preop cardiac surgery; [facility] COMPARISON: Chest radiographs from 01/05/2022 TECHNIQUE: XR chest 1V portable Frontal view of the chest. FINDINGS: Lungs/Pleura: There is no evidence of pleural effusion, focal consolidation, or pneumothorax. Pulmonary vascularity: Pulmonary vascular congestion. Heart/mediastinum: Cardiomediastinal silhouette is enlarged and stable. Musculoskeletal: No acute osseous pathology. IMPRESSION: Cardiomegaly and mild pulmonary vascular congestion. Correlate with BNP for congestive heart failure.
--- NOTE | 2023-05-24 11:27 | US ---
EXAMINATION TYPE: US carotid duplex BILAT DATE OF EXAM: 05/24/2023 COMPARISON: US 2010 CLINICAL INDICATION: Male, 87 years old with history of preop cardiac surgery; TECHNIQUE: Carotid duplex ultrasound examination. Indirect Doppler criteria was utilized. FINDINGS: EXAM MEASUREMENTS: RIGHT: Peak Systolic Velocity (PSV) cm/sec ----- Right CCA: 83.9 ----- Right ICA: 106.0 ----- Right ECA: 79.2 ICA/CCA ratio: 1.3 RIGHT: End Diastole cm/sec ----- Right CCA: 10.6 ----- Right ICA: 25.1 ----- Right ECA: 0.0 LEFT: Peak Systolic Velocity (PSV) cm/sec ----- Left CCA: 117.0 ----- Left ICA: 80.9 ----- Left ECA: 85.5 ICA/CCA ratio: 0.7 LEFT: End Diastole cm/sec ----- Left CCA: 9.1 ----- Left ICA: 15.4 ----- Left ECA: 0.0 VERTEBRALS (direction of flow): Right Vertebral: Antegrade Left Vertebral: Antegrade Rhythm: Normal No significant stenosis IMPRESSION: No hemodynamic significant stenosis. Criteria for Assigning % of Stenosis / Diameter reduction (Estimation based on the indirect measurements of the internal carotid artery velocities (ICA PSV). 1. Normal (no stenosis)=ICA PSV < 125 cm/s: ratio < 2.0: ICA EDV<40 cm/s. 2. Less than 50% stenosis=ICA PSV < 125 cm/s: ratio < 2.0: ICA EDV<40 cm/s. 3. 50 to 69% stenosis=ICA PSV of 125 to 230 cm/s: ration 2.0 ? 4.0: ICA EDV 40-100 cm/s. 4. Greater than 70% stenosis to near occlusion= ICA PSV > 230 cm/s: ratio > 4.0: ICA EDV > 100 cm/s. 5. Near occlusion= ICA PSV velocities may be low or undetectable: variable ratio and ICA EDV. 6. Total occlusion=unable to detect flow.
--- NOTE | 2023-05-24 11:28 | US ---
EXAMINATION TYPE: US vein mapping BILAT DATE OF EXAM: 05/24/2023 11:17 AM COMPARISON: NONE CLINICAL INDICATION: Male, 87 years old with history of preop cardiac surgery; SIDE PERFORMED: Bilateral TECHNIQUE: Lower extremity saphenous vein is examined and measured utilizing real time linear array sonography. DUPLEX FINDINGS: Greater Saphenous: Color flow seen Lesser Saphenous: Color flow seen Measurements in mm: Right Greater Saphenous: Groin: 5.5 x 6.6 mm High Thigh: 5.7 x 5.5 mm Mid Thigh: 2.9 x 3.7 mm Above Knee: 2.4 x 2.5 mm Knee: 2.4 x 2.8 mm Below Knee: 3.0 x 2.8 mm Mid Calf: 1.4 x 1.7 mm At Ankle: 1.5 x 2.0 mm Left Greater Saphenous: Groin: 5.3 x 6.0 mm High Thigh: 5.9 x 6.6 mm Mid Thigh: 3.5 x 3.7 mm Above Knee: 2.8 x 3.6 mm Knee: 2.3 x 3.0 mm Below Knee: 2.0 x 2.4 mm Mid Calf: 2.3 x 2.7 mm At Ankle: 1.7 x 1.9 mm IMPRESSION: 1. Bilateral GSV measurements listed above. 2. Performing surgeon to determine viability as conduit.
--- NOTE | 2023-05-24 13:02 | CT ---
EXAMINATION TYPE: CT chest wo con CT DLP: 350.70 mGycm, Automated exposure control for dose reduction was used. DATE OF EXAM: 05/24/2023 12:56 PM COMPARISON: None CLINICAL INDICATION:Male, 87 years old with history of eval aorta for calcification, clampability; PH H, Eval aorta for calcification, clampability TECHNIQUE: Multiple axial images were obtained through the chest. Sagittal and coronal reformats were created for review. Contrast used: mL of (None if empty) Oral contrast used: (None if empty) FINDINGS: LUNGS/ PLEURA: Calcified pleural plaques are noted most pronounced in the anterior aspect of the lung s. No focal consolidation, pneumothorax or pleural effusion. AIRWAY: Patent and unremarkable. HEART: The heart is mildly enlarged for size. There is mild to moderate coronary artery atheroscleros is. MEDIASTINUM: No gross evidence of adenopathy. VASCULATURE: No aortic aneurysm. Scattered calcifications along the thoracic aorta including the asc ending and descending thoracic aorta. MUSCULOSKELETAL: No acute osseous abnormalities SOFT TISSUES/LYMPH NODES: Bilateral gynecomastia changes. LOWER NECK: No significant findings. UPPER ABDOMEN: Scattered colonic diverticula. IMPRESSION: 1. Moderate atherosclerotic calcifications of the aorta. 2. Mild to moderate coronary artery atherosclerosis. 3. Calcified pleural plaques correlate for history of asbestos exposure. 4. Scattered colonic diverticulosis.
[2023-05-24 15:27] LABS: Appearance,Urine Clear (Clear); Bilirubin,Urine Negative (Negative); Blood,Urine Negative (Negative); Color,Urine Colorless; Glucose,Urine (UA) Negative (Negative); Ketones,Urine Negative (Negative); Leukocyte Esterase,Urine Negative (Negative); Nitrite,Urine Negative (Negative); Protein,Urine Negative (Negative); Specific Gravity,Urine 1.006 (1.001-1.035); Urobilinogen,Urine <2.0 mg/dL (<2.0)
[2023-05-24 15:30] LABS: Basophils # (A) 0.1 k/uL (0-0.2); Basophils % (A) 1 %; Eosinophils # (A) 0.2 k/uL (0-0.7); Eosinophils % (A) 2 %; Lymphocytes # (A) 2.7 k/uL (1.0-4.8); Lymphocytes % (A) 29 %; MCH 30.2 pg (25.0-35.0); MCHC 33.4 g/dL (31.0-37.0); MCV 90.4 fL (80.0-100.0); Mean Platelet Volume 6.6; Monocytes # (A) 0.6 k/uL (0-1.0); Monocytes % (A) 7 %; Neutrophils # (A) 5.5 k/uL (1.3-7.7); Neutrophils % (A) 60 %; Platelet Count 236 k/uL (150-450); RBC 5.64 m/uL (4.30-5.90); RDW 14.1 % (11.5-15.5); WBC 9.3 k/uL (3.8-10.6)
--- NOTE | 2023-05-24 15:39 | US ---
EXAMINATION TYPE: US arterial LE single level DATE OF EXAM: CLINICAL INDICATION: Male, 87 years old with history of Ankle Brachial Index (CAREN); Open heart CAREN Doppler Waveforms: Right: Multiphasic Left: Multiphasic Right Brachial Pressure: Not obtained due to right wrist heart cath Left Brachial Pressure: 112 Ankle-Brachial Indices: Right: CNO Left: 1.3 Toe Brachial Indices: Right: 0.6 Left: 0.7 IMPRESSION: Left ankle-brachial index within normal limits. Right nondiagnostic.
[2023-05-24 15:41] LABS: ALT 19 U/L (4-49); AST 23 U/L (17-59); African American GFR (CKD) >90 (>60 ml/min/1.73 sqM); Albumin 4.1 g/dL (3.5-5.0); Alkaline Phosphatase 53 U/L (38-126); Anion Gap 11 mmol/L; Blood Urea Nitrogen 19 mg/dL (9-20); Calcium 8.9 mg/dL (8.4-10.2); Carbon Dioxide 23 mmol/L (22-30); Chloride 104 mmol/L (98-107); Glucose 66 mg/dL (74-99); Magnesium 1.8 mg/dL (1.6-2.3); Non-African American GFR(CKD) 79 (>60 ml/min/1.73 sqM); Potassium 4.5 mmol/L (3.5-5.1); Sodium 138 mmol/L (137-145); Total Bilirubin 1.4 mg/dL (0.2-1.3); Total Protein 7.4 g/dL (6.3-8.2)
--- NOTE | 2023-05-24 17:52 | CA ---
Transthoracic Echo Report Name: Mauro Chong Age: 87 Gender: M : 1935 Exam Date: 05/24/2023 13:08 Exam Location: [facility] Ht (in): 68 Wt (lb): 175 Ordering Physician: Danette Ridley Attending/Referring Phys: [id number], Keyana Longwall Headgate Operator Simin Langford RDCS Procedure CPT: Indications: preop cardiac surgery Cardiac Hx: Technical Quality: Fair Contrast 1: Total Dose (mL): Contrast 2: Total Dose (mL): MEASUREMENTS (Male / Female) Normal Values 2D ECHO LV Diastolic Diameter PLAX 3.6 cm 4.2 - 5.9 / 3.9 - 5.3 cm LV Systolic Diameter PLAX 1.8 cm IVS Diastolic Thickness 1.7 cm 0.6 - 1.0 / 0.6 - 0.9 cm LVPW Diastolic Thickness 1.3 cm 0.6 - 1.0 / 0.6 - 0.9 cm LV Relative Wall Thickness 0.8 RV Internal Dim ED PLAX 3.5 cm LA Volume 83.1 cm??? 18 - 58 / 22 - 52 cm??? LA Volume Index 42.3 cm???/m??? 16 - 28 cm???/m??? M-MODE Aortic Root Diameter MM 4.2 cm LA Systolic Diameter MM 4.8 cm LA Ao Ratio MM 1.1 AV Cusp Separation MM 2.1 cm DOPPLER AV Peak Velocity 125.6 cm/s AV Peak Gradient 6.3 mmHg AV Mean Velocity 99.7 cm/s AV Mean Gradient 4.2 mmHg AV Velocity Time Integral 25.8 cm LVOT Peak Velocity 124.0 cm/s LVOT Peak Gradient 6.2 mmHg LVOT Velocity Time Integral 24.8 cm MV Peak Velocity 116.0 cm/s MV Peak Gradient 5.4 mmHg MV Mean Velocity 79.2 cm/s MV Mean Gradient 2.7 mmHg MV Velocity Time Integral 33.2 cm MV Area PHT 3.9 cm??? Mitral E Point Velocity 126.3 cm/s Mitral A Point Velocity 79.1 cm/s Mitral E to A Ratio 1.6 MV Deceleration Time 193.9 ms MV E' Velocity 4.2 cm/s Mitral E to MV E' Ratio 30.2 TR Peak Velocity 378.2 cm/s TR Peak Gradient 57.2 mmHg Right Ventricular Systolic Press 61.5 mmHg FINDINGS Left Ventricle Moderately increased left ventricular wall thickness. Left ventricular cavity size normal. Normal left ventricular systolic function with no obvious regional wall motion abnormalities. Left ventricular ejection fraction is estimated at 55-60 %. Right Ventricle Mild right ventricular dilatation. Moderate to severe pulmonary hypertension. Right ventricular systolic pressure estimated at 62 mm hg. Right Atrium Normal right atrial size. Left Atrium Severely increased left atrial volume. Mildly increased left atrial area. Mitral Valve Structurally normal mitral valve. Mild mitral annular calcification. Mild to moderate mitral regurgitation. Aortic Valve Trileaflet aortic valve. No aortic valve stenosis or regurgitation. Aortic valve sclerosis. Tricuspid Valve Structurally normal tricuspid valve. Moderate tricuspid regurgitation. Pulmonic Valve Trace pulmonic regurgitation. Pericardium No pericardial effusion. Aorta Normal size aortic root and proximal ascending aorta. CONCLUSIONS Normal LV systolic function Severe pulmonary hypertension with an RV systolic pressure of 62 mm Mild to moderate mitral regurgitation Moderate tricuspid regurgitation Previewed by: Dr. Vickey Fiore MD (Electronically Signed) Final Date: 24 May 2023 17:51
[2023-05-24 19:37] VITALS: BP 112/62; PULSE 72
--- NOTE | 2023-05-24 22:04 | CONS ---
CONSULTATION REASON FOR REFERRAL: Left main coronary artery disease. HISTORY OF PRESENT ILLNESS: The patient is an 87-year-old gentleman with past medical history of diabetes, hypertension, hyperlipidemia, who is in a reasonable shape for his age, who has been complaining of some dyspnea on exertion that got worse over the last 4 to 6 weeks with his daily activities. He is not relating to any typical anginal symptoms either. The patient underwent a stress test that showed evidence of anterior ischemia and was brought in today for cardiac catheterization. This was done and showed significant left main disease with a normal right coronary artery. Also, his left anterior descending artery seems and looks diffusely diseased and of small caliber in its mid to distal aspect. We were asked to assess the patient for potential surgical revascularization. PAST MEDICAL HISTORY: As above. PAST SURGICAL HISTORY: Cholecystectomy, adenoidectomy, appendectomy, joint replacement, total left knee arthroplasty, colonoscopy with polypectomy, knee arthroscopy, hemorrhoidectomy. SOCIAL HISTORY: He is , lives with his , who is actually volunteering this hospital. Never smoked. Denies alcohol or illicit drug usage. ALLERGIES: No known drug allergies. MEDICATIONS: As listed. REVIEW OF SYSTEMS: Negative except for the history of present illness. PHYSICAL EXAMINATION: GENERAL: Shows a gentleman, not in acute distress. No carotid bruit. S1, S2 with no murmur. LUNGS: Clear. ABDOMEN: Soft, nontender. EXTREMITIES: No peripheral edema. Again, cardiac catheterization as above. LABORATORY DATA: His lab work shows a hemoglobin of 16.7 and hematocrit of 49.5. Creatinine is 1.1. Normal liver function test. Echo showed moderately increased left ventricular wall thickness with normal size and function of the left ventricle. There is mild right ventricular dilatation with moderate to severe pulmonary hypertension with an estimated right ventricular systolic pressure of 62 mmHg with moderate tricuspid valve regurgitation. ASSESSMENT AND PLAN: Distal left main disease in a frail 87-year-old gentleman with pulmonary hypertension. Had an extensive discussion with his and him as well as Dr. Jarrell and with shared decision making, we decided to proceed with a moderate risk left main stenting with potential support. MMODL / IJN: [id number] /
[2023-05-25 03:18] LABS: Hepatitis A Antibody IgM Nonreactive; Hepatitis B Core IgM Nonreactive; Hepatitis B Surface Antigen Nonreactive; Hepatitis C IgG Antibody Nonreactive
[2023-05-25 03:38] LABS: Chol/HDL Ratio 2.62 Ratio; LDL Cholesterol,Calculated 65.7 mg/dL (0.0-131.0)
== END ==
LOC: CATHCVL 08:31
PROVIDERS: ATTEND Internal Medicine Interventional Cardiology
DX: I50.9 Heart failure, unspecified (principal); I25.10 Atherosclerotic heart disease of native coronary artery without angina pectoris; I11.0 Hypertensive heart disease with heart failure; I70.0 Atherosclerosis of aorta; E11.9 Type 2 diabetes mellitus without complications; E78.5 Hyperlipidemia, unspecified; K57.30 Diverticulosis of large intestine without perforation or abscess without bleeding
CPT/HCPCS: 94150; 93306; 93458; 76937; 80061; 80053; 80074; 84443; 83735; 85025; 81003; 87070; 83036; 71045; 93970; 93922; 93880; 71250; C1769 ×2; C1894; J2250; J2001; J1644; Q9967

== ENCOUNTER 2023-06-16 11:33 | Inpatient (IN) | payer MEDICARE, BC ==
[~2023-06-16 11:33] MED LIST changes: -HEPARIN SODIUM 1,000 UN/ML (10ML VL) IV ONE; -HEPARIN SODIUM 1,000 UN/ML (10ML VL) ONE; -IOPAMIDOL-370 100ML BTL INJ ONE; -LIDOCAINE 1% INJ 10MG/ML (20 ML MDV) SQ ONE; -METOPROLOL SUCCINATE (ER) 25 MG TAB.ER.24H PO SCH; -MIDAZOLAM 2 MG/2 ML VIAL IVP ONE; -RX INFO: IV CONTRAST WAS GIVEN 1 EACH MISC MISCELLANE PRN; -SODIUM CHLORIDE 0.9% 1,000 ML IV ONE; -SODIUM CHLORIDE 0.9% 1,000 ML IV SCH; -SODIUM CHLORIDE 0.9% 1,000 ML in EMPTY BAG 1 BAG IV SCH; -VERAPAMIL 2.5 MG/ML 2 ML AMP ONE; -VERAPAMIL SYRINGE (5 MG/10 ML) INTRAARTER ONE
[2023-06-16] MEDS: SODIUM CHLORIDE 0.9% 1,000 ML in EMPTY BAG 1 BAG IV SCH ×2 (12:10→22:06)
[2023-06-16 12:17] LABS: Glucose,Whole Blood 105 mg/dL (70-110)
[2023-06-16 12:33] LABS: African American GFR (CKD) >90 (>60 ml/min/1.73 sqM); Anion Gap 13 mmol/L; Blood Urea Nitrogen 20 mg/dL (9-20); Calcium 9.7 mg/dL (8.4-10.2); Carbon Dioxide 23 mmol/L (22-30); Chloride 99 mmol/L (98-107); Glucose 104 mg/dL (74-99); Non-African American GFR(CKD) 79 (>60 ml/min/1.73 sqM); Potassium 4.6 mmol/L (3.5-5.1); Sodium 135 mmol/L (137-145)
[2023-06-16 12:36] LABS: Basophils # (A) 0.1 k/uL (0-0.2); Basophils % (A) 1 %; Eosinophils # (A) 0.3 k/uL (0-0.7); Eosinophils % (A) 3 %; HCT 51.5 % (39.0-53.0); HGB 17.4 gm/dL (13.0-17.5); Lymphocytes # (A) 2.9 k/uL (1.0-4.8); Lymphocytes % (A) 29 %; MCH 30.6 pg (25.0-35.0); MCHC 33.8 g/dL (31.0-37.0); MCV 90.3 fL (80.0-100.0); Mean Platelet Volume 6.8; Monocytes # (A) 0.6 k/uL (0-1.0); Monocytes % (A) 6 %; Neutrophils # (A) 5.8 k/uL (1.3-7.7); Neutrophils % (A) 59 %; Platelet Count 288 k/uL (150-450); RDW 14.3 % (11.5-15.5); WBC 9.8 k/uL (3.8-10.6)
[2023-06-16] MEDS ORDERED: HEPARIN SODIUM 1,000 UN/ML (10ML VL) ONE (14:50)
[2023-06-16] MEDS ORDERED: MIDAZOLAM 2 MG/2 ML VIAL IVP ONE (14:53)
[2023-06-16] MEDS ORDERED: LIDOCAINE 1% INJ 10MG/ML (20 ML MDV) SQ ONE (14:54)
[2023-06-16] MEDS: MIDAZOLAM 2 MG/2 ML VIAL IVP ONE ×2 (14:57→15:44)
[2023-06-16] MEDS ORDERED: HEPARIN SODIUM 1,000 UN/ML (10ML VL) IV ONE (15:03)
[2023-06-16] MEDS ORDERED: TICAGRELOR 90 MG TAB ONE (15:05)
[2023-06-16] MEDS ORDERED: TICAGRELOR 90 MG TAB PO ONE (15:07)
[2023-06-16] MEDS ORDERED: PHENYLEPHRINE-0.9% NACL SYG 1,000 MCG/10 ML SYRINGE IVP ONE (15:20)
[2023-06-16] MEDS ORDERED: IOPAMIDOL-370 100ML BTL INJ ONE (15:47)
[2023-06-16] MEDS ORDERED: fentaNYL (PF) 50 MCG/ML 2 ML AMP ONE (15:57)
[2023-06-16] MEDS ORDERED: fentaNYL (PF) 50 MCG/ML 2 ML AMP IVP ONE (15:58)
[2023-06-16] MEDS ORDERED: ATROPINE SULFATE 0.1 MG/ML 10ML SYRINGE IV PRN (16:21)
[2023-06-16] MEDS ORDERED: ZOLPIDEM 5 MG TAB PO PRN (16:21)
[2023-06-16] MEDS ORDERED: ACETAMINOPHEN TAB 500 MG TAB PO PRN (16:21)
[2023-06-16] MEDS ORDERED: RX INFO: IV CONTRAST WAS GIVEN 1 EACH MISC MISCELLANE PRN (16:21)
[2023-06-16] MEDS ORDERED: NITROGLYCERIN SL TABS 0.4 MG TAB SUBLINGUAL PRN (16:21)
[2023-06-16] MEDS ORDERED: MAG HYDROX/AL HYDROX/SIMETH 30 ML CUP PO PRN (16:21)
[2023-06-16] MEDS ORDERED: SODIUM CHLORIDE 0.9% 1,000 ML in EMPTY BAG 1 BAG IV SCH (16:30)
[2023-06-16 16:45] LABS: Glucose,Whole Blood 78 mg/dL (70-110)
--- NOTE | 2023-06-16 18:38 | P.PCN ---
Date of Procedure: 06/16/23 Operative Findings: PERCUTANEOUS CORONARY INTERVENTION Performing physician Henry Jarrell M.D. Procedure Performed: 1. Successful stenting of the left main using 4.5 x 15 mm Xience drug-eluting stent with an excellent angiographic results. 2. Successful balloon angioplasty of the left circumflex using 3.0 x 15 mm Xience drug-eluting stent with an excellent angiographic result. 3. Adjunctive use of intravascular imaging and lithotripsy balloon and Impella 4. Ultrasound-guided access of the right common femoral artery and selective right common femoral artery angiogram 5. Left heart catheterization Indication: This is an 87-year-old gentleman who was diagnosed recently was severe symptomatic left main disease. He was deemed to be high risk by the cardiothoracic surgical team. He was brought today to undergo PCI with adjunctive use of mechanical support Approach: Right common femoral artery Complications: None Level of Sedation: Moderate with a sedation length of 78 minutes Procedure Discussion: After obtaining an informed consent the patient was brought to the cardiac clinical lab technologist. The right common femoral artery was cannulated using puncture technique under ultrasound guidance a micropuncture wire passed easily then I place the micropuncture sheath over the wire then I did exchange my echo puncture wire into an 035 wire. I did perform selective right common femoral artery angiogram to prove that the sheath position was appropriate. Subsequently I placed a 6- Cambodian sheath that the right common femoral artery. After that I did deploy "pre-close" two Perclose devices at 2:00 and 11:00. Subsequently I placed an 8-Cambodian sheath in the right common femoral artery. Then my 035 regular wire was exchanged into an 035 stiff wired using a pigtail catheter. Subsequently I placed a 14-Cambodian sheath at the right common femoral artery which was placed over a stiff 035 wire under fluoroscopy guidance and the sheath was advanced all the way to the hospital under fluoroscopy guidance. At that point a nticoagulation was initiated using heparin with continuous ACT monitoring. After that I did across the aortic valve using 035 wire with a pigtail catheter then I did left heart catheterization which showed LVEDP around 8 mmHg. Then I did advance an 018 Impella wire inside the pigtail and the pigtail was pulled up on the wire was positioned in the LV under fluoroscopy guidance. Subsequently the Impella was advanced over the [address] to the LV and subsequently his was turned on after assuring the position was quiet was no PVCs or ectopy is noted. At that point I did access the 14-Cambodian sheath using 18- gauge Cook needle and then I placed a 7-Cambodian 23 cm sheath inside the 14-Cambodian sheath. At that point I did engage the left main using a JL4 guiding catheter and that was 7-Cambodian. Subsequently I did wire the left main to the left anterior descending artery using a run-through wire and the wire was positioned in the distal LAD. Then after that attempting wiring the left circumflex using a run-through wire was unsuccessful but was successful using a whisper wire. After that I did intravascular ultrasound of the left main coronary artery and left anterior descending artery and that showed a diameter around 4.5 mm for both with extremely calcified left main almost looks like 360 of calcium noted. For that reason I decided to modify the calcium using lithotripsy balloon. I did advance 4.0 x 12 mm lithotripsy balloon over the run-through wire to the left main coronary artery. I did balloon angioplasty of the left main twice. Subsequently I did advance 4.5 x 15 mm stent where the stent was positioned under fluoroscopy guidance and I did deploy the stent under 12 keyona for about 15 seconds and that was performed after I pulled the whisper wire before I deployed the stent because the wire was hydrophilic wire. The following angiogram showed good flow in the left anterior descending artery and left main coronary artery but there was significant haziness involving the ostial left circumflex coronary artery. Attempting advancing run-through wire into the left circumflex was unsuccessful but was successful using a whisper wire which I felt there was some resistance and I was concerned that the wire was behind the stent struts. Because of that I left the wire into place and I was able to advance a BMW wire to the left circumflex from the left main coronary artery. Initially I did balloon angioplasty of the left circumflex by the ostium using 3.5 mm noncompliant balloon twice. After that I did kissing balloon angioplasty of both the left circumflex and left main coronary artery using 3.0 x 15 and 3.0 x 15 mm balloons and both were noncompliant balloons. Basically they are the same balloons. I did PTCA ballooning a kissing technique and both balloons were inflated under about 12 keyona multiple times. Final angiogram showed good results was EDILIA-3 flow in both the LAD and left circumflex coronary artery and the haziness in the ostial left circumflex coronary artery was definitely better. The patient tolerated the procedure very well. After that I did pull the 6- Cambodian sheath out over 035 wire after the guide was pulled out then I did pull the Impella out as well. I was able to achieve good hemostasis by deploying the two Perclose with excellent hemostasis and good pulse in the right foot bite. The patient tolerated the procedure very well Postprocedure Management: 1. Dual antiplatelet therapy using aspirin and Brilinta for at least 6-12 month 2. Aggressive cholesterol control 3. Risk factors modification
[2023-06-16 21:15] LABS: Glucose,Whole Blood 147 mg/dL (70-110)
[2023-06-16] MEDS: MELATONIN 5 MG TABLET PO SCH (22:05)
[2023-06-16] MEDS: POTASSIUM CHLORIDE ER 20 MEQ TAB.ER PO SCH (22:05)
[2023-06-16] MEDS: TICAGRELOR 90 MG TAB PO SCH (22:05)
[2023-06-16] MEDS: PRAVASTATIN SODIUM 40 MG TAB PO SCH (22:06)
[2023-06-17 05:38] LABS: HGB 15.5 gm/dL (13.0-17.5); MCH 30.4 pg (25.0-35.0); MCHC 34.3 g/dL (31.0-37.0); MCV 88.6 fL (80.0-100.0); Mean Platelet Volume 6.8; Platelet Count 257 k/uL (150-450); RBC 5.08 m/uL (4.30-5.90); RDW 14.4 % (11.5-15.5); WBC 13.3 k/uL (3.8-10.6)
[2023-06-17 06:02] LABS: African American GFR (CKD) >90 (>60 ml/min/1.73 sqM); Anion Gap 10 mmol/L; Blood Urea Nitrogen 14 mg/dL (9-20); Calcium 9.5 mg/dL (8.4-10.2); Carbon Dioxide 25 mmol/L (22-30); Chloride 100 mmol/L (98-107); Glucose 110 mg/dL (74-99); Non-African American GFR(CKD) 81 (>60 ml/min/1.73 sqM); Potassium 3.8 mmol/L (3.5-5.1); Sodium 135 mmol/L (137-145)
[2023-06-17 06:04] LABS: African American GFR (CKD) 90 (>60 ml/min/1.73 sqM); Non-African American GFR(CKD) 78 (>60 ml/min/1.73 sqM)
[2023-06-17 06:08] LABS: Glucose,Whole Blood 115 mg/dL (70-110)
--- NOTE | 2023-06-17 08:44 | P.PN ---
Progress Note - Text Progress Note Date: 06/17/23 The patient is a pleasant 87-year-old gentleman who underwent yesterday successful stenting of unprotected left main with adjunctive use of mechanical support He was seen and evaluated this morning. He is asymptomatic and hemodynamically stable. He underwent an EKG this morning which showed sinus mechanism was first-degree AV block along with RBBB. He is on atenolol. He did have an episode of bradycardia. I'm going to decrease the dose of atenolol to 50 mg daily from 100 mg by mouth daily. The right groin still oozing. I am going to monitor the patient for additional 24 hours out of the intensive care. At 3 south. He will be discharged tomorrow morning. He will be continue on dual antiplatelet therapy along with high intensity statin.
[2023-06-17] MEDS ORDERED: NON FORMULARY DRUG (Vitamin C/Biotin [Hair, Skin And Nails Chew] 1 EACH Tablet) PO SCH (09:00)
[2023-06-17] MEDS ORDERED: atenoloL 50 MG TAB PO SCH (09:00)
[2023-06-17] MEDS: ASPIRIN 81 MG PO SCH (10:08)
[2023-06-17] MEDS: CHLORTHALIDONE 25 MG TAB PO SCH (10:09)
[2023-06-17] MEDS: atenoloL 50 MG TAB PO SCH (10:09)
[2023-06-17] MEDS: POTASSIUM CHLORIDE ER 20 MEQ TAB.ER PO SCH ×2 (10:10→21:44)
[2023-06-17] MEDS: CHOLECALCIFEROL 25 MCG (1000 IU) TABLET PO SCH (10:10)
[2023-06-17] MEDS: TICAGRELOR 90 MG TAB PO SCH ×2 (10:10→21:44)
[2023-06-17 12:01] LABS: Glucose,Whole Blood 100 mg/dL (70-110)
[2023-06-17 16:15] LABS: Glucose,Whole Blood 81 mg/dL (70-110)
[2023-06-17 20:42] LABS: Glucose,Whole Blood 105 mg/dL (70-110)
[2023-06-17] MEDS: MELATONIN 5 MG TABLET PO SCH (21:44)
[2023-06-17] MEDS: PRAVASTATIN SODIUM 40 MG TAB PO SCH (21:45)
[2023-06-18 06:38] LABS: Glucose,Whole Blood 116 mg/dL (70-110)
[2023-06-18] MEDS: POTASSIUM CHLORIDE ER 20 MEQ TAB.ER PO SCH (08:22)
[2023-06-18] MEDS: CHLORTHALIDONE 25 MG TAB PO SCH (08:22)
[2023-06-18] MEDS: TICAGRELOR 90 MG TAB PO SCH (08:22)
[2023-06-18] MEDS: ASPIRIN 81 MG PO SCH (08:22)
[2023-06-18] MEDS: atenoloL 50 MG TAB PO SCH (08:22)
[2023-06-18] MEDS: CHOLECALCIFEROL 25 MCG (1000 IU) TABLET PO SCH (08:22)
[2023-06-18 08:27] VITALS: BP 108/73; PULSE 79; RESP 20; TEMP 98
[2023-06-18] MEDS ORDERED: metFORMIN 500 MG TAB PO SCH (17:30)
== END 2023-06-18 10:25 | disposition home or self-care (01) | DRG 218 ==
LOC: 2ORMAIN 11:33 → 2SICU 16:30
PROVIDERS: ADMIT Internal Medicine Interventional Cardiology; ATTEND Internal Medicine Interventional Cardiology
PROC: B240ZZ3 Ultrasonography of Single Coronary Artery, Intravascular (ICD-10-PCS; 2023-06-16)
PROC: 02HA3RJ Insertion of Short-term External Heart Assist System into Heart, Intraoperative, Percutaneous Approach (ICD-10-PCS; principal; 2023-06-16 14:00)
PROC: 4A023N7 Measurement of Cardiac Sampling and Pressure, Left Heart, Percutaneous Approach (ICD-10-PCS; 2023-06-16 14:00)
PROC: 5A0221D Assistance with Cardiac Output using Impeller Pump, Continuous (ICD-10-PCS; 2023-06-16 14:00)
PROC: 027034Z Dilation of Coronary Artery, One Artery with Drug-eluting Intraluminal Device, Percutaneous Approach (ICD-10-PCS; 2023-06-16 14:00)
PROC: B2111ZZ Fluoroscopy of Multiple Coronary Arteries using Low Osmolar Contrast (ICD-10-PCS; 2023-06-16 14:00)
DX: I25.10 Atherosclerotic heart disease of native coronary artery without angina pectoris (principal); I44.0 Atrioventricular block, first degree; I45.10 Unspecified right bundle-branch block; E11.9 Type 2 diabetes mellitus without complications; I10 Essential (primary) hypertension; E78.5 Hyperlipidemia, unspecified; F17.290 Nicotine dependence, other tobacco product, uncomplicated; Z79.82 Long term (current) use of aspirin; Z79.899 Other long term (current) drug therapy; Z79.84 Long term (current) use of oral hypoglycemic drugs
CPT/HCPCS: 0715T; 33990; 80048; 82565; 84132; 85025; 85027; 92920; 92978

== ENCOUNTER → 2024-01-17 | Outpatient (CLI) | payer MEDICARE, BC ==
[2024-01-17 15:41] LABS: Blood Urea Nitrogen 17.5 mg/dL (9.0-27.0); Carbon Dioxide 23.6 mmol/L (21.6-31.8); Chloride 102 mmol/L (96-109); Potassium 4.3 mmol/L (3.5-5.5); Sodium 138 mmol/L (135-145)
[2024-01-17 17:04] LABS: HCT 47.1 % (39.6-50.0); HGB 15.4 g/dL (13.0-17.0); MCH 29.4 pg (27.0-32.0); MCHC 32.7 g/dL (32.0-37.0); MCV 90.1 FL (80.0-97.0); Mean Platelet Volume 9.2 FL (9.5-12.2); NRBC Per 100 WBC 0 X 10*3/uL (0.00-0.01); Platelet Count 264 X 10*3/uL (140-440); RBC 5.23 X 10*6/uL (4.40-5.60); RDW 15.9 % (11.5-14.5); WBC 8.46 X 10*3/uL (4.50-10.00)
== END | disposition home or self-care (01) ==
LOC: LABPAT 09:17
PROVIDERS: ATTEND Internal Medicine Interventional Cardiology
DX: Z01.812 Encounter for preprocedural laboratory examination (principal); I25.10 Atherosclerotic heart disease of native coronary artery without angina pectoris; R06.02 Shortness of breath
CPT/HCPCS: 80051; 82565; 84520; 85027

== ENCOUNTER 2024-01-19 22:10 | Emergency (ER) | payer MEDICARE, BC ==
--- NOTE | 2024-01-19 23:27 | ED ---
ENT HPI - General Chief complaint: ENT Stated complaint: nose bleed on thinners Time Seen by Provider: 01/19/24 23:24 Source: patient, family, RN notes reviewed Mode of arrival: wheelchair Limitations: no limitations - History of Present Illness Initial comments: 88-year-old male presented to ER with chief complaint of epistaxis. He reports this started around 8 PM. He states it was heavy bleeding from both nostrils starting as he was eating dinner. He states he placed an ice pack over his nose which mildly helped with the nose. He states bleeding was persistent for 1 hour but was slightly subsiding upon arrival to the ER. He does take Plavix daily as he recently underwent cardiac catheterization with stent placement. He denies any difficulty breathing, nasal injury, fevers, chills, chest pain or other complaints. - Related Data Home Medications Medication Instructions Recorded Confirmed Cholecalciferol [Vitamin D3 (25 50 mcg PO DAILY 03/21/14 06/16/23 Mcg = 1000 Iu)] Pravastatin Sodium 40 mg PO HS 03/21/14 06/16/23 Potassium Chloride [Klor-Con 20] 20 meq PO HS 02/20/15 06/16/23 Potassium Chloride [Klor-Con 20] 40 meq PO DAILY 02/20/15 06/16/23 Aspirin EC [Ecotrin Low Dose] 81 mg PO DAILY 04/19/21 06/16/23 Melatonin [Melatonin Dissolving 10 mg PO HS 04/19/21 06/16/23 Tablet] Vitamin C/Biotin [Hair, Skin and 1 tab PO DAILY 04/19/21 06/16/23 Nails Chew] lisinopriL [Zestril] 2.5 mg PO HS 04/19/21 06/16/23 Acetaminophen Tab [Tylenol] 500 mg PO Q6HR PRN 05/19/23 06/16/23 Atenolol/Chlorthalidone 1 each PO DAILY 06/16/23 06/16/23 [Atenolol/Chlorthalidone 100-25] Previous Rx's Medication Instructions Recorded Ticagrelor [Brilinta] 90 mg PO BID #180 tab 06/18/23 Allergies Allergy/AdvReac Type Severity Reaction Status Date / Time No Known Allergies Allergy Verified 01/19/24 22:36 Review of Systems ROS Statement: Those systems with pertinent positive or pertinent negative responses have been documented in the HPI. ROS Other: All systems not noted in ROS Statement are negative. Past Medical History Past Medical History: Diabetes Mellitus, Hearing Disorder / Deafness, Hyperl ipidemia, Hypertension, Osteoarthritis (OA), Prostate Disorder, Thyroid Disorder Additional Past Medical History / Comment(s): total L knee. Other HX: Bradycardia, L neck mass which needs to be bx soon, enlarged prostate, hypothyroid, colon polyp, cataracts bilaterally, pain magangement consult for back pain History of Any Multi-Drug Resistant Organisms: None Reported Past Surgical History: Adenoidectomy, Appendectomy, Cholecystectomy, Joint Replacement, Orthopedic Surgery, Tonsillectomy Additional Past Surgical History / Comment(s): 01/02/15 Total L knee arthroplasty, colonoscopy with polypectomy-benign, KNEE ARTHROSCOPIC LEFT X2, L knee injections, hemorrhoidectomy, PAIN CLINIC INJECTIONS Past Anesthesia/Blood Transfusion Reactions: No Reported Reaction Past Psychological History: No Psychological Hx Reported Smoking Status: Never smoker Past Alcohol Use History: None Reported Past Drug Use History: None Reported - Past Family History Father Family Medical History: COPD Additional Family Medical History / Comment(s): Father was a smoker. Brother(s) Family Medical History: Cancer Additional Family Medical History / Comment(s): colon Sister(s) Family Medical History: Cancer Additional Family Medical History / Comment(s): colon Mother Family Medical History: Cancer Additional Family Medical History / Comment(s): colon-had colostomy. at 82yrs. General Exam Limitations: no limitations General appearance: alert, in no apparent distress Eye exam: Present: normal appearance, PERRL, EOMI. Absent: scleral icterus, conjunctival injection, periorbital swelling ENT exam: Present: normal exam, normal oropharynx, mucous membranes moist, other (no active bleeding from bilateral nares. dried blood in right nare. no swelling or septal heamtoma. no tenderness to nasal bone) Neck exam: Present: normal inspection. Absent: tenderness, meningismus, lymphadenopathy Respiratory exam: Present: normal lung sounds bilaterally. Absent: respiratory distress, wheezes, rales, rhonchi, stridor Cardiovascular Exam: Present: regular rate, normal rhythm, normal heart sounds. Absent: systolic murmur, diastolic murmur, rubs, gallop, clicks Skin exam: Present: warm, dry, intact, normal color. Absent: rash Course Vital Signs 01/19/24 01/19/24 01/20/24 22:27 23:34 00:36 Temperature 98.1 F 98.4 F 97.7 F Pulse Rate 86 78 90 Respiratory 18 16 16 Rate Blood Pressure 121/82 115/83 125/88 O2 Sat by Pulse 93 L 90 L 92 L Oximetry Medical Decision Making - Medical Decision Making Was pt. sent in by a medical professional or institution (BRODY Lindsey, [employer], urgent care, hospital, or prison...) When possible be specific @ -No Did you speak to anyone other than the patient for history (EMS, parent, family, police, friend...)? What history was obtained from this source @ -No Did you review nursing and triage notes (agree or disagree)? Why? @ -I reviewed and agree with nursing and triage notes Were old charts reviewed (outside hosp., previous admission, EMS record, old EKG, old radiological studies, urgent care reports/EKG's, prison records)? Report findings @ -No old charts were reviewed Differential Diagnosis (chest pain, altered mental status, abdominal pain women, abdominal pain men, vaginal bleeding, weakness, fever, dyspnea, syncope, headache, dizziness, GI bleed, back pain, seizure, CVA, palpatations, mental health, musculoskeletal)? @ -Nasal bone fracture, septal hematoma, epistaxis, foreign body This is not meant to be all-inclusive EKG interpreted by me (3pts min.). @ -None X-rays interpreted by me (1pt min.). @ -None done CT interpreted by me (1pt min.). @ -None done U/S interpreted by me (1pt. min.). @ -None done What testing was considered but not performed or refused? (CT, X-rays, U/S, labs)? Why? @ -None What meds were considered but not given or refused? Why? @ -None Did you discuss the management of the patient with other professionals (professionals i.e. BRODY Lindsey, [employer], lab, RT, psych nurse, psychosocial rehabilitation counselor, automation mechanic, t eacher, military source operations officer, case coordinator)? Give summary @ -No Was smoking cessation discussed for >3mins.? @ -No Was critical care preformed (if so, how long)? @ -No Were there social determinants of health that impacted care today? How? (Homelessness, low income, unemployed, alcoholism, drug addiction, transportation, low edu. Level, literacy, decrease access to med. care, assisted, rehab)? @ -No Was there de-escalation of care discussed even if they declined (Discuss DNR or withdrawal of care, Hospice)? DNR status @ -No What co-morbidities impacted this encounter? (DM, HTN, Smoking, COPD, CAD, Cancer, CVA, ARF, Chemo, Hep., AIDS, mental health diagnosis, sleep apnea, morbid obesity)? @ -Patient on Plavix Was patient admitted / discharged? Hospital course, mention meds given and route, prescriptions, significant lab abnormalities, going to OR and other pertinent info. @ -Discharge. 88-year-old male presented to the ER with a chief complaint of epistaxis. History and physical exam completed. Vitals stable. Patient in no signs of acute distress and nontoxic-appearing. Exam remarkable for dried blood to right nare. No active bleeding. No evidence of septal hematoma. Patient ev aluated in the ER for approximately 1 hour without recurrence of bleeding. Patient stable for discharge at this time. Strict return parameters discussed. Patient discharged in stable condition. Patient verbally expressed understanding and agreement with care plan. Case discussed with ED attending, Dr. Sandoval. Undiagnosed new problem with uncertain prognosis? @ -No Drug Therapy requiring intensive monitoring for toxicity (Heparin, Nitro, Insulin, Cardizem)? @ -No Were any procedures done? @ -No Diagnosis/symptom? @ -Epistaxis Acute, or Chronic, or Acute on Chronic? @ -Acute Uncomplicated (without systemic symptoms) or Complicated (systemic symptoms)? @ -Uncomplicated Side effects of treatment? @ -No Exacerbation, Progression, or Severe Exacerbation? @ -No Poses a threat to life or bodily function? How? (Chest pain, [place], [place], pneumonia, PE, COPD, DKA, ARF, appy, cholecystitis, CVA, Diverticulitis, Homicidal, Suicidal, threat to staff... and all critical care pts) @ -No Disposition Clinical Impression: Epistaxis Disposition: HOME SELF-CARE Condition: Stable Instructions (If sedation given, give patient instructions): Nosebleed (ED) Additional Instructions: Please follow-up with PCP. If nosebleed were to restart to follow the steps 1. Blow nose [address] clamp over nasal bridge. Remain in place for approximately 20 to 30 minutes. -Repeat these 3 times if bleeding persists. Return to the ER if bleeding persist. Is patient prescribed a controlled substance at d/c from ED?: No Referrals: Waldemar Phillips DO [Primary Care Provider] - 1-2 days Time of Disposition: 23:44
[2024-01-19 23:40] VITALS: RESP 16
[2024-01-20 00:38] VITALS: BP 125/88; PULSE 90; TEMP 97.7
== END 2024-01-20 00:36 | disposition home or self-care (01) ==
LOC: EC 22:10
DX: R04.0 Epistaxis (principal)
CPT/HCPCS: 99283

== ENCOUNTER 2024-01-22 11:21 | Emergency (ER) | payer MEDICARE, BC ==
--- NOTE | 2024-01-22 12:50 | ED ---
ENT HPI - General Chief complaint: ENT Stated complaint: Nose bleeds, SHAAN Time Seen by Provider: 01/22/24 11:40 Source: patient, family, RN notes reviewed Mode of arrival: ambulatory Limitations: no limitations - History of Present Illness Initial comments: This is an 88-year-old male presents the emergency department chief complaint of epistaxis. Patient states that he was outside walking the dog this morning when he began to experience nosebleeding from what he thought was bilateral naris. He attempted to stop the bleeding at home with a nasal clamp which she was provided and he was seen in the emergency department on 01/18. States that the bleeding did not subside. Currently, patient states that the bleeding has subsided since it began this morning. He denies any injury or trauma to the nose. He denies shortness of breath, headaches, fatigue. Patient is on plavix. - Related Data Home Medications Medication Instructions Recorded Confirmed Cholecalciferol [Vitamin D3 (25 100 mcg PO QAM 03/21/14 01/20/24 Mcg = 1000 Iu)] Pravastatin Sodium 40 mg PO HS 03/21/14 01/20/24 Potassium Chloride [Klor-Con 20] 20 meq PO HS 02/20/15 01/20/24 Potassium Chloride [Klor-Con 20] 40 meq PO QAM 02/20/15 01/20/24 Aspirin EC [Ecotrin Low Dose] 81 mg PO QAM 04/19/21 01/20/24 Melatonin [Melatonin Dissolving 15 mg PO 04/19/21 01/20/24 Tablet] Atenolol/Chlorthalidone 1 each PO QAM 06/16/23 01/20/24 [Atenolol/Chlorthalidone 100-25] Clopidogrel [Plavix] 75 mg PO QAM 01/20/24 01/20/24 metFORMIN HCL [Glucophage] 500 mg PO BID 01/20/24 01/20/24 Allergies Allergy/AdvReac Type Severity Reaction Status Date / Time No Known Allergies Allergy Verified 01/22/24 11:36 Review of Systems ROS Statement: Those systems with pertinent positive or pertinent negative responses have been documented in the HPI. ROS Other: All systems not noted in ROS Statement are negative. Past Medical History Past Medical History: Diabetes Mellitus, Hearing Disorder / Deafness, Hyperlipidemia, Hypertension, Osteoarthritis (OA), Prostate Disorder, Thyroid Disorder Additional Past Medical History / Comment(s): total L knee. Other HX: Bradycardia, L neck mass which needs to be bx soon, enlarged prostate, hypothyroid, colon polyp, cataracts bilaterally, pain magangement consult for back pain History of Any Multi-Drug Resistant Organisms: None Reported Past Surgical History: Adenoidectomy, Appendectomy, Cholecystectomy, Joint Replacement, Orthopedic Surgery, Tonsillectomy Additional Past Surgical History / Comment(s): 01/02/15 Total L knee arthroplasty, colonoscopy with polypectomy-benign, KNEE ARTHROSCOPIC LEFT X2, L knee injections, hemorrhoidectomy, PAIN CLINIC INJECTIONS Past Anesthesia/Blood Transfusion Reactions: No Reported Reaction Past Psychological History: No Psychological Hx Reported Smoking Status: Never smoker Past Alcohol Use History: None Reported Past Drug Use History: None Reported - Past Family History Father Family Medical History: COPD Additional Family Medical History / Comment(s): Father was a smoker. Brother(s) Family Medical History: Cancer Additional Family Medical History / Comment(s): colon Sister(s) Family Medical History: Cancer Additional Family Medical History / Comment(s): colon Mother Family Medical History: Cancer Additional Family Medical History / Comment(s): colon-had colostomy. at 82yrs. General Exam Limitations: no limitations General appearance: alert, in no apparent distress Head exam: Present: atraumatic, normocephalic, normal inspection ENT exam: Present: other (rigth nares dried blood with signs of bleeding) Expanded Mouth exam: Present: other (posterior oropharynx clots consistent with drainage from nosebleed) Neck exam: Present: normal inspection. Absent: tenderness, meningismus, lymphadenopathy Respiratory exam: Present: wheezes, decreased breath sounds. Absent: normal lung sounds bilaterally Cardiovascular Exam: Present: regular rate, normal rhythm, normal heart sounds. Absent: systolic murmur, diastolic murmur, rubs, gallop, clicks GI/Abdominal exam: Present: soft, normal bowel sounds. Absent: distended, tenderness, guarding, rebound, rigid Extremities exam: Present: normal inspection, full ROM, normal capillary refill. Absent: tenderness, pedal edema, joint swelling, calf tenderness Back exam: Present: normal inspection Neurological exam: Present: alert, oriented X3, CN II-XII intact Psychiatric exam: Present: normal affect, normal mood Course Vital Signs 01/22/24 01/22/2401/21/24 11:34 13:35 14:01 Temperature 98 F 97.6 F Pulse Rate 116 H 92 Respiratory 18 22 Rate Blood Pressure 138/92 116/69 O2 Sat by Pulse 98 94 L 96 Oximetry Medical Decision Making - Medical Decision Making Was pt. sent in by a medical professional or institution (BRODY Lindsey, [employer]IC[employer], urgent care, hospital, or half-way...) When possible be specific @ -No Did you speak to anyone other than the patient for history (EMS, parent, family, police, friend...)? What history was obtained from this source @ -No Did you review nursing and triage notes (agree or disagree)? Why? @ -I reviewed and agree with nursing and triage notes Were old charts reviewed (outside hosp., previous admission, EMS record, old EKG, old radiological studies, urgent care reports/EKG's, half-way records)? Report findings @ -The patient's emergency department visit note from 01/19/2024 where he presented with a nosebleed. There was no intervention done at the time of the emergency department visit due to patient's not experiencing any active bleeding while being here. Differential Diagnosis (chest pain, altered mental status, abdominal pain women, abdominal pain men, vaginal bleeding, weakness, fever, dyspnea, syncope, headache, dizziness, GI bleed, back pain, seizure, CVA, palpatations, mental health, musculoskeletal)? @ -epistaxis EKG interpreted by me (3pts min.). @ -None X-rays interpreted by me (1pt min.). @ -None done CT interpreted by me (1pt min.). @ -None done U/S interpreted by me (1pt. min.). @ -None done What testing was considered but not performed or refused? (CT, X-rays, U/S, labs)? Why? @ -None What meds were considered but not given or refused? Why? @ -None Did you discuss the management of the patient with other professionals (professionals i.e. BRODY Lindsey, [employer]IC[employer], lab, RT, psych nurse, social work assistant, armhole raiser lockstitch, teacher, combat information center officer, insurance case manager)? Give summary @ -No Was smoking cessation discussed for >3mins.? @ -No Was critical care preformed (if so, how long)? @ -No Were there social determinants of health that impacted care today? How? (Homelessness, low income, unemployed, alcoholism, drug addiction, transportatio n, low edu. Level, literacy, decrease access to med. care, correction, rehab)? @ -No Was there de-escalation of care discussed even if they declined (Discuss DNR or withdrawal of care, Hospice)? DNR status @ -No What co-morbidities impacted this encounter? (DM, HTN, Smoking, COPD, CAD, Cancer, CVA, ARF, Chemo, Hep., AIDS, mental health diagnosis, sleep apnea, morbid obesity)? @ -None Was patient admitted / discharged? Hospital course, mention meds given and route, prescriptions, significant lab abnormalities, going to OR and other pertinent info. @ -Discharge. 88-year-old male with epistaxis. On examination patient is noted to have active bleeding from the right naris with dried blood. There is also drainage of blood down the patient's posterior oropharynx consistent with nosebleed. Patient is denying other acute symptoms and there are no findings on physical examination. Nasal clamp was kept in place on reevaluation has markedly subsided. Placed an order for Afrin nasal spray which is applied topically to the right naris. Reevaluation approximately 30 minutes after Afrin administration there has been no active bleeding. Patient has had a period Of roughly 45 minutes with no active bleeding from the right naris. Patient will be provided with additional nasal clamps and sent home with Afrin nasal spray and instructed to use this medication only as needed every 12 hours to aid in stopping nosebleeding. Patient has an appointment scheduled with cardiology on Wednesday for cardiac catheterization. All questions answered at bedside and strict return parameters discussed with the patient he is verbalized understanding. Case discussed with Dr. Burroughs. Undiagnosed new problem with uncertain prognosis? @ -No Drug Therapy requiring intensive monitoring for toxicity (Heparin, Nitro, Insulin, Cardizem)? @ -No Were any procedures done? @ -No Diagnosis/symptom? @ -epistaxis Acute, or Chronic, or Acute on Chronic? @ -acute Uncomplicated (without systemic symptoms) or Complicated (systemic symptoms)? @ -uncomplicated Side effects of treatment? @ -No Exacerbation, Progression, or Severe Exacerbation? @ -No Poses a threat to life or bodily function? How? (Chest pain, USA, VT, pneumonia, PE, COPD, DKA, ARF, appy, cholecystitis, CVA, Diverticulitis, Homicidal, Suicidal, threat to staff... and all critical care pts) @ -No Disposition Clinical Impression: Epistaxis Disposition: HOME SELF-CARE Condition: Good Instructions (If sedation given, give patient instructions): Nosebleed (ED) Additional Instructions: Return the emergency department if your symptoms worsen or not improve. Use nasal clamp at home and Afrin only as needed every 12 hours for continued nosebleed. Follow-up as scheduled on Wednesday with your scratcher. Is patient prescribed a controlled substance at d/c from ED?: No Referrals: Waldemar Phillips DO [Primary Care Provider] - 1-2 days Time of Disposition: 13:47
[2024-01-22] MEDS: OXYMETAZOLINE 0.05% NASL SPRAY 1 SPRAY BOTTLE NASAL STA (12:54)
[2024-01-22 13:36] VITALS: BP 116/69; PULSE 92; RESP 22; TEMP 97.6
== END 2024-01-22 14:01 | disposition home or self-care (01) ==
LOC: EC 11:21
DX: R04.0 Epistaxis (principal)
CPT/HCPCS: 99283

== ENCOUNTER → 2024-01-24 | Day surgery (SDC) | payer MEDICARE, BC ==
[2024-01-20 13:32] VITALS: BMI 27.9
[~2024-01-24] MED LIST changes: -ASPIRIN 325 MG TAB PO STA; +HEPARIN SODIUM 1,000 UN/ML (10ML VL) ONE; -HEPARIN SODIUM,PORCINE (1 ML) 2,500 UNIT in SODIUM CHLORIDE 0.9% 250 ML IRRIGATION PRN; -HEPARIN SODIUM,PORCINE 10,000 UNIT in SODIUM CHLORIDE 0.9% 1,000 ML IRRIGATION PRN; +LIDOCAINE 1% INJ 10MG/ML (20 ML MDV) ONE; +RX INFO: IV CONTRAST WAS GIVEN 1 EACH MISC MISCELLANE PRN; +SODIUM CHLORIDE 0.9% 1,000 ML IV SCH; +VERAPAMIL 2.5 MG/ML 2 ML AMP ONE
[2024-01-24] MEDS: IV FLUID CONTINUATION 1,000 ML IV ONE (08:00)
[2024-01-24] MEDS: SODIUM CHLORIDE 0.9% 1,000 ML in EMPTY BAG 1 BAG IV SCH (08:00)
[2024-01-24 08:07] VITALS: TEMP 97.8
[2024-01-24] MEDS: ASPIRIN 325 MG TAB PO ONE (08:12)
[2024-01-24 08:13] LABS: Glucose,Whole Blood 103 mg/dL (70-110)
[2024-01-24] MEDS: MIDAZOLAM 2 MG/2 ML VIAL IVP ONE (09:32)
[2024-01-24] MEDS: LIDOCAINE 1% INJ 10MG/ML (20 ML MDV) SQ ONE ×2 (09:33→09:34)
[2024-01-24] MEDS: VERAPAMIL SYRINGE (5 MG/10 ML) INTRAARTER ONE (09:35)
[2024-01-24] MEDS: HEPARIN SODIUM 1,000 UN/ML (10ML VL) IV ONE (09:40)
[2024-01-24] MEDS: HEPARIN SODIUM,PORCINE 10,000 UNIT in SODIUM CHLORIDE 0.9% 1,000 ML IRRIGATION PRN (09:58)
[2024-01-24] MEDS: IOPAMIDOL-370 100ML BTL INJ ONE (09:58)
[2024-01-24] MEDS: HEPARIN SODIUM,PORCINE (1 ML) 2,500 UNIT in SODIUM CHLORIDE 0.9% 250 ML IRRIGATION PRN (09:59)
--- NOTE | 2024-01-24 10:13 | P.PCN ---
Date of Procedure: 01/24/24 Operative Findings: CARDIAC CATHETERIZATION PERFORMING PHYSICIAN: Henry Jarrell MD, RPVI PROCEDURE PERFORMED: 1. Selective right and left coronary angiogram and left heart catheterization 2. IFR of the RCA 3. Ultrasound-guided access of the right radial artery INDICATION: Unstable angina COMPLICATION: None APPROACH: Right radial artery LEVEL OF SEDATION: Moderate with a sedation length of 12 minutes PROCEDURE DESCRIPTION: After obtaining an informed consent, the patient was brought to cardiac laborer airport maintenance. Local anesthesia was performed using lidocaine subcutaneously. The right radial artery was cannulated using Seldinger technique, the guidewire passed easily, following that we advanced a 5-Hungarian sheath dilator assembly, the wire and dilator were removed and sheath was flushed. Following that, 2 mg of verapamil along with 5000 unit heparin were given. Selective right and left coronary angiogram using a 6-Hungarian JR4 and JL 3.5 catheters. Following that we did left heart catheterization using 6-Hungarian pigtail catheter. After that I decided to do an IFR of the RCA with after zeroing the Doppler wire and equalizing between the Doppler wire and guiding catheter which was JR4 guiding catheter the RCA was engaged and subsequently the PDA was wired. The IFR came into at 0.94 The procedure was completed there was no complication. SELECTIVE CORONARY ANGIOGRAM: The right coronary artery: Large-caliber vessel and a dominant vessel with intermediate disease involving the PDA documented to be nonflow limiting by Doppler wire Left main: Has mild disease only The left circumflex: Large-caliber vessel nondominant vessel with mild to moderate disease only The left anterior descending artery: Is angiographically normal. Gives rise into a diagonal branch which has mild disease only HEMODYNAMICS: The LVEDP was 12 mmHg with no significant gradient was seen across aortic valve CONCLUSION: 1. Patent stent in the left main/proximal LAD 2. 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
[2024-01-24 12:10] VITALS: RESP 18
[2024-01-24 13:06] VITALS: BP 86/61; PULSE 68
== END ==
LOC: CATHCVL 07:30
PROVIDERS: ATTEND Internal Medicine Interventional Cardiology
DX: I25.110 Atherosclerotic heart disease of native coronary artery with unstable angina pectoris (principal); Z95.5 Presence of coronary angioplasty implant and graft
CPT/HCPCS: 93458; 93799; C1769 ×3; C1887; C1894; J2250; J1644 ×3; J2001; Q9967

== ENCOUNTER 2024-02-23 03:22 | Emergency (ER) | payer MEDICARE, BC ==
[2024-02-23] MEDS ORDERED: OXYMETAZOLINE 0.05% NASL SPRAY 1 SPRAY BOTTLE ONE (03:36)
[2024-02-23] MEDS ORDERED: SODIUM BICARB 8.4% 50 ML SYR (1 MEQ/ML) ONE (05:06)
[2024-02-23] MEDS ORDERED: EPINEPHrine 10 ML SYRINGE (0.1 MG/ML) ONE (05:06)
[2024-02-23] MEDS ORDERED: PROPOFOL 10 MG/ML 20 ML VIAL IV ONE (05:21)
[2024-02-23] MEDS ORDERED: propofoL 100 ML IV ONE (05:21)
--- NOTE | 2024-04-06 12:57 | XR ---
EXAM: XR Chest, 1 View CLINICAL HISTORY: ETT & OGT placement S/P cardiac arrest & CPR. Possible broken ribs. TECHNIQUE: Frontal view of the chest. COMPARISON: No relevant prior studies available. FINDINGS: Lungs: Moderate amount of patchy airspace opacities throughout both lungswith lower lung zone predominance. Pleural space: Small bilateral pleural effusions. Mediastinum:Unremarkable. Normal mediastinal contour. Bones/joints:No acute findings. Tubes, lines and devices: Tip of endotracheal tube is about 7 cm above the laura. Tip of enteric tube sidehole of enteric tube is about 10 cm above the GE junction. IMPRESSION: 1. Tip of enteric tube sidehole of enteric tube is about 10 cm above the GE junction. Recommend advancement by at least 15 cm. 2. Moderate amount of patchy airspace opacities throughout both lungs with lower lung zone predominance suggest pulmonary edema, pneumonia, and/or aspiration. 3. Small bilateral pleural effusions. Radiologist: Loc Adames M.D. Electronically Signed: 02/23/24 06:01 Study first marked ready to read at 05:48, study last marked ready to read at 05:48, initial results transmitted at 06:01 [facility]
== END 2024-02-23 03:30 | disposition expired ==
LOC: EC 03:22
DX: I46.9 Cardiac arrest, cause unspecified (principal)
CPT/HCPCS: 71045; 92950; 93005; 94002; 99283